=== PATIENT | male | born 1940 | race Caucasian/White ===

== ENCOUNTER 2017-03-07 17:48 | Inpatient (IN) ==
[2017-03-07 19:11] LABS: BASO% 0.4 % (0.0-0.8); EOS# 0.27 X1000 (0.0-0.7); EOS% 5.7 % (0.0-10.0); HEMATOCRIT 35.3 % (42.0-52.0); HEMOGLOBIN 11.8 g/dL (14.0-18.0); LYMPH% 23.2 % (20.5-51.1); MANUAL DIFF NEEDED? NO; MCH 35.3 PG (27-31); MCHC 33.4 g/dL (33-37); MCV 105.7 FL (81-99); MONO# 0.76 X1000 (0.11-0.59); MPV 9.8 FL (7.4-10.4); NEUT% 54.7 % (42.2-75.2); PLT 134 X1000 (130-400); RBC 3.34 XMIL (4.7-6.1)
[2017-03-07 19:20] LABS: INR 1.2; PROTIME 12.8 Seconds (9.2-11.7); PTT 25.7 Seconds (22.0-36.0)
[2017-03-07] MEDS ORDERED: ASPIRIN PO ONE (19:21)
[2017-03-07 19:38] LABS: AGAP 12; ALBUMIN 3.3 g/dL (3.5-5.0); ALKALINE PHOSPHATASE 70 U/L (32-122); BUN 15 mg/dL (8-22); CALCIUM 9.7 mg/dL (8.8-10.2); CHLORIDE 105 mmol/L (98-107); CK PROFILE 85 U/L (24-204); COSMO 278; GOT 29 U/L (10-34); GPT 18 U/L (10-44); MAGNESIUM 1.9 mg/dL (1.5-2.7); POTASSIUM 3.7 mmol/L (3.5-5.1); SODIUM 139 mmol/L (136-145); TCO2 22 mmol/L (25-35); TOTAL BILIRUBIN 0.46 mg/dL (0.20-1.00)
--- NOTE | 2017-03-07 19:43 | Diag Imaging Result Document ---
PROCEDURE NAME: CHEST-PORTABLE - 03/07/2017 AP PORTABLE CHEST AT 1836 HOURS: FINDINGS: There is some vague increase in opacity in the lower lung pfeiffer compared to 01/26/2015 which may be largely technical. Otherwise, the appearance of the chest has not changed significantly. IMPRESSION: No acute disease.
--- NOTE | 2017-03-07 20:19 | PROVIDER DOCUMENTATION ---
This chart was entered by Neeta Swan Scribe, acting as scribe for Geovanni Rose MD. HPI-General Adult - General Chief Complaint: Dizziness Stated Complaint: EXTREMELY LOW BP Time Seen by Provider: 03/07/17 18:18 Source: patient Allergies/Adverse Reactions: Patient Allergies Allergy/AdvReac Type Severity Reaction Status Date / Time morphine Allergy SWELLING Verified 03/07/17 18:28 Home Medications: Home Medication List Medication Instructions Recorded Confirmed Last Taken Type Aspirin 325 mg PO DAILY 01/26/15 03/07/17 03/07/17 10:00 History Azathioprine 50 mg PO BID 01/26/15 03/07/17 03/07/17 10:00 History Carvedilol 12.5 mg PO DAILY 01/26/15 03/07/17 03/07/17 10:00 History Esomeprazole [Nexium] 40 mg PO DAILY 01/26/15 03/07/17 03/07/17 10:00 History Infliximab [Remicade] 100 mg IV ORDERED 01/26/15 03/07/17 03/07/17 History Niacin [Niaspan] 750 mg PO BID 01/26/15 03/07/17 10/04/15 18:00 History 750 PRAVAstatin [Pravachol] 80 mg PO QHS 01/26/15 03/07/17 03/06/17 21:00 History RAMIpril [Altace] 2.5 mg PO DAILY 01/26/15 03/07/17 03/07/17 10:00 History Tamsulosin HCl 0.4 mg PO DAILY 01/26/15 03/07/17 03/06/17 History Vit B12/Lmefolate Ca/Vit B6/B2 1 each PO DAILY 01/26/15 03/07/17 03/07/17 10:00 History [Cerefolin Tablet] Alendronate Sodium 70 mg PO WE 09/29/15 03/07/17 03/01/17 History - History of Present Illness -Gen Adult Nature of Presenting Problems: 76 year old M presents to the ED with a cc of weakness and fatigue with an onset of this morning. Pt states that for the past week he has been staggering walking x1 week. PT denies shortness of breath, nausea, vomiting, and chest pains. Location of Pain/Injury: reports: none Pain Radiation: reports: no radiation Severity: reports: mild Onset/Duration: reports: 1 week ago Timing: reports: still present Context/Activities at Onset: reports: none Modifying Factors: improves with: nothing Associated Symptoms: reports: dizziness, fatigue, weakness Similar Symptoms Previously?: No Recently seen or treated by another doctor?: No Review of Systems - Adult - REVIEW OF SYSTEMS - ADULT Constitutional: reports: fatique. denies: chills, fever Eyes: reports: no symptoms reported Ears, Nose, Mouth & Throat: reports: no symptoms reported Cardiovascular: denies: chest pain, palpitations Respiratory: denies: cough, shortness of breath Gastrointestinal: denies: abdominal pain, nausea, vomiting Genitourinary: reports: no symptoms reported Musculoskeletal: reports: no symptoms reported Integumentary: reports: no symptoms reported Neurological: reports: dizziness/vertigo. denies: headache/migraines Psychiatric: reports: no symptoms reported Endocrine: reports: no symptoms reported Hematologic/Lymphatic: reports: no symptoms reported Allergic/Immunologic: reports: no symptoms reported All Other Systems: Reviewed and Negative Past History - Adult - PAST MEDICAL HISTORY-ADULT Review of Records: reports: Nursing Assessment Review, Medications Reviewed Major Childhood Illnesses: reports: denies history Cardiovascular: reports: HTN, MS Respiratory: reports: denies history Gastrointestinal: reports: denies history Obstetrical/Gynecological: reports: denies history Genitourinary: reports: denies history Musculoskeletal: reports: arthritis Neurological: reports: denies history Endocrine/Immune: reports: denies history Other Conditions: reports: denies history - PRIOR SURGERIES/PROCEDURES Surgical/Procedure History: reports: other (heart cath) - IMMUNIZATION STATUS Childhood Immunizations: See Nurse Assessment Flu Vaccine: See Nurse Assessment - FAMILY HISTORY Family History: reviewed, not pertinent - SOCIAL HISTORY Smoking: non-smoker Substance Use: none/never Alcohol Use Frequency: occasionally Physical Exam-General - PHYSICAL EXAM-ADULT Initial Vital Signs Reviewed: Yes - CONSTITUTIONAL General Appearance: appears well, alert, no apparent distress - RESPIRATORY Respiratory: chest non-tender, lungs clear, normal breath sounds - CARDIOVASCULAR Cardiovascular: bradycardia - GASTROINTESTINAL (ABDOMEN) Abdominal Exam: normal bowel sounds, non tender, soft - SKIN Integumentary: normal color, normal turgor, warm/dry - PSYCHIATRIC Psych/Mental Status: normal mood/affect, normal thought content, normal thought process, oriented x 3 Progress - PLAN OF CARE/RESULTS Progress/Plan/Lab Results: Vital Signs - 8 hr 03/07/17 18:02 03/07/17 18:13 Temperature 97.9 F Pulse Rate 57 L Pulse Rate [Standing] 68 Pulse Rate [Supine] 58 L Respiratory Rate 18 Blood Pressure 85/55 Blood Pressure [Standing] 79/51 Blood Pressure [Supine] 90/50 O2 Sat by Pulse Oximetry 100 Laboratory Results - last 24 hr 03/07/17 03/07/17 03/07/17 18:35 18:35 18:35 WBC 4.74 L RBC 3.34 L Hgb 11.8 L Hct 35.3 L MCV 105.7 H MCH 35.3 H MCHC 33.4 RDW Std Deviation 12.8 Plt Count 134 MPV 9.8 Immature Gran % (Auto) 0.0 Neut % (Auto) 54.7 Lymph % (Auto) 23.2 Winn % (Auto) 16.0 H Eos % (Auto) 5.7 Baso % (Auto) 0.4 Immature Gran # (Auto) 0.00 Neut # (Auto) 2.59 Lymph # (Auto) 1.10 L Winn # (Auto) 0.76 H Eos # (Auto) 0.27 Baso # (Auto) 0.02 PT INR PTT (Actin FS) D-Dimer 0.89 H Sodium 139 Potassium 3.7 Chloride 105 Carbon Dioxide 22 L Anion Gap 12 BUN 15 Creatinine 1.1 Estimated GFR/1.73 m2 > 60 BUN/Creatinine Ratio 14 Glucose 100 Calculated Osmolality 278 Calcium 9.7 Magnesium 1.9 Total Bilirubin 0.46 AST 29 ALT 18 Alkaline Phosphatase 70 Creatine Kinase 85 Troponin T Vik-B-Xsibczagnue Pept Total Protein 7.0 Albumin 3.3 L Globulin 3.7 Albumin/Globulin Ratio 0.9 03/07/17 03/07/17 03/07/17 18:35 18:35 18:35 WBC RBC Hgb Hct MCV MCH MCHC RDW Std Deviation Plt Count MPV Immature Gran % (Auto) Neut % (Auto) Lymph % (Auto) Winn % (Auto) Eos % (Auto) Baso % (Auto) Immature Gran # (Auto) Neut # (Auto) Lymph # (Auto) Winn # (Auto) Eos # (Auto) Baso # (Auto) PT 12.8 H INR 1.20 PTT (Actin FS) 25.7 D-Dimer Sodium Potassium Chloride Carbon Dioxide Anion Gap BUN Creatinine Estimated GFR/1.73 m2 BUN/Creatinine Ratio Glucose Calculated Osmolality Calcium Magnesium Total Bilirubin AST ALT Alkaline Phosphatase Creatine Kinase Troponin T < 0.010 [id number] Pept 611 H Total Protein Albumin Globulin Albumin/Globulin Ratio Orders Category Date Time Status Cardiac Monitoring DIRECTED Care 03/07/17 18:18 Active Saline Loc NOW Care 03/07/17 18:18 Active ANGIOGRAM/PULMONARY ARTERIES [CT] Stat Exams 03/07/17 19:57 Ordered CHEST-PORTABLE [RAD] Stat Exams 03/07/17 18:19 Draft CBC WITH ELECTRONIC DIFF [HEME] Stat Lab 03/07/17 18:35 Completed CK PROFILE [SP CHEM] Stat Lab 03/07/17 18:35 Completed COMPREHENSIVE METABOLIC PANEL [CHEM] Stat Lab 03/07/17 18:35 Completed D-DIMER [CHEM] Stat Lab 03/07/17 18:35 Completed MAGNESIUM [CHEM] Stat Lab 03/07/17 18:35 Completed PRO B-NATRIURETIC PEPTIDE Stat Lab 03/07/17 18:35 Completed PROTIME WITH INR [COAG] Stat Lab 03/07/17 18:35 Completed PTT [COAG] Stat Lab 03/07/17 18:35 Completed TROPONIN T Stat Lab 03/07/17 18:35 Completed Aspirin Med 03/07/17 19:21 Discontinued 325 mg PO NOW ONE Dopamine 400 mg/D5w Med 03/07/17 19:25 Active 400 mg in 500 ml IV 27.216 mls/hr Dr. Rose talked to Dr. Snow who was advised of this pt. PT will be admitted to [facility]. Result Diagrams: 03/08/17 04:40 03/08/17 04:40 - EKG 1 Time of EKG reading by physician:: 18:08 EKG Read and Signed by:: Geovanni Rose EKG Interpretation (*Must complete 3 of following elements*): Abnormal Rate: 52 Rhythm: sinus bradycardia with fusion complexes [place]: left ST Wave: non-specific ST changes (T wave abnormality, consider anterior ischemia ) Comments: Nonspecific intraventricular block - CT/MRI 1 CT Study: Angiogram Impression: Normal CT Results: no PE. COPD and pulmonary and pleural fibrosis: Dr. Branch - CONSULTS/PCP/HOSPITALIST Notification #1 *Consult/PCP/Hospitalist*: Dr. Olivo Time Discussed: 20:00 Consult Disposition: Admit #2 Consult: Transfer Center Time Discussed: 21:04 #3 Consult: Dr. Jones(-cardiology) Time Discussed: 22:47 Consult Disposition: other ("wean pt off of any medications that will slow heart rate, keep him on Dopamine, wean pt off of Dopamine in the morning, if heart rate will not stay up will take in the morning, hopefully we will have a bed") Departure - Departure Time of Disposition Decision: 05:50 DIAGNOSIS: Bradycardia Disposition: ADMITTED INPATIENT 09 Certified Medical Emergency: Emergent Condition: Fair - Critical Care Note This patient required my direct personal management.: Yes This chart was documented by the indicated scribe, (Neeta Swan Scribe) and accurately reflects the services I performed and decisions made by me, Geovanni Rose MD, as attested by the provider's signature.
[2017-03-07] MEDS: DOPAMINE 400 MG/D5W 400 MG/500 ML IV.SOLN IV SCH (20:38)
--- NOTE | 2017-03-07 20:51 | Diag Imaging Result Document ---
PROCEDURE NAME: ANGIOGRAM/PULMONARY ARTERIES - 03/07/2017 CT OF THE CHEST WITH INTRAVENOUS CONTRAST AND CLARITY: FINDINGS: There are fibrotic changes present in the left apex, more so than on the right side. There is extensive COPD. There are no filling defects in the pulmonary arteries. There is no evidence of aortic aneurysm or dissection. There are some coronary calcifications, particularly in the left anterior descending artery. There are granulomata in the liver and spleen. There are gallstones. Some fibrotic changes are seen in the posterior right upper lobe. IMPRESSION: No evidence of pulmonary emboli. COPD and pulmonary and pleural fibrosis.
--- NOTE | 2017-03-08 00:12 | HISTORY AND PHYSICAL ---
PRIMARY CARE PHYSICIAN: Dr. Luis E Moore. CHIEF COMPLAIN HE: Is dizziness, fatigue for several weeks. HISTORY OF PRESENTING ILLNESS: A 76-year-old male with a history of rheumatoid arthritis, hypertension and previous AK had presented to emergency department with complaint of having dizziness and fatigued and worsening weakness over the past several weeks. The patient states that he went to have some laboratories done prior to receiving treatment for his rheumatoid arthritis and at that time, he was noted to have low blood pressure and heart rate. He went home and he became more dizzy and fatigued and subsequently he was brought to the emergency department. In the ER, he was evaluated and found to have low blood pressure in the 80s systolic and also found to have a heart rate around 30s and 40s. The patient's case was discussed with cardiology in [place] who had accepted the patient for pacemaker evaluation however no beds were available. Subsequently the patient will be admitted to ICU until a bed is available in [facility]. At the time of my examination, patient had denied any headache, fever, chills, chest pain, shortness of breath, hemoptysis or any weight changes but complained of still feeling fatigued and dizzy. PAST MEDICAL HISTORY: Includes rheumatoid arthritis, hypertension, previous AK and low back pain. PAST SURGICAL HISTORY: Coronary stent, kidney cyst removal. ALLERGIES: To morphine. CURRENT MEDICATIONS: Include pravastatin 40 mg p.o. at bedtime, Niaspan 750 mg p.o. b.i.d., azathioprine 50 mg p.o. b.i.d., Flomax 0.4 mg p.o. daily, Altace 2.5 mg p.o. daily, carvedilol 12.5 mg p.o. daily, Nexium 40 mg p.o. daily, aspirin 325 mg p.o. daily, Remicade every 8 weeks, alendronate 70 mg weekly. SOCIAL HISTORY: He is a former smoker. Admits to social alcohol use. Denies any illicit drug use. He is fairly independent. FAMILY HISTORY: Positive for coronary disease in father. REVIEW OF SYSTEMS: Twelve point review of systems is as in HPI. Other systems negative. PHYSICAL EXAMINATION: GENERAL: Cooperative, friendly male. He is resting comfortably now. VITAL SIGNS: Temperature 97.9 degrees, pulse is 57, respiration 18, blood pressure 85/55. He is saturating 100%. HEENT: Atraumatic, normocephalic. Extraocular movements intact. PERRLA. NECK: No masses. CHEST: Clear to auscultation. CARDIOVASCULAR: Regular rate and rhythm. ABDOMEN: Soft. Positive bowel sounds. EXTREMITIES: No edema. NEURO: He is awake, alert, oriented x3. : No bladder distention. SKIN: Warm and due turgor. LABORATORIES AND STUDIES: WBC 4.74, hemoglobin 11.8, hematocrit 35.3, platelets is 134,000. Sodium 139, potassium 3.7, chloride 105, CO2 of 22, BUN is 15, creatinine is 1.1, glucose is 100. Troponin 0.010. ASSESSMENT: A 76-year-old male with a history of rheumatoid arthritis and previous myocardial infarction, apparently was having symptoms of dizziness and fatigue for several weeks. He presented to emergency department where he was noted to have a low heart rate in the 30s and 40s and also having low blood pressure. He was put on dopamine drip and he will be admitted to intensive care unit until a bed is available for patient to be transferred to [facility] for evaluation of possible pacemaker. 1. Symptomatic bradycardia possibly related to medications versus other cardiac pathology. 2. Hypotension. 3. Rheumatoid arthritis. 4. Chronic low back pain. PLAN: 1. We will admit patient to ICU. 2. We will continue patient on dopamine. 3. Continue with IV fluids. 4. Awaiting transfer to [facility]. 5. We will give patient adequate pain control. 6. We will put patient on DVT prophylaxis with SCDs. 7. We will continue to follow and reassess. cc: Andres Olivo MD
[2017-03-08] MEDS ORDERED: NS 1,000 ML IV SCH (01:12)
[2017-03-08] MEDS ORDERED: ZOFRAN IV PRN (01:12)
[2017-03-08 05:05] LABS: MANUAL DIFF NEEDED? NO
[2017-03-08 05:11] LABS: BASO% 0.3 % (0.0-0.8); EOS# 0.29 X1000 (0.0-0.7); HEMOGLOBIN 12.4 g/dL (14.0-18.0); LYMPH# 0.94 X1000 (1.2-3.4); LYMPH% 16.1 % (20.5-51.1); MCH 34.9 PG (27-31); MCHC 33.5 g/dL (33-37); MCV 104.2 FL (81-99); MONO# 0.72 X1000 (0.11-0.59); MONO% 12.3 % (1.7-9.3); MPV 9.5 FL (7.4-10.4); NEUT% 66.3 % (42.2-75.2); PLT 130 X1000 (130-400); RBC 3.55 XMIL (4.7-6.1)
[2017-03-08 05:32] LABS: AGAP 11; BUN 12 mg/dL (8-22); CALCIUM 9.4 mg/dL (8.8-10.2); CHLORIDE 105 mmol/L (98-107); COSMO 283; POTASSIUM 3.6 mmol/L (3.5-5.1); SODIUM 141 mmol/L (136-145); TCO2 25 mmol/L (25-35)
--- NOTE | 2017-03-08 06:09 | EKG Report ---
Test Performed on : 03/07/2017 6:08:00 PM Test Reason : Blood Pressure : / mmHG Vent. Rate : 052 BPM Atrial Rate : 052 BPM P-R Int : 142 ms QRS Dur : 130 ms QT Int : 444 ms P-R-T Axes : 037 -45 066 degrees QTc Int : 412 ms Sinus bradycardia. with fusion complexes Left axis deviation Nonspecific intraventricular block T wave abnormality, consider anterior ischemia Abnormal ECG When compared with ECG of 29-SEP-2015 09:27, fusion complexes are now present QRS duration has increased Unconfirmed Result
[2017-03-08] MEDS: PRILOSEC PO SCH (06:24)
[2017-03-08] MEDS ORDERED: ASPIRIN PO SCH (09:00)
--- NOTE | 2017-03-08 09:30 | CONSULTATION ---
DATE OF CONSULTATION: 03/08/2017 INDICATION: Hypotension. HISTORY OF PRESENT ILLNESS: Mr. Rosen is a 76-year-old male with a history of rheumatoid arthritis, hypertension and previous SD, previously followed by Dr. Karen Yao. He presented with complaints of dizziness, fatigue and weakness over the last few days. The patient has had poor oral intake over the last week for unclear reasons. He apparently went to Dr. Vega's office for a Remicade infusion. There, he was noted to be hypotensive; he is not sure what his heart rate he. There was a question about some relative bradycardia, but again we have no objective evidence to detail the blood pressures or heart rates in the office. Apparently, the patient was referred for possible pacemaker in [place] last night in the ER, but again I have no objective evidence to detail any bradycardic episodes as I have no EKG evidence, telemetry evidence or recorded heart rates in the vitals to show the patient was significantly bradycardic. Presently, he has been admitted to the ICU. He is on a low-dose dopamine drip, as well as IV fluids. The patient feels better today. He has not had any chest pain. He has had no shortness of breath. PAST MEDICAL HISTORY: 1. Rheumatoid arthritis. 2. Ischemic cardiomyopathy. Cardiac catheterization in 2014 demonstrated an EF of 30%. He had a patent stent in the left anterior descending. No significant disease in the circumflex or the right coronary. 3. Hypertension. 4. Hyperlipidemia. 5. Chronic anemia. 6. Reflux disease. 7. Rheumatoid arthritis. Currently on Remicade infusions. SOCIAL HISTORY: Former smoker. Occasional alcohol use. No illicit drugs. FAMILY HISTORY: Significant for coronary disease in his father. REVIEW OF SYSTEMS: A 10 system review of systems is negative, except for those things mentioned in HPI. PHYSICAL EXAMINATION: Vital Signs: The patient has been afebrile. His heart rates documented in our system have been between the 50s and the 80s. His heart rates yesterday up in the ICU have been anywhere from the 60s to 80s. His systolic blood pressures was documented at 85/55 on presentation. The immediate next check was documented almost 3 hours after that and was 111/69. His systolic blood pressures here in the ICU have been anywhere from the 90s to 120s. General: Generally, he is in no acute distress. HEENT: Oropharynx is moist. Poor dentition. Eye examination shows pink conjunctivae, white sclerae. Neck examination: Difficult secondary to an extensive cox. He has no obvious carotid bruits. Cardiovascular: He is in a regular rate and rhythm. He has no obvious murmurs. He has no S3. He has no lower extremity edema. Chest: Exam is clear bilaterally. He has no increased work of breathing. Abdomen: Soft, nontender, nondistended. He has no obvious organomegaly. Skin Exam: Warm and dry throughout without any rashes. Neurological: He is moving all extremities well. Cranial nerves 2-12 are intact without any sensation deficits. Psychiatric: He is alert, oriented, pleasant. He has normal mood and affect. PERTINENT DATA: He has a white count of 5.8. His hematocrit is 37. His platelet count is 130. His sodium is 141, his potassium is 3.6, his BUN is 12, his creatinine is 1. His TSH is 0.35. ProBNP was 611 on admit. His albumin level was 3.3. He had an EKG demonstrating sinus bradycardia at 52 beats per minute. He has evidence for anterior infarct, suggestion of a nonspecific intraventricular conduction delay, and appears a left bundle type pattern. He had a pulmonary arteriogram demonstrating no evidence of acute emboli, COPD, and pulmonary and pleural fibrosis. ASSESSMENT: 1. Ischemic cardiomyopathy appears relatively stable. 2. Relative hypotension with reports of bradycardia, but again no objective evidence here or from the doctor's office to support this. PLAN: I agree with withholding the ramipril as well as the Coreg. Dopamine will be decreased today. We just need to see where his blood pressure goes from here. I will decrease his aspirin to 81 mg daily. I will check a transthoracic echo today. Presently, we will continue to watch him on telemetry. His TSH was normal. cc: Ron Henao MD
[2017-03-08] MEDS: PATIENT'S OWN MED PO SCH (09:49)
[2017-03-08] MEDS: NORCO-7.5 PO PRN ×2 (09:51→18:38)
[2017-03-08] MEDS: IMURAN PO SCH ×2 (09:52→20:02)
[2017-03-08] MEDS: ASPIRIN PO SCH (09:52)
[2017-03-08] MEDS: DOPAMINE 400 MG/D5W 400 MG/500 ML IV.SOLN IV SCH (13:04)
--- NOTE | 2017-03-08 14:46 | PROGRESS NOTE ---
DATE: 03/08/2017 SUBJECTIVE: Patient is feeling fine. Denies any sensation of dizziness, lightheadedness, chest pain or shortness of breath or palpitations. OBJECTIVE: Vital Signs: Temperature 98.3 degrees, heart rate 72, respiratory rate 16, blood pressure 100/63, O2 saturation 100% on 2 L nasal cannula. General Examination: This is a 76-year- old male, lying in bed, in no acute distress. HEENT: Head is normocephalic and atraumatic. Anicteric sclerae and pale conjunctivae. Mucous membranes moist. Neck: Supple. No JVD noted. No carotid bruits. No lymphadenopathy. No thyromegaly. Cardiovascular: S1, S2 heard. Bradycardic. No murmurs, gallops, or rubs. Regular rate and rhythm. Respiratory: Clear bilaterally to auscultation. No work of breathing or using accessory muscles. Abdomen: Soft, nontender to palpation. Bowel sounds present. No organomegaly. Extremities: No clubbing, cyanosis, or edema. Peripheral pulses present in both legs. Neurological: Patient is alert and oriented x3. Able to move 4 extremities. Cranial nerves 2-12 grossly normal. LABORATORY DATA: CBC, BMP are completely unremarkable. ASSESSMENT AND PLAN: 1. Symptomatic bradycardia. 2. Ischemic cardiomyopathy. 3. Rheumatoid arthritis. 4. Low back pain. 5. Patient was admitted to hospital for symptomatic bradycardia but unfortunately there is no EKG that supports that report that diagnosis. Patient has been evaluated by Dr. Henao today and also yesterday Dr. Snow was consulted by phone and he thinks that this patient may need to be transferred to [facility]. But now, the recommendation for Surgery is to hold ramipril and beta-blockers and see how this patient does. Then if this patient needs pacemaker that can be arranged in the office. 6. For rheumatoid arthritis, we will continue with pain medication. 7. Further recommendations to follow according to the clinical situation of the patient. cc: Brodie Ramirez MD
[2017-03-08] MEDS ORDERED: PRAVACHOL PO SCH (21:00)
[2017-03-09 05:12] LABS: HDL 58 mg/dL (35-55); LDL 40 mg/dL; TRIGLYCERIDES 47 mg/dL (39-160); VLDL 9 mg/dL
[2017-03-09] MEDS: PRILOSEC PO SCH (06:04)
--- NOTE | 2017-03-09 06:53 | EKG Report ---
Test Performed on : 03/09/2017 06:08:20 AM Test Reason : hypotension Blood Pressure : / mmHG Vent. Rate : 066 BPM Atrial Rate : 066 BPM P-R Int : 138 ms QRS Dur : 128 ms QT Int : 376 ms P-R-T Axes : 058 -46 113 degrees QTc Int : 394 ms Normal sinus rhythm. Left axis deviation Left bundle branch block Nonspecific T wave abnormality Abnormal ECG When compared with ECG of 07-MAR-2017 18:08, fusion complexes are no longer present Nonspecific T wave abnormality no longer evident in Inferior leads Nonspecific T wave abnormality has replaced inverted T waves in Anterior leads Confirmed by Norman VENEGAS, Patrice Bai ([id number]) on 03/09/2017 8:38:43 AM
--- NOTE | 2017-03-09 08:09 | ECHO REPORT ---
ORDER DATE: 03/08/2017 INTERPRETING PHYSICIAN: Carmine Maldonado MD. CLINICAL INDICATIONS: A 76-year-old male with hypotension, history of myocardial infarction. M-MODE MEASUREMENTS: Right ventricle: 2.8 cm. Left ventricle end diastole: 6.4 cm. Left ventricle end systole: 5.3 cm. Posterior wall: 0.9 cm. Interventricular septum: 0.9 cm. Left atrium: 5.5 cm. Aortic root: 3.6 cm. SUMMARY OF 2-DIMENSIONAL IMAGIN. The left ventricular chamber is significantly dilated. The ejection fraction by computer tracing is estimated at 35% to 37%. Visually, it is more like 30%. 2. There are multiple areas of wall motion abnormality involving the anteroseptal segment that is akinetic. The apex is dyskinetic. The anterior wall, mid to apical, is akinetic. The mid to distal inferior wall is also severely impaired. The mid interventricular septum and the apical septal segment are akinetic. That would be consistent with severe ischemic cardiomyopathy, at least 2-vessel coronary disease. 3. The right ventricle is at the upper limits of normal, shows good function. 4. The aortic valve looks normal, color flow mapping unremarkable. 5. The mitral valve shows a very mild degree of regurgitation. Pulsed wave Doppler of mitral inflow shows mild reversal of the E and the A wave. The tissue Doppler of septal and lateral mitral annulus averages 7 cm. Pulsed wave Doppler of pulmonary venous flow is normal. There is no evidence of diastolic dysfunction. Color flow mapping of the mitral valve indicates a mild degree of regurgitation. 6. The tricuspid valve looks normal with a mild degree of regurgitation. The inferior vena cava is not dilated. Pulmonary pressure is estimated at 27-32 mmHg. 7. The left atrium is moderately to significantly enlarged. 8. The pulmonic valve is normal, color flow mapping unremarkable. 9. There is no pericardial effusion. I do not see definite evidence of thrombus. Clinical correlation recommended. cc: MD Ron Dickey MD
[2017-03-09] MEDS: DOPAMINE 400 MG/D5W 400 MG/500 ML IV.SOLN IV SCH (08:47)
[2017-03-09] MEDS: IMURAN PO SCH (10:22)
[2017-03-09] MEDS: PATIENT'S OWN MED PO SCH (10:22)
[2017-03-09] MEDS: ASPIRIN PO SCH (10:22)
[2017-03-09 12:04] VITALS: BP 127/78
--- NOTE | 2017-03-10 13:10 | DISCHARGE SUMMARY ---
ADMISSION DATE: 03/07/2017 DISCHARGE DATE: 03/09/2017 CONSULTATIONS: Ron Henao MD, Cardiology. PERTINENT PROCEDURES: 1. Pulmonary arteriogram showed no evidence of pulmonary emboli. COPD and pulmonary and pleural fibrosis. 2. Echocardiogram showed an EF of 35% to 37%. Multiple areas of wall motion abnormality. Mild degree of mitral valve regurgitation. DISCHARGE DIAGNOSES: 1. Symptomatic bradycardia; however, there is no EKG that support diagnosis. Patient evaluated by Dr. Henao. They have held his verapamil as well as decreased his beta blockers. 2. Ischemic cardiomyopathy. Aware. 3. Rheumatoid arthritis. Continue home medications. 4. Low back pain. Continue current management. HOSPITAL COURSE: Mr. Rosen is a 76-year-old gentleman with a history of rheumatoid arthritis, hypertension and previous [place], presented to the emergency department with complaint of having dizziness, fatigue, and worsening weakness over the past several weeks. The patient went to have labs done prior to receiving treatment for his rheumatoid arthritis and at that time, he is noted to have low blood pressure and heart rate. He went home where he became more dizzy and fatigued and subsequently was brought to the ED. He was found to have a low blood pressure in the 80s and found to have a heart rate in the 30 and 40s days. The case was discussed with Cardiology in [place] who accepted the patient for pacemaker evaluation; however, no beds were available. The patient was admitted to the ICU with a cardiology consult. He was started on IV fluids. His ramipril as well as Coreg were held. He was placed on a dopamine drip. His aspirin was decreased to 81 mg daily. He also underwent echocardiogram. His TSH was normal. Pulmonary arteriogram was negative. It just showed COPD, pulmonary and pleural fibrosis. Unfortunately, there is no EKG that supports the diagnosis of bradycardia. For now, the recommendation for the patient being transferred is just to hold his ramipril and beta-blockers and see the patient does. He was able to come off his dopamine drip. He has maintained a normal sinus rhythm with appropriate blood pressures. Heart rate has been 100-120s over 60s and 70s. The patient is approved for discharge today by Cardiology with the discontinuation of his ramipril, as well as a decrease in his beta chucky and a decrease in his home aspirin to 81. Vital signs at time of his discharge, temperature 98.8 degrees, heart rate 66, respirations 13, blood pressure is 127/78, O2 is 98% on room air. DISCHARGE MEDICINES: 1. Alendronate sodium 70 mg p.o. WE. 2. Low-dose aspirin 81 mg p.o. daily. 3. Azathioprine 50 mg p.o. b.i.d. 4. Coreg 3.125 mg p.o. b.i.d. 5. Nexium 40 mg p.o. daily. 6. Remicade 100 mg g IV as ordered. 7. Niaspan 70 mg p.o. b.i.d. 8. Pravachol 80 mg p.o. 9. Tamsulosin HCL 0.4 mg p.o. daily. 10. Cerefolin 1 each p.o. daily. FOLLOWUP: Patient is being discharged home. He will need to follow up with his primary care physician, Dr. Mehreen Moore in 7-10 days as well as his senior java programmer, in 1-2 weeks after his discharge. The patient's Coreg has been reduced as well as his aspirin has been reduced. If patient has any more asymptomatic episodes of dizziness, he is to return to the ED for any worsening of symptoms. TIME SPENT: Discharge time 36 minutes. Dictated by TRUNG Spring for Brodie Ramirez MD cc: MD Mehreen Chan MD MTDD
== END 2017-03-09 15:06 | disposition home or self-care (01) ==
LOC: ED 17:48 → ICU 23:59 → SUATTDRO 23:59
PROVIDERS: ATTEND Internal Medicine

== ENCOUNTER 2019-02-22 13:24 | Inpatient (IN) ==
[2019-02-22] MEDS ORDERED: NS 1,000 ML IV ONE ×2 (14:21→15:08)
[2019-02-22 14:33] LABS: BASO# 0.03 X1000 (0.0-0.2); BASO% 0.1 % (0.0-0.8); HEMATOCRIT 41.7 % (42.0-52.0); HEMOGLOBIN 14.3 g/dL (14.0-18.0); IMM GRAN# 0.07 X1000 (0.0-0.04); IMM GRAN% 0.3 % (0.0-0.5); LYMPH# 1.31 X1000 (1.2-3.4); MCH 33.6 PG (27-31); MCHC 34.3 g/dL (33-37); MCV 97.9 FL (81-99); MONO# 1.54 X1000 (0.11-0.59); MONO% 7.1 % (1.7-9.3); MPV 10.1 FL (7.4-10.4); NEUT# 18.75 X1000 (1.4-6.5); NEUT% 86.5 % (42.2-75.2); PLT 296 X1000 (130-400); RBC 4.26 XMIL (4.7-6.1); RDW 13.4 % (11.5-14.5)
[2019-02-22 14:49] LABS: INR 1.18; PROTIME 15.6 Seconds (11.0-16.0)
[2019-02-22 14:50] LABS: PTT 35.6 Seconds (22.3-41.8)
[2019-02-22 14:56] LABS: ALBUMIN 3.9 g/dL (3.5-5.0); CREATININE 3.9 mg/dL (0.7-1.2); POTASSIUM 4.4 mmol/L (3.5-5.1); TOTAL BILIRUBIN 0.9 mg/dL (0.20-1.00); TOTAL PROTEIN 8.9 g/dL (6.3-8.3)
--- NOTE | 2019-02-22 15:03 | Diag Imaging Result Doc PS360 ---
EXAM: CHEST-PORTABLE HISTORY: vomiting TECHNIQUE: Single view of the chest was performed portably. COMPARISON: 03/07/2017 FINDINGS: The cardiomediastinal silhouette is within normal limits. There is a left transvenous pacemaker. The pulmonary vasculature is not congested. No infiltrate, effusion, or pneumothorax is appreciated. IMPRESSION: No acute cardiopulmonary abnormality is identified. Electronically signed by Moira Del Valle 02/22/2019 3:01 PM
[2019-02-22] MEDS ORDERED: TYLENOL PO PRN (16:23)
[2019-02-22] MEDS ORDERED: ZOFRAN IV PRN (16:23)
--- NOTE | 2019-02-22 16:23 | Diag Imaging Result Doc PS360 ---
EXAM: ABDOMEN FLAT/UPRIGHT 02/22/2019 HISTORY: pain TECHNIQUE: Flat and upright abdomen COMMENT: There is a fair amount of stool in the ascending colon. There is a loop of small bowel in the midabdomen distended with gas. There is no evidence for organomegaly or mass. There are no previous studies. IMPRESSION: Constipation. Electronically signed by Ran Branch 02/22/2019 4:21 PM
[2019-02-22] MEDS ORDERED: PROTONIX 80 MG in NS 80 ML IV SCH (16:30)
--- NOTE | 2019-02-22 16:41 | EKG Report ---
Test Performed on : 02/22/2019 1:35:27 PM Test Reason : ER Blood Pressure : / mmHG Vent. Rate : 094 BPM Atrial Rate : 094 BPM P-R Int : 144 ms QRS Dur : 130 ms QT Int : 448 ms P-R-T Axes : 068 -70 085 degrees QTc Int : 560 ms Atrial-sensed ventricular-paced rhythm Abnormal ECG When compared with ECG of 09-MAR-2017 06:08, Electronic ventricular pacemaker has replaced Sinus rhythm. Unconfirmed Result
[2019-02-22] MEDS: NS 1,000 ML IV SCH (17:04)
--- NOTE | 2019-02-22 17:52 | HISTORY AND PHYSICAL ---
PRIMARY CARE PROVIDER: Dr. Mehreen Moore. UROLOGIST: Dr. Rishi Arrieta. DRINK MIXER: Dr. Ron Henao. REMICADE INFUSION: At Dr. Myers. SKINNING MACHINE FEEDER: Dr. Barrios. CHIEF COMPLAINT: Nausea and vomiting. HISTORY OF PRESENT ILLNESS: Mr. Geovani Rosen is a 78-year-old male with a medical history of atrial fibrillation on Eliquis with a permanent pacemaker, rheumatoid arthritis, myocardial infarction with a stent, and he states he has a history of actually having hypotension, low blood pressures. Apparently, last Monday morning was the last time he took all of his medications except for his Nexium. This includes Eliquis that he is on for the a-fib. He stopped that then, as well. He states that he had had some Activia and Ensure for breakfast and afterwards started developing burning epigastric pain and just below the sternum. He has not had an appetite and he has actually had issues with swallowing and states he has a hard time getting down pills, and at least over the past week, apparently, there has been at least a 10-pound weight loss over the past couple of weeks. His last bowel movement was last night. He states it was formed and brown, but he has been having vomiting that originally started out as water but now is black, and he vomits several times a day and has been unable to hold anything down. He denies having any fever or chills, and there are no other complaints other than what was just listed, other than he has become much more weak due to being dehydrated and malnourished. He comes in, and a sample of the emesis was sent, and it was positive for blood. He was also hypotensive with blood pressure in the 90s that improved up to 126 after receiving IV fluids. He still has the nausea. He still has epigastric pain, and will admit for GI workup of either GI bleed or gastritis due to being on Eliquis and continuous emesis. Also, he has acute kidney injury which will treat due to the dehydration and unable to keep anything down, and another problem where he has had dysphagia and he has had weight loss along with that and having difficulties taking his medications. He will need to be transferred to [facility] due to the need for a english drawer workup. PAST MEDICAL HISTORY: 1. Atrial fibrillation on Eliquis with a permanent pacemaker. 2. Rheumatoid arthritis. 3. Kidney cyst, and is seen by Dr. Arrieta for that, has actually had the cyst removed in the past. 4. Myocardial infarction or coronary artery disease with a history of cardiac stent x1. 5. Chronic lower back pain. 6. Low blood pressure. 7. Although he states he has low blood pressure, he does have a history of hypertension, as he takes antihypertensives. 8. BPH. SURGICAL HISTORY: 1. Cardiac stent x1 in 2004. 2. Kidney cyst removed. 3. Right lower lobectomy on the lung due to chronic pneumonia and airspace disease. 4. Back surgery. 5. Bilateral eye lens implants. 6. His last left heart cath was in 2014. 7. Left kidney cyst removed. 8. In 2017, a permanent pacemaker. SOCIAL HISTORY: Quit smoking in the late 1970s. Denies alcohol. Denies illicit drug use. He lives at home alone, but his grandson stays with him to help him out. He usually can get around without any problems, but only recently has needed an assistive device due to the increased weakness. FAMILY HISTORY: Father had myocardial infarction at 62. Mother had stroke at 70. One brother had myocardial infarction at 80. Another brother at 64 had a myocardial infarction. Another brother at 64 had cancer of unknown origin due to advanced stage when it was found. Sister of lupus at 67, and he has 3 more living siblings, 2 brothers age 79 and 82 and 1 sister age 70. ALLERGIES: Morphine. HOME MEDICATIONS: 1. Pravachol 80 mg p.o. nightly. 2. Azathioprine 50 mg p.o. twice daily. 3. Multivitamin one tab p.o. daily. 4. Cozaar 25 mg p.o. daily. 5. Eliquis 5 mg p.o. twice daily. 6. Nexium 40 mg p.o. daily. 7. Remicade 100 mg IV as directed. 8. Tamsulosin 0.4 mg p.o. daily. 9. Aspirin 81 mg daily. 10. Coreg 3.125 mg p.o. twice daily. REVIEW OF SYSTEMS: Fourteen-point review of systems are complete and all were negative except for those mentioned in the above HPI. PHYSICAL EXAMINATION: VITAL SIGNS: Temperature 97.8, heart rate 79, respiratory rate 20, blood pressure 126/81, O2 saturation 97% on 2 L. GENERAL: Mr. Geovani Rosen is a 78-year-old male who is in no acute distress, is able to answers questions appropriately. He is hard of hearing. HEENT: Atraumatic, normocephalic. Pupils equal, round, reactive to light. Extraocular movements intact. Mucous membranes are dry. Sclera is pale. NECK: Trachea midline. CARDIOVASCULAR: S1, S2, regular rate and rhythm, no rubs, gallops, or murmurs. No lower extremity edema. +2 dorsalis and radial pulses. Negative JVD or carotid bruits. PULMONARY: Clear to auscultate bilateral breath sounds. No accessory muscle use or work of breathing noted. GI: Soft. Hypoactive bowel sounds x4. Nontender with palpation this time. EXTREMITIES: About a 4/5 strength in all extremities. Moves all extremities equally. NEUROLOGICAL: Alert and oriented x4, follows commands. Sensory is intact. SKIN: Warm, dry, and intact. LABORATORY DATA: White blood cells 21,000, hemoglobin 14, hematocrit 41, platelet count 296. INR is 1.18. PTT is 35.6. Sodium 132, potassium 4.4, BUN 68, creatinine 3.9, glucose 156, calcium 10. Bilirubin 0.96, AST 16, ALT 10. CK is 40, troponin less than 0.01. Albumin is 3.9. Gastroccult is positive. IMAGING: Abdominal x-ray shows constipation. Chest x-ray shows no acute findings. ASSESSMENT AND PLAN: 1. Acute gastritis versus upper gastrointestinal bleed. Emesis started out as clear and then turned dark over the past week, and he has had excessive emesis. He does take Eliquis to prevent stroke with atrial fibrillation but the last time he took that was this past Monday, so he has been off of it for 3 days and is also on aspirin. Will hold those for now. Will start him on Carafate q.6 h., Protonix drip. He is hemoconcentrated, actually, not low on his hemoglobin and hematocrit, but this is likely due to the significant amount of emesis he has been having, and he has complained of epigastric pain, but that has resolved. 2. Acute kidney injury. Creatinine is 3.9 with a BUN of 68, and he can run anywhere from 1 to 1.3 on his creatinine. He seems very dehydrated--all of his numbers look dehydrated--and he is going to receive IV fluid hydration. 3. Leukocytosis. This could be inflammatory. He is afebrile since he has been here. He is not tachycardic. His blood pressure was a little bit soft at first, but this is likely just from dehydration, so will monitor the white count. Chest x-ray does not show any sign of pneumonia, either. A urinalysis is pending. 4. History of hypertension, but a little hypotensive at this time. We are going to hold those meds for now. 5. Benign prostatic hypertrophy. We will continue the tamsulosin. Otherwise, he would be voiding every 30 minutes and not fully emptying his bladder. 6. Coronary artery disease with a history of myocardial infarction and stent. Holding meds for now. We are going to hold aspirin for now and the beta-chucky. 7. History of atrial fibrillation with permanent pacemaker. He has been on Eliquis for prevention of stoke. That is going to have to be held for now but will resume as soon as possible. 8. DVT prophylaxis. SCDs. 9. Complaints of dysphagia, difficulty with swallowing pills or medications, and he has had weight loss due to this and protein calorie malnutrition; he has been able to take in stuff like Ensure and Activia, but it has to be really soft food, so he will need a swallow evaluation. Dictated by TRUNG Candlearia for Konstantin Hurtado MD cc: TRUNG Candelaria MD
--- NOTE | 2019-02-22 18:16 | PROVIDER DOCUMENTATION ---
This chart was entered by Cindy Bernabe Scribe, acting as scribe for Freedom Kraft MD. HPI-Abdominal Pain/GI Problem - General Chief Complaint: Nausea/Vomiting Stated Complaint: generalized weakness Time Seen by Provider: 02/22/19 13:51 Source: patient Allergies/Adverse Reactions: Patient Allergies Allergy/AdvReac Type Severity Reaction Status Date / Time morphine Allergy SWELLING Verified 10/14/18 16:30 Home Medications: Home Medication List Medication Instructions Recorded Confirmed Last Taken Type Azathioprine 50 mg PO BID 01/26/15 02/22/19 10/14/18 07:30 History Esomeprazole [Nexium] 40 mg PO DAILY 01/26/15 02/22/19 10/14/18 07:30 History Infliximab [Remicade] 100 mg IV ORDERED 01/26/15 02/22/19 03/07/17 History PRAVAstatin [Pravachol] 80 mg PO QHS 01/26/15 02/22/19 10/14/18 07:30 History Tamsulosin HCl 0.4 mg PO DAILY 01/26/15 02/22/19 10/14/18 07:30 History Vit B12/Lmefolate Ca/Vit B6/B2 1 each PO DAILY 01/26/15 02/22/19 10/14/18 07:30 History [Cerefolin Tablet] Aspirin [Aspir-Low] 81 mg PO DAILY #30 tablet. 03/09/17 02/22/19 10/14/18 07:30 Rx Carvedilol [Coreg] 3.125 mg PO BID #60 tablet 03/09/17 02/22/19 10/14/18 07:30 Rx Losartan [Cozaar] 25 mg PO DAILY 10/14/18 02/22/19 10/14/18 07:30 History Apixaban [Eliquis] 5 mg PO BID 02/22/19 02/22/19 Unknown History Apixaban [Eliquis] 5 mg PO BID 02/22/19 02/22/19 Unknown History - History of Present Illness-ABD Nature of Presenting Problems: 78 yom presents to ED c/o low blood pressure, nausea, vomiting, generalized weakness, dizziness, passing out, SOB, weight loss, decreased appetitie and terrible abdominal pain for last 4 days that is getting worse. Pt states he is having trouble swallowing his meds and can only eat activia. Pt states he was given meds to help increase appetite but they didn't help, so he stopped them. Pt has hx of ND, Afib and HTN. Pt has pacemaker/defibrillator implanted in left upper chest. Pt blood pressure is 79/64 upon exam. Abdominal Pain Onset Location: reports: LUQ Pain Radiation: reports: no radiation Quality of Pain: reports: pressure, tightness Severity in ED: reports: moderate Onset/Duration: reports: 4 days ago Timing: reports: still present, getting worse Modifying Factors: improves with: nothing Review of Systems - Adult - REVIEW OF SYSTEMS - ADULT Constitutional: reports: see HPI, chills, fatique, weight loss Eyes: reports: no symptoms reported Ears, Nose, Mouth & Throat: reports: no symptoms reported Cardiovascular: reports: no symptoms reported Respiratory: reports: see HPI, dyspnea on exertion, shortness of breath. denies: cough Gastrointestinal: reports: see HPI, abdominal pain (LUQ), hematemesis, nausea, poor appetite, vomiting. denies: rectal bleeding Genitourinary: reports: no symptoms reported Musculoskeletal: reports: no symptoms reported Integumentary: reports: no symptoms reported Neurological: reports: see HPI, dizziness/vertigo, syncope. denies: tremors Psychiatric: reports: no symptoms reported Endocrine: reports: no symptoms reported Hematologic/Lymphatic: reports: no symptoms reported Allergic/Immunologic: reports: no symptoms reported All Other Systems: Reviewed and Negative Past History - Adult - PAST MEDICAL HISTORY-ADULT Review of Records: reports: Nursing Assessment Review, Medications Reviewed, Social history reviewed & non-contributory. Major Childhood Illnesses: reports: denies history Cardiovascular: reports: HTN, ND Respiratory: reports: denies history Gastrointestinal: reports: denies history Obstetrical/Gynecological: reports: denies history Genitourinary: reports: denies history Musculoskeletal: reports: arthritis Neurological: reports: denies history Endocrine/Immune: reports: denies history Other Conditions: reports: denies history - PRIOR SURGERIES/PROCEDURES Surgical/Procedure History: reports: other (heart cath) - IMMUNIZATION STATUS Childhood Immunizations: See Nurse Assessment Flu Vaccine: See Nurse Assessment - FAMILY HISTORY Family History: reviewed, not pertinent - SOCIAL HISTORY Smoking: quit greater than 1 year Physical Exam-General - CONSTITUTIONAL General Appearance: alert, thin. negative: combative - HEAD, EARS, NOSE, MOUTH & THROAT HENMT: TMs normal. negative: moist mucous membranes, angioedema - NECK Neck: supple, Brudzinski's sign, carotid bruit - RESPIRATORY Respiratory: chest non-tender, decreased breath sounds. negative: wheezing - CARDIOVASCULAR Cardiovascular: no edema, no gallop, no JVD, no murmur. negative: tachycardia - GASTROINTESTINAL (ABDOMEN) Abdominal Exam: soft. negative: rebound - LYMPHATIC Lymphatic: no adenopathy. negative: striations - MUSCULOSKELETAL Back Exam: other (thin bones). negative: ecchymosis, swelling Extremity: no pedal edema, other (thin bones, bad balance). negative: inflammation - SKIN Integumentary: negative: diaphoresis, jaundice Progress - PLAN OF CARE/RESULTS Progress/Plan/Lab Results: Vital Signs - 8 hr 02/22/19 13:26 Temperature 97.0 F L Pulse Rate 92 H Respiratory Rate 16 Blood Pressure 103/86 O2 Sat by Pulse Oximetry 95 Laboratory Results - last 24 hr 02/22/19 13:49 Gastric Occult Blood POSITIVE A Orders Category Date Time Status CHEST-PORTABLE [RAD] Stat Exams 02/22/19 13:53 Ordered CBC WITH ELECTRONIC DIFF [HEME] Stat Lab 02/22/19 13:52 Ordered COMPREHENSIVE METABOLIC PANEL [CHEM] Stat Lab 02/22/19 13:58 Ordered OCCULT BLOOD NON-FECES PL Stat Lab 02/22/19 13:49 Completed Result Diagrams: 02/22/19 13:58 02/22/19 13:58 - EKG 1 Time of EKG reading by physician:: 13:35 EKG Read and Signed by:: Freedom Kraft EKG Interpretation (*Must complete 3 of following elements*): Abnormal Rate: 94 Rhythm: atrial sensed ventricular paced [place]: normal ST Wave: normal Departure - Departure Date of Disposition Decision: 02/22/19 Time of Disposition Decision: 18:14 DIAGNOSIS: History of GI bleed Hypotension Qualifiers: Hypotension type: hypotension due to hypovolemia Qualified Code(s): I95.89 - Other hypotension; E86.1 - Hypovolemia Disposition: HOME 01 Certified Medical Emergency: Emergent Condition: Stable - Critical Care Note This patient required my direct & personal management of CC.: No Attestation - Physician/ NATE Attestation Patient care was provided by Advanced Practice Provider:: No The physician spent face to face time with patient:: Yes Advanced Practice Provider documentation review:: Supervising physician onsite and consulted in the evaluation and care of this patient. The physician did have a face to face encounter with the patient. This chart was documented by the indicated scribe, (Cindy Bernabe Scribe) and accurately reflects the services I performed and decisions made by me, Freedom Karft MD, as attested by the provider's signature.
--- NOTE | 2019-02-22 18:51 | HISTORY AND PHYSICAL ---
ADDENDUM REPORT: History and physical addendum with TRUNG Candelaria. HISTORY: This is a 78-year-old male with history of atrial fibrillation, rheumatoid arthritis, CAD, who presents with nausea, vomiting. He has had poor appetite for the last several weeks, difficulty swallowing. He reports that the vomiting was watery and is black and tarry, although no blood clots. It was Gastroccult positive. He is not anemic, but he is likely to some degree hemoconcentrated. He was also hypotensive. He denies any significant NSAID use, but he does use aspirin and Eliquis for his history of atrial fibrillation. He is also on azathioprine. EXAM: On his exam, he is not hypotensive. His mentation is intact. LABS: He does have a white count of 21,000 and a BUN and creatinine of 68 and 3.9. PROBLEM LIST: 1. Upper gastrointestinal bleed. We will continue IV fluids and follow closely. Avoid nephrotoxic agents. He also takes Remicade. We will need to bladder scan him, but I do think he needs endoscopy, because he has hematemesis and is at risk for ulcer. 2. Acute kidney injury, likely related to dehydration. We will continue to follow closely. In any case, patient will be monitored. We will obtain a CT scan. I am going to give him oral contrast just to better evaluate his gastrointestinal tract and follow. We will continue hydration. Monitor urine electrolytes and follow closely. 3. We are going to put him in the CICU to follow closely. This is a [id number] encounter note. cc: Konstantin Hurtado MD
--- NOTE | 2019-02-22 19:08 | Diag Imaging Result Doc PS360 ---
EXAM: CT ABDOMEN/PELVIS W/O CONTRAST 02/22/2019 HISTORY: pain, weight loss TECHNIQUE: This exam was performed using automated exposure control, adjustment of mA or kV according to patient size, and/or use of iterative reconstruction technique. COMMENT: There are increased interstitial opacities in both lung bases compared to the previous study of 09/02/2015. The stomach is distended. There is fluid in the distal esophagus. There are gallstones. There is granulomatous calcification in the liver and spleen. 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 There are fluid-filled distended proximal small bowel loops. There is solid stool in the ascending colon. The distal small bowel is not distended. There is a transitional zone on the left side around image 80. Some fluid is present as well is stool in the ascending colon. The descending colon and sigmoid are normal in caliber. There is no evidence of free fluid. The urinary bladder is slightly distended. Compared to the previous study, the large left renal cyst is no longer present. There is less stool and more fluid in the right colon and the fluid in the small bowel was not previously present. IMPRESSION: 1. Pulmonary edema. 2. Constipation. 3. Ileus versus partial small bowel obstruction. Gastric distention and reflux. Electronically signed by Ran Branch 02/22/2019 7:06 PM
[2019-02-22] MEDS: CARAFATE LIQUID PO SCH (21:58)
[2019-02-22 22:34] LABS: URINE SOURCE CATH
[2019-02-22 22:49] LABS: UR CREAT RANDOM 72.8 mg/dL (14-26)
[2019-02-22 23:25] LABS: BILIRUBIN URINE NEGATIVE (NEGATIVE); BLOOD URINE NEGATIVE (NEGATIVE); COLOR YELLOW; GLUCOSE URINE NEGATIVE (NEGATIVE); KETONE URINE NEGATIVE (NEGATIVE); LEUKOCYTES URINE NEGATIVE (NEGATIVE); NITRITE URINE NEGATIVE (NEGATIVE); PROTEIN URINE 30 mg/dL (NEGATIVE); SP GRAVITY URINE 1.017; TURBIDITY URINE CLEAR (CLEAR); UR EPITHELIAL CELLS <10 /HPF (<10); URINE BACTERIA NEGATIVE /HPF; URINE RBC <10 /HPF (<10); URINE WBC <10 /HPF (<10); UROBILINOGEN URINE NORMAL (NORMAL)
[2019-02-23] MEDS: NS 1,000 ML IV SCH ×4 (00:49→19:07)
[2019-02-23] MEDS: CARAFATE LIQUID PO SCH ×4 (03:10→20:33)
[2019-02-23] MEDS: PROTONIX 80 MG in NS 80 ML IV SCH ×2 (03:10→13:56)
[2019-02-23 05:38] LABS: INR 1.53; PROTIME 19.6 Seconds (11.0-16.0); PTT 34.1 Seconds (22.3-41.8)
[2019-02-23 05:43] LABS: EOS# 0.05 X1000 (0.0-0.7); EOS% 0.6 % (0.0-10.0); HEMATOCRIT 26.7 % (42.0-52.0); HEMOGLOBIN 9.2 g/dL (14.0-18.0); IMM GRAN# 0.02 X1000 (0.0-0.04); IMM GRAN% 0.2 % (0.0-0.5); LYMPH% 13.6 % (20.5-51.1); MCH 33.6 PG (27-31); MCHC 34.5 g/dL (33-37); MCV 97.4 FL (81-99); MONO# 1.08 X1000 (0.11-0.59); MONO% 12.3 % (1.7-9.3); MPV 9.7 FL (7.4-10.4); NEUT# 6.45 X1000 (1.4-6.5); NEUT% 73.3 % (42.2-75.2); PLT 214 X1000 (130-400); RBC 2.74 XMIL (4.7-6.1); RDW 12.9 % (11.5-14.5)
[2019-02-23 06:10] LABS: ALB/GLOB RATIO 0.8; ALBUMIN 2.6 g/dL (3.5-5.0); CALCIUM 7.2 mg/dL (8.8-10.2); CREATININE 2.1 mg/dL (0.7-1.2); MAGNESIUM 2.2 mg/dL (1.5-2.7); POTASSIUM 3.2 mmol/L (3.5-5.1); TOTAL BILIRUBIN 0.59 mg/dL (0.20-1.00); TOTAL PROTEIN 5.9 g/dL (6.3-8.3)
[2019-02-23] MEDS: FLOMAX PO SCH (08:05)
--- NOTE | 2019-02-23 17:21 | GASTROENTEROLOGY CONSULTATION ---
DATE: 02/23/2019 REASON FOR CONSULTATION: Nausea, vomiting, hematemesis, anemia. HISTORY OF PRESENT ILLNESS: This is a 78-year-old male, he has a history of coronary artery disease, atrial fibrillation, history of defibrillator pacemaker placement. He has been on Eliquis and aspirin. Patient reports decreased appetite over the last week. He has reported some issues with nausea also reported dysphagia, he has had a hard time taking his medications and has actually not been taking most of his medications since last Monday. Patient's son is at the bedside and states his last Eliquis, aspirin was on Monday. He reports no other NSAID use. Patient lives with his grandson who reports he had a bowel movement on that was reported as brown in color and then has had a loose bowel movement today. Patient had Hemoccult-positive emesis contents. The patient reports having a colonoscopy in the past by Dr. Kelvin Jamil possibly 2 years ago with some reported small polyps. Patient states usually has a bowel movement every other day. He reports over the last several weeks he has had a loss in appetite and therefore reports a decrease in bowel movements. PAST MEDICAL HISTORY: Atrial fibrillation, history of defibrillator pacemaker placement, rheumatoid arthritis, history of kidney cyst, history of myocardial infarction, coronary artery disease, history of cardiac stent placement, BPH, history of hypertension. Rheumatoid arthritis. SURGICAL HISTORY: Cardiac stent placement in 2004, kidney cysts removed, right lower lobectomy, back surgery, cataract surgery, defibrillator pacemaker placement, cyst from his right neck removed. ALLERGIES: Morphine causing swelling. HOME MEDICATIONS: Eliquis 5 mg twice daily last reported taking on Monday, aspirin 81 mg daily, azathioprine 50 mg twice a day, Coreg 3.125 twice a day, Nexium 40 mg daily, Remicade 100 mg IV, Cozaar 25 mg daily, Pravachol 80 mg every night, tamsulosin 0.5 daily and vitamin B12. SOCIAL HISTORY: Quit tobacco use approximately 40 years ago. Reports occasional alcohol use. He lives with his grandson. FAMILY HISTORY: Per record show father with myocardial infarction at 62, mother had stroke at 70, myocardial infarction in brother at 80, myocardial infarction another brother at 64, another brother at 64 had cancer, sister of lupus at 67 and had 3 more siblings. REVIEW OF SYSTEMS: Per history of present illness. PHYSICAL EXAMINATION: Vital Signs: Temperature 98.2 degrees, pulse 65, respirations 12, blood pressure 87/56. General: Patient is awake, alert, no acute distress. He is sitting up in a chair and has just walked with physical therapy. HEENT: Normocephalic, atraumatic. Pupils equal, round, reactive to light. Cardiovascular: Regular rate and rhythm. He has a pacemaker. Pulmonary: With some coarse breath sounds. GI: Soft, positive bowel sounds. Nontender. Extremities: No lower extremity edema noted. Neurological: Cranial nerves 2-12 grossly intact. DIAGNOSTIC RESULTS: Laboratory. WBC on admission was 21.70, today 8.80, hemoglobin 9.2, hematocrit 26.7, on admission hemoglobin and hematocrit was 14.3 and 41.7, MCV 97.4, platelets 214,000. Chemistry sodium 138, potassium 3.2, chloride 109, CO2 20, BUN 63, creatinine 2.1, glucose 93, total bilirubin 0.59, AST 15, ALT 8, alkaline phosphatase 36. IMAGING FINDINGS: Showed pulmonary edema, constipation, ileus versus partial small bowel obstruction with gastric distention and reflux. ASSESSMENT AND PLAN: 1. Nausea, vomiting with hematemesis, hemoglobin and hematocrit have dropped. Will continue to monitor for any active bleeding. Transfuse packed red blood cells as needed. 2. Ileus versus small-bowel obstruction. The patient has had a bowel movement since admission. Will continue to monitor. 3. Acute kidney injury has improved some today. Continue IV fluids. Patient has had his Eliquis and aspirin held, will continue to follow. He may need EGD for further evaluation. Further plans will be made as needed. I have discussed this case with Dr. Maravilla. Dictated by TRUNG Bundy for Krzysztof Maravilla MD cc: TRUNG Coburn MD
--- NOTE | 2019-02-23 18:57 | PROGRESS NOTE ---
DATE: 02/23/2019 Today Mr. Rosen refers to be doing fairly okay. Denies any more nauseation or vomiting. He has had 2 bowel movements documented today. OBJECTIVE: Vital signs: Blood pressure is 100/53, pulse is 60, respiration is 18, temperature 97.8 degrees. General: Mr. Rosen 78-year-old male he was in bed, no distress. Mucosa is pink and moist. Anicteric. Acyanotic. Neck: Supple. Chest: Clear to auscultation. No crepitation, no rhonchi. Cardiovascular: Regular rate and rhythm. Abdomen: Soft, minimally tender in the epigastrium. Bowel sounds present. Extremities: No pedal edema. FILAMENT SHAPER: Patient is awake, alert and oriented. LABORATORY DATA: WBC is 8.80, hemoglobin is 9.2, platelet count of 214,000. Chemistry is also reviewed, potassium is 3.2, chloride is 109, bicarb is 20, creatinine is down to 2.1. Gastric occult blood test was positive. A chest x-ray on presentation showed no acute pulmonary abnormality. A KUB showed constipation. CT scan of the abdomen and pelvis showed pulmonary edema, constipation, ileus versus partial small- bowel obstruction. ASSESSMENT: 1. Gastrointestinal bleed, hemoglobin and hematocrit has dropped some but think part of it could be all dilutional. We going to continue to monitor hemoglobin and hematocrit. Patient has already been group and crossmatch and GI has been consulted. 2. Acute kidney injury. Will continue with adequate fluid resuscitation. Creatinine is on downward trend. 3. Hypokalemia. Will replace this. 4. Constipation. Will continue with bowel regimen. 5. Ileus versus partial obstruction. Patient has been having bowel movement, 2 has been documented today, will continue to keep him NPO for today. If he continues to improve we might try him on some clear liquid tomorrow pending further recommendations from GI. cc: Peter Harris MD
[2019-02-24] MEDS: PROTONIX 80 MG in NS 80 ML IV SCH ×5 (01:49→23:06)
[2019-02-24] MEDS: CARAFATE LIQUID PO SCH ×4 (03:15→21:08)
[2019-02-24] MEDS: NS 1,000 ML IV SCH ×4 (03:16→18:53)
[2019-02-24] MEDS: FLOMAX PO SCH (08:30)
--- NOTE | 2019-02-24 12:14 | GASTROENTEROLOGY PROGRESS NOTE ---
DATE: 02/24/2019 SUBJECTIVE: The patient is resting comfortably. He has been able to tolerate ice chips and sips, has not had any episodes of nausea or vomiting. He did have a small bowel movement. He denies any abdominal pain or abdominal cramps. He does not have an appetite yet, but wants to have something to drink to get his mouth moistened. OBJECTIVE: Vital Signs: Temperature is 97.8 degrees, pulse 61 per minute, breathing at 18, blood pressure was 95/55. Abdomen: Full. It is soft. It is nontender. I could not appreciate any mass or visceromegaly. Bowel sounds are audible. LABORATORY DATA: Reviewed, which showed hemoglobin from yesterday of 9.2, hematocrit yesterday was 26.7. Today's labs are still pending. IMPRESSION: Anemia, most likely possible chronic gastrointestinal bleed. He may have dropped his hemoglobin and hematocrit more because of hemodilution when he came in and was hydrated. At this point, I would start him on clear liquid diet, and scheduled him for esophagogastroduodenoscopy tomorrow while we wait for his hemoglobin and hematocrit level today. Depending on the level, will decide if he needs to have blood transfusion or not. In the meantime, continue proton pump inhibitor and continue other treatment as per the team. cc: Krzysztof Maravilla MD
[2019-02-24 12:26] LABS: HEMATOCRIT 26.9 % (42.0-52.0); HEMOGLOBIN 8.8 g/dL (14.0-18.0)
--- NOTE | 2019-02-24 15:35 | PROGRESS NOTE ---
DATE: 02/24/2019 SUBJECTIVE: Patient resting comfortable on bed. OBJECTIVE: Vital signs: Temperature 97.9 degrees, pulse 56, respiratory 18, blood pressure 95/55, oxygen saturation 98%. HEENT: Atraumatic, normocephalic. Cardiovascular: S1, S2. Respiratory: Has evidence of good entry bilaterally. Abdomen: Soft, nontender. No masses felt. Extremities: No evidence of significant edema. Central nervous system: No obvious focal deficit noted. LABS: Hematocrit is 26.9. ASSESSMENT AND PLAN: 1. Gastrointestinal bleed. Follow up on hemoglobin, hematocrit, transfuse PRBCs as needed. Maintain patient on proton pump inhibitor. GI following. 2. Acute kidney injury. Continue intravenous fluids, nephrology consulted. 3. Hypokalemia, replace if repeat levels still low. 4. Ileus versus partial small bowel obstruction. Maintain patient n.p.o., consult with surgery. cc: Slick Darling MD
[2019-02-24 16:49] LABS: AGAP 7; BUN 23 mg/dL (8-22); CALCIUM 8.2 mg/dL (8.8-10.2); CHLORIDE 112 mmol/L (98-107); COSMO 283; CREATININE 1.1 mg/dL (0.7-1.2); ESTIMATED GFR > 60; GLUCOSE 95 mg/dL (70-104); POTASSIUM 2.9 mmol/L (3.5-5.1); SODIUM 140 mmol/L (136-145); TCO2 21 mmol/L (25-35)
[2019-02-24] MEDS ORDERED: KLOR-CON PO ONE (20:16)
[2019-02-25] MEDS: CARAFATE LIQUID PO SCH ×4 (04:48→20:53)
[2019-02-25 05:29] LABS: BASO# 0.01 X1000 (0.0-0.2); BASO% 0.2 % (0.0-0.8); EOS# 0.16 X1000 (0.0-0.7); EOS% 3.1 % (0.0-10.0); HEMATOCRIT 24.4 % (42.0-52.0); IMM GRAN# 0.03 X1000 (0.0-0.04); IMM GRAN% 0.6 % (0.0-0.5); LYMPH# 0.95 X1000 (1.2-3.4); LYMPH% 18.4 % (20.5-51.1); MCH 32.8 PG (27-31); MCHC 32.8 g/dL (33-37); MONO# 0.57 X1000 (0.11-0.59); MPV 9.5 FL (7.4-10.4); NEUT# 3.45 X1000 (1.4-6.5); NEUT% 66.7 % (42.2-75.2); PLT 157 X1000 (130-400); RBC 2.44 XMIL (4.7-6.1); RDW 12.6 % (11.5-14.5); WBC 5.17 X1000 (4.8-10.8)
[2019-02-25 05:50] LABS: AGAP 5; BUN 15 mg/dL (8-22); CALCIUM 7.6 mg/dL (8.8-10.2); CHLORIDE 112 mmol/L (98-107); COSMO 278; ESTIMATED GFR > 60; GLUCOSE 86 mg/dL (70-104); POTASSIUM 2.9 mmol/L (3.5-5.1); SODIUM 139 mmol/L (136-145); TCO2 22 mmol/L (25-35)
[2019-02-25] MEDS: POTASSIUM CHLORIDE 20 MEQ/SWI 20 MEQ/100 ML IVPB IV SCH ×4 (06:11→18:34)
[2019-02-25] MEDS: NS 1,000 ML IV SCH ×3 (06:13→19:10)
[2019-02-25] MEDS: FLOMAX PO SCH (09:17)
--- NOTE | 2019-02-25 09:38 | NEPHROLOGY CONSULTATION ---
DATE: 02/25/2019 REASON FOR CONSULTATION: Acute kidney injury. HISTORY OF PRESENT ILLNESS: Mr. Rosen is a 78-year-old white male who came to the hospital because of nausea and vomiting and vomiting blood. He has a history of heart disease, pacemaker, rheumatoid arthritis. He has been improve since he has been in the hospital. He has not require blood transfusion. His hemoglobin has dropped from 14 down to 8. In this context, his creatinine was elevated at 3.9 on presentation and is down to 1.0 this morning. No change in his urine character. No blood in the urine, etc. PAST MEDICAL HISTORY: As above. HOME MEDICATIONS: 1. Pravastatin. 2. Azathioprine. 3. Tamsulosin. 4. Esomeprazole. 5. Remicade. 6. Carvedilol. 7. Aspirin. 8. Losartan. 9. Apixaban. ALLERGIES: Morphine. SOCIAL HISTORY: He is and lives with his . FAMILY HISTORY: Noncontributory. REVIEW OF SYSTEMS: Noncontributory. PHYSICAL EXAMINATION: Vital Signs: Blood pressure 95/48, heart rate 54, respirations 13, afebrile. General: No acute distress. Skin: Warm and dry. Conjunctivae are pink. Neck: Neck veins are not distended. Heart: Regular. No gallops. Lungs: Equal. No crackles or wheezes. Abdomen: Soft, nontender. Bowel sounds present. Extremities: No edema, clubbing, or cyanosis. IMPRESSION: Acute kidney injury. Hemodynamic form of acute renal failure with volume contraction, and impaired glomerular autoregulation secondary to angiotensin receptor chucky therapy. This has resolved entirely. His ARB has been appropriately withheld and he has received IV fluids. His potassium is being replaced. No changes are required from my perspective. I have nothing further to add so I will sign off today, but if I can be of further assistance, please do not hesitate to call. cc: Jacobo Felder MD
[2019-02-25] MEDS ORDERED: DIPRIVAN 1% ONE (12:52)
[2019-02-25] MEDS ORDERED: XYLOCAINE-MPF 2% ONE (12:52)
[2019-02-25] MEDS ORDERED: FENTANYL ONE (12:54)
[2019-02-25] MEDS ORDERED: EPHEDRINE ONE (13:46)
--- NOTE | 2019-02-25 15:43 | PROGRESS NOTE ---
DATE: 02/25/2019 SUBJECTIVE: The patient resting comfortably in bed. OBJECTIVE: Vital Signs: Temperature 97.7 degrees, pulse 61, respirations 16, and blood pressure is 111/55. HEENT: Patient is atraumatic, normocephalic. Cardiovascular: S1, S2. Respiratory: There is evidence of good air entry bilaterally. Abdomen: Soft, nontender. No masses felt. Extremities: No evidence of edema. Central nervous system: No obvious focal deficit noted. LABORATORY: WBC is 5.17, hematocrit 24.4 with a platelet count of 127,000. Sodium is 139, potassium 3.4, chloride is 112. Bicarb is 22, BUN is 15 and creatinine is 1.0. Calcium level is 7.6. ASSESSMENT AND PLAN: 1. Gastrointestinal bleed. Continue proton pump inhibitor. Follow up on hemoglobin and hematocrit. Transfuse packed red blood cells if needed. Gastroenterology following. 2. Acute kidney injury. Resolved. 3. Hypokalemia. Replace potassium. Check magnesium level. 4. Ileus versus partial small bowel obstruction. Surgery consulted. 5. Deep vein thrombosis prophylaxis. Sequential compression devices. 6. Gastrointestinal prophylaxis. The patient is on PPI. cc: Slick Darling MD
[2019-02-25] MEDS: PROTONIX IV SCH (16:24)
--- NOTE | 2019-02-25 17:41 | OPERATIVE NOTE ---
PROCEDURE DATE: 02/25/2019 PROCEDURE: Esophagogastroduodenoscopy and biopsy PREOPERATIVE DIAGNOSES: 1. Acute gastrointestinal bleed. 2. Anemia secondary to gastrointestinal bleed. POSTOPERATIVE DIAGNOSES: 1. Esophagitis. 2. Ulcer, cardia, biopsied. MEDICATION USED: MAC as per Anesthesia. SCOPE USED: Pentax gastroscope. HISTORY: This is a 78-year-old white male admitted to hospital with hematemesis and was found to have anemia. His hemoglobin and hematocrit have dropped. EGD was done for diagnostic as well as therapeutic purposes. DESCRIPTION OF PROCEDURE: Informed consent was obtained from the patient. The procedure, risks, benefits, and alternatives were explained in layman's terms. Risks of, but not limited to, bleeding, perforation, aspiration, and pneumonia were explained. He understood, and all of his pertinent questions were answered. Patient was brought to the endoscopy unit and was premedicated as per Anesthesia. After adequate sedation, while he was lying in left lateral position, the gastroscope was introduced into the posterior pharynx and advanced under direct vision into the esophagus. Esophagus in the upper part was normal. However, the middle and distal esophagus showed evidence of significant esophagitis, but it was evident only by hyperemia and a snake skin sort of pattern in the esophagus. Mild erosions were seen in the distal esophagus also. Multiple biopsies were obtained from the affected part. He did not have any evidence of varices. The GE junction was noted about 39 cm from the incisor. Right at the GE junction extending into the cardia, there was a deep ulcer with whitish exudate adherent. There was some heaping or thickening of the mucosa around the edges. Again, this ulcer was no noted at the cardia. Using cold biopsy forceps, multiple biopsies were obtained from the ulcer edge. The scope was then passed through into the stomach. Stomach was examined both in straight and retroflexed views, which revealed normal fundus, body, and antrum. Scope was then passed through the normal pylorus, into the duodenal bulb, and then to the second portion of duodenum which appeared to be normal. I did not see any evidence of active bleeding or stigmata of recent bleed. The scope was removed. Patient tolerated procedure well with no complications noted. Patient was then transferred to the recovery area in a stable condition. IMPRESSION: 1. Ulcer, cardia, biopsied. 2. Esophagitis, biopsied. RECOMMENDATION: 1. Continue proton pump inhibitor, but switch it to p.o. 2. Continue antireflux measures. 3. Follow up the biopsy report, and depending on the pathology, further plans will be made. In the meantime check hemoglobin and hematocrit, transfuse if necessary. We will follow and I will follow him at the office after discharge. cc: Krzysztof Maravilla MD
[2019-02-25] MEDS ORDERED: CARAFATE LIQUID PO SCH (21:00)
[2019-02-26 05:56] LABS: BASO# 0.01 X1000 (0.0-0.2); BASO% 0.2 % (0.0-0.8); EOS# 0.14 X1000 (0.0-0.7); EOS% 2.6 % (0.0-10.0); HEMATOCRIT 24.9 % (42.0-52.0); HEMOGLOBIN 8.2 g/dL (14.0-18.0); LYMPH# 0.95 X1000 (1.2-3.4); LYMPH% 17.3 % (20.5-51.1); MCH 32.7 PG (27-31); MCHC 32.9 g/dL (33-37); MCV 99.2 FL (81-99); MONO# 0.37 X1000 (0.11-0.59); MONO% 6.7 % (1.7-9.3); MPV 9.4 FL (7.4-10.4); NEUT# 4.02 X1000 (1.4-6.5); NEUT% 73.2 % (42.2-75.2); PLT 173 X1000 (130-400); RBC 2.51 XMIL (4.7-6.1); RDW 12.8 % (11.5-14.5); WBC 5.49 X1000 (4.8-10.8)
[2019-02-26] MEDS: PROTONIX IV SCH (06:18)
[2019-02-26] MEDS: NS 1,000 ML IV SCH ×2 (06:18→17:06)
[2019-02-26] MEDS: CARAFATE LIQUID PO SCH ×4 (06:27→20:05)
[2019-02-26 06:30] LABS: AGAP 4; ALB/GLOB RATIO 0.7; ALBUMIN 2.1 g/dL (3.5-5.0); ALKALINE PHOSPHATASE 33 U/L (32-122); BUN 8 mg/dL (8-22); CALCIUM 7.6 mg/dL (8.8-10.2); CHLORIDE 114 mmol/L (98-107); COSMO 277; CREATININE 0.8 mg/dL (0.7-1.2); ESTIMATED GFR > 60; GLUCOSE 84 mg/dL (70-104); GOT 14 U/L (10-34); GPT 8 U/L (10-44); POTASSIUM 3.2 mmol/L (3.5-5.1); SODIUM 140 mmol/L (136-145); TCO2 22 mmol/L (25-35); TOTAL BILIRUBIN 0.45 mg/dL (0.20-1.00); TOTAL PROTEIN 5.1 g/dL (6.3-8.3)
[2019-02-26] MEDS: FLOMAX PO SCH (09:15)
--- NOTE | 2019-02-26 14:26 | PROGRESS NOTE ---
DATE: 02/26/2019 SUBJECTIVE: This morning Mr. Rosen refers to be doing fairly okay. I had call early on from his nurse that Mr. Rosen was still on clear liquid and was tolerating so I ordered to advance his diet to GI soft. When I came to see him this afternoon, he was tolerating his diet without any problem. OBJECTIVE: Vital signs: Blood pressure is 118/70, pulse is 66, respirations 16, temperature 98.6 degrees. On general exam, Mr. Rosen is a 78-year-old male. He was sitting up in the bed. He did have about 3 family members at the bedside with him. He was also eating his lunch. His neck was supple. Chest was clear to auscultation, no crepitations, no rhonchi. Cardiovascular: Regular rate and rhythm. Gastrointestinal: Abdomen was soft. Extremities: No pedal edema. Central Nervous System: Patient is awake, alert, oriented. LABORATORY DATA: Has been reviewed. WBC is 5.49, hemoglobin is 8.2, platelet count of 173,000. Chemistry is also reviewed, potassium is 3.2, rest of chemistry is completely normal. HOME CURRENT MEDICATIONS: Have all been reviewed. PROCEDURE REPORT: The surgery report has also been reviewed. There was an ulcer at the cardia which had heaped edges, status post biopsy. There was also esophagitis. ASSESSMENT: 1. Gastrointestinal bleed with presenting anemia. Patient is status post EGD. Findings have been reviewed. 2. Gastric cardia ulcer with esophagitis status post biopsy. We will continue with the PPI. 3. Ileus, improved. 4. Acute kidney injury, resolved. cc: Peter Harris MD [facility]
--- NOTE | 2019-02-26 14:32 | GASTROENTEROLOGY PROGRESS NOTE ---
DATE: 02/26/2019 SUBJECTIVE: Patient denies complaints. He is tolerating a liquid diet. His son is at the bedside and states he has had a poor appetite for a while. Patient had an EGD on 02/25/2019 for GI bleeding and anemia. Findings showed esophagitis and an ulcer in the cardia. Biopsies were done. Biopsy results are pending. Patient is currently receiving PPI and Carafate. He currently denies complaints. OBJECTIVE: Vital Signs: Temperature 98.6 degrees, pulse 66, respirations 16, blood pressure 118/70. Generally: Awake, alert, no acute distress. LABORATORY: Hematology: WBC 5.49, hemoglobin 8.2, hematocrit 24.9, MCV 99.2. Chemistry: Sodium 140, potassium 3.2 chloride 114, CO2 22, glucose 84. ASSESSMENT AND PLAN: 1. Recent gastrointestinal bleed. 2. Esophagogastroduodenoscopy showing esophagitis and ulcer in the cardia. Continue proton pump inhibitor and Carafate. 3. Anemia. Continue to monitor hemoglobin and hematocrit and for further active bleeding. Would recommend restarting his low-dose aspirin but hold Eliquis for 1 week. 4. Recommend patient follow up with us as an outpatient. 5. Further plans to be made according to his progress. Biopsy is pending. Will follow up on results. 6. I have discussed this case with Dr. Maravilla. We will allow advancement of his diet to a GI soft diet which is already been ordered. Dictated by TRUNG Bundy for Krzysztof Maravilla MD cc: TRUNG Coburn MD
[2019-02-26] MEDS: PROTONIX PO SCH (20:05)
[2019-02-27] MEDS: NS 1,000 ML IV SCH (06:18)
[2019-02-27] MEDS: CARAFATE LIQUID PO SCH ×5 (06:18→20:25)
[2019-02-27 07:49] LABS: BASO# 0.01 X1000 (0.0-0.2); BASO% 0.2 % (0.0-0.8); EOS# 0.18 X1000 (0.0-0.7); EOS% 3.1 % (0.0-10.0); HEMATOCRIT 23.6 % (42.0-52.0); HEMOGLOBIN 7.7 g/dL (14.0-18.0); IMM GRAN# 0.02 X1000 (0.0-0.04); IMM GRAN% 0.3 % (0.0-0.5); LYMPH# 1.08 X1000 (1.2-3.4); LYMPH% 18.3 % (20.5-51.1); MCH 32.2 PG (27-31); MCHC 32.6 g/dL (33-37); MCV 98.7 FL (81-99); MONO# 0.52 X1000 (0.11-0.59); MONO% 8.8 % (1.7-9.3); MPV 9.4 FL (7.4-10.4); NEUT# 4.09 X1000 (1.4-6.5); NEUT% 69.3 % (42.2-75.2); PLT 176 X1000 (130-400); RBC 2.39 XMIL (4.7-6.1); RDW 12.5 % (11.5-14.5)
[2019-02-27 08:06] LABS: AGAP 4; BUN 6 mg/dL (8-22); CALCIUM 7.3 mg/dL (8.8-10.2); CHLORIDE 111 mmol/L (98-107); COSMO 275; ESTIMATED GFR > 60; GLUCOSE 100 mg/dL (70-104); POTASSIUM 2.7 mmol/L (3.5-5.1); SODIUM 139 mmol/L (136-145); TCO2 24 mmol/L (25-35)
[2019-02-27] MEDS ORDERED: MAGNESIUM SULFATE 2 GM/S.W.I. 2 GM/50 ML IVPB IV ONE (08:40)
[2019-02-27] MEDS: ASPIRIN PO SCH ×2 (09:43→12:41)
[2019-02-27] MEDS: PROTONIX PO SCH ×3 (09:45→20:25)
[2019-02-27] MEDS: FLOMAX PO SCH ×3 (09:45→20:25)
[2019-02-27] MEDS: POTASSIUM CHLORIDE 20 MEQ/SWI 20 MEQ/100 ML IVPB IV SCH ×2 (11:46→16:31)
[2019-02-27] MEDS: DIFLUCAN PO SCH (13:36)
--- NOTE | 2019-02-27 14:21 | PROGRESS NOTE ---
DATE: 02/27/2019 SUBJECTIVE: This morning Mr. Rosen refers to be doing fairly okay. was at the bedside at the time of the encounter, and there was another male family member. OBJECTIVE: Vital Signs: Blood pressure 99/57, pulses 64, respirations 18, and temperature 97.9 degrees. General: Mr. Rosen is a 78-year-old gentleman. He is in bed, and was not in any cardiopulmonary distress. Mucosa is pink and moist. Anicteric. Acyanotic. Neck: Supple. Chest: Clear to auscultation. No crepitations. No rhonchi. Cardiovascular: Regular rate and rhythm. No murmurs, no rubs, no gallops. Win[place] beat is at 5th intercostal space midclavicular line. Gastroenterology: Soft, nontender. Bowel sounds present. Extremities: No pedal edema. SHIP RIGGER: Patient is awake, alert, and oriented. No focal neurological deficit. LABORATORY DATA: WBC is 5.90, hemoglobin is 7.7, and platelet count of 176,000. Chemistry is also reviewed. Potassium is 2.7, which will be replaced. His pathology report shows active gastritis with ulceration and abundant Christine fungal elements. The esophageal biopsy showed reactive squamous mucosa with patchy chronic inflammation. ASSESSMENT: 1. Anemia secondary to GI bleed, stable. The patient did not need any blood transfusion. Hemoglobin and hematocrit seems to be fairly stable. We will continue to monitor. 2. Gastric cardia ulcer. The pathology report also shows Christine elements in the sample. We will start the patient on fluconazole and continue with the PPI. 3. Esophagitis with reactive squamous mucosa on the pathology report. The patient is on PPI and Carafate. GI is also on board. 4. Acute kidney injury resolved. 5. Hypokalemia. We will continue to replace. 6. Generalized weakness and deconditioning. Patient is getting physical therapy and, there is a plan to get him to rehab hopefully tomorrow. cc: Peter Harris MD
--- NOTE | 2019-02-27 14:37 | GASTROENTEROLOGY PROGRESS NOTE ---
DATE: 02/27/2019 SUBJECTIVE: Patient was resting. He aroused easily. His son was at the bedside. He denied complaints today. He feels better. He has tolerated a GI soft diet. OBJECTIVE: Vital Signs: Temperature 97.9 degrees, pulse 64, respirations 18, blood pressure 99/59. General: The patient aroused easily, in no acute distress. LABORATORY: Hematology: WBC 5.90, hemoglobin 7.7, hematocrit 23.6, MCV 98.7, platelet 176. Chemistry: Sodium 139, potassium 2.7, chloride 111, CO2 24. BUN 6, creatinine 1.1, glucose 100, calcium 7.3. IMAGING: EGD on 02/25/2019 showed esophagitis and ulcer in the cardia. Biopsy showed active gastritis with ulceration and abundant candidal fungal elements and patchy chronic inflammation in the esophagus. ASSESSMENT AND PLAN: 1. Recent gastrointestinal bleeding with esophagogastroduodenoscopy showing ulcer in the cardia and esophagitis. Continue proton pump inhibitor. Would hold Eliquis for 1 week. Can restart low-dose aspirin. Pathology showing Christine elements in the stomach. Patient has already been started on Diflucan by hospitalist. 2. Gastric cardia ulcer with esophagitis. Biopsy showing Christine in the stomach. Continue proton pump inhibitor. Start Diflucan. Patient will need repeat esophagogastroduodenoscopy in 3 to 4 months to confirm healing of his ulcer. Recommend he follow in the office with Dr. Maravilla in 2 to 3 weeks as an outpatient. We will continue to follow during his hospital course. 3. Anemia. His hemoglobin and hematocrit are slightly lower today. There is no evidence of active gastrointestinal bleeding. Will continue to follow. I have discussed this case with Dr. Maravilla. Dictated by TRUNG Bundy for Krzysztof Maravilla MD cc: TRUNG Coburn MD
[2019-02-28 07:41] LABS: BASO# 0.01 X1000 (0.0-0.2); BASO% 0.2 % (0.0-0.8); EOS# 0.22 X1000 (0.0-0.7); HEMATOCRIT 24.2 % (42.0-52.0); IMM GRAN# 0.02 X1000 (0.0-0.04); IMM GRAN% 0.4 % (0.0-0.5); LYMPH# 1.12 X1000 (1.2-3.4); LYMPH% 20.5 % (20.5-51.1); MCH 32.3 PG (27-31); MCHC 33.1 g/dL (33-37); MCV 97.6 FL (81-99); MONO# 0.47 X1000 (0.11-0.59); MONO% 8.6 % (1.7-9.3); NEUT# 3.62 X1000 (1.4-6.5); NEUT% 66.3 % (42.2-75.2); PLT 179 X1000 (130-400); RBC 2.48 XMIL (4.7-6.1); RDW 12.7 % (11.5-14.5); WBC 5.46 X1000 (4.8-10.8)
[2019-02-28 07:58] LABS: AGAP 5; BUN 6 mg/dL (8-22); CALCIUM 7.5 mg/dL (8.8-10.2); CHLORIDE 111 mmol/L (98-107); COSMO 277; CREATININE 0.9 mg/dL (0.7-1.2); ESTIMATED GFR > 60; GLUCOSE 93 mg/dL (70-104); POTASSIUM 2.8 mmol/L (3.5-5.1); SODIUM 140 mmol/L (136-145); TCO2 24 mmol/L (25-35)
[2019-02-28] MEDS ORDERED: KLOR-CON PO ONE ×2 (08:55→13:57)
--- NOTE | 2019-02-28 12:40 | DISCHARGE SUMMARY ---
ADMISSION DATE: 02/22/2019 DISCHARGE DATE: 02/28/2019 ADMISSION DIAGNOSES: 1. Acute upper gastrointestinal bleed. 2. Acute kidney injury. 3. Leukocytosis. 4. Hypertension. 5. Benign prostatic hypertrophy (BPH). 6. Coronary artery disease (CAD). 7. Atrial fibrillation, on Eliquis. 8. Dysphagia. DISCHARGE DIAGNOSES: 1. Acute upper gastrointestinal bleed. 2. Acute kidney injury, resolved. 3. Leukocytosis. 4. Hypertension. 5. Benign prostatic hypertrophy (BPH). 6. Coronary artery disease (CAD). 7. Atrial fibrillation, on Eliquis. 8. Dysphagia. CONSULTATIONS: Dr. Maravilla with GI. Dr. Felder with Nephrology. DIAGNOSTIC PROCEDURES AND FINDINGS: Chest x-ray 02/22/2019: No acute cardiopulmonary abnormality. EKG 02/22/2019: V-paced rhythm. Abdomen x-ray 02/22/2019: Constipation. Abdomen and pelvis CT 02/22/2019: Pulmonary edema, constipation, ileus versus partial small bowel obstruction. OPERATIVE PROCEDURES: EGD 02/25/2019: Esophagitis, cardia ulcer biopsied. Biopsy results of EGD: Active gastritis with ulceration and abundant candidal fungal elements and reactive squamous mucosa with patchy chronic inflammation of the esophagus. HOSPITAL COURSE: Mr. Rosen is a 78-year-old male with a history of atrial fibrillation, on anticoagulation, CAD, BPH, hypertension and chronic pain, who presented with epigastric pain and odynophagia, as well as emesis with coffee-grounds appearance. He came to the ER. Emesis was evaluated as positive for blood, he was slightly hypotensive as well as tachycardic. His Eliquis was stopped and he was admitted. Also noted was an acute kidney injury. An abdomen and pelvis CT was also ordered which showed ileus versus SBO. GI was consulted and he had endoscopy on 02/25/2019 which showed a gastric ulcer in the cardia. This was biopsied and did show esophagitis and gastritis but also did have multiple fungal elements. He was started on antifungals appropriately. With regard to his acute kidney injury, we consulted Dr. Felder, who felt that the acute kidney injury was prerenal in nature compounded by use of ARB. The patient's creatinine did improve significantly to baseline and ultimately resolved. He did have anemia secondary to acute blood loss but did not require any blood transfusion. The patient is hemodynamically stable and feeling much better and it was felt that he needed rehab for overall weakness. He will be discharged to [facility] in [place]. DISCHARGE MEDICATIONS: 1. Pravastatin 80 mg at bedtime. 2. Azathioprine 50 mg b.i.d. 3. Vitamin B12 one daily. 4. Flomax 0.4 mg daily. 5. Remicade 100 IV as directed by PCP. 6. Coreg 3.125 mg p.o. b.i.d. 7. Cozaar 25 mg daily. 8. Carafate 1 g p.o. four times a day. 9. Diflucan 200 mg p.o. daily for seven days. 10.Protonix 40 mg p.o. b.i.d. 11.Aspirin 81 mg daily. 12.Eliquis 5 mg b.i.d. DISCHARGE LABORATORIES: White blood cell count 5.46. Hemoglobin 8. Hematocrit 24.2. Platelet count 179,000. Sodium 140. Potassium 2.8 (replaced). Chloride 111. CO2 24. Anion gap 5. BUN 6. Creatinine 0.6. Glucose 93. Calcium 7.5. DISCHARGE DIET: Heart Healthy. DISCHARGE ACTIVITY: Resume activity as tolerated. DISPOSITION/OTHER DISCHARGE INSTRUCTIONS: The patient is discharged to [facility] in [place]. He is to follow up with Dr. Maravilla as directed, follow up with his PCP, Dr. Moore, within the next four to six weeks or sooner if needed. He is to return to the ER, call 911 for worsening complaints or concerns. All discharge questions answered. DISCHARGE TIME: Greater than 35 minutes. Dictated by TRUNG Villegas for Peter Harris MD cc: TRUNG Villegas MD Khurshid Yousuf, MD Dr. Gill I have seen and examined Mr Rosen today. He is clinically stable for discharge to Rehab. I have reviewed and reconciled his home medications. I agree with the above discharge summary. [facility]
[2019-02-28] MEDS: CARAFATE LIQUID PO SCH ×3 (12:54→20:11)
[2019-02-28] MEDS: FLOMAX PO SCH (12:55)
[2019-02-28] MEDS: PROTONIX PO SCH (12:56)
[2019-02-28] MEDS: ASPIRIN PO SCH (12:59)
[2019-02-28] MEDS: DIFLUCAN PO SCH (12:59)
[2019-02-28 17:19] VITALS: BP 122/7
== END 2019-02-28 18:50 | DRG 391 ==
LOC: P.ED 13:24 → SUATTDRO 17:27 → 3S 17:27 → 3N 02-27 04:50
PROVIDERS: ATTEND Internal Medicine
CPT/HCPCS: 51702; 51798; 71010; 71045; 74019; 74020; 74176; 80048; 80053; 81001; 82271; 82550; 82570; 83605; 83735; 84132; 84300; 84484; 84540; 85014; 85018; 85025; 85610; 85730; 86850; 86900; 86901; 88305; 88312; 88313; 93005; 94761; 94799; 96361; 96365; 96366; 97110; 97116; 97161; 97530; 99285; A9270; C9113; J3010; J3475; J3480; J7030; S0164

== ENCOUNTER 2019-06-18 13:50 | Inpatient (IN) ==
[2019-06-18] MEDS ORDERED: ZOFRAN IV PRN (15:01)
--- NOTE | 2019-06-18 15:46 | Diag Imaging Result Doc PS360 ---
EXAM: CHEST-PORTABLE HISTORY: weakness TECHNIQUE: Portable chest COMPARISON: 06/03/2019 FINDINGS: The lungs are well expanded. There are sutures in the right apex as well as a left-sided pacemaker. No cardiomegaly. No pulmonary edema. No pneumonia. No pleural effusions identified. IMPRESSION: Stable chest. Electronically signed by Xiang Barnes 06/18/2019 3:44 PM
[2019-06-18 16:09] LABS: BASO# 0.02 X1000 (0.0-0.2); BASO% 0.2 % (0.0-0.8); EOS# 0.08 X1000 (0.0-0.7); EOS% 0.9 % (0.0-10.0); HEMATOCRIT 34.5 % (42.0-52.0); HEMOGLOBIN 11.5 g/dL (14.0-18.0); LYMPH# 0.98 X1000 (1.2-3.4); MCH 32.4 PG (27-31); MCHC 33.3 g/dL (33-37); MCV 97.2 FL (81-99); MONO# 0.95 X1000 (0.11-0.59); MONO% 10.6 % (1.7-9.3); MPV 9.8 FL (7.4-10.4); NEUT# 6.91 X1000 (1.4-6.5); NEUT% 77.3 % (42.2-75.2); PLT 157 X1000 (130-400); RBC 3.55 XMIL (4.7-6.1); RDW 14.1 % (11.5-14.5); WBC 8.94 X1000 (4.8-10.8)
--- NOTE | 2019-06-18 16:17 | Diag Imaging Result Doc PS360 ---
EXAM: KUB ABDOMEN HISTORY: abd pain TECHNIQUE: Abdomen single view COMPARISON: 02/22/2019 FINDINGS: There is stool throughout the colon. The bowel loops are not dilated. No organomegaly. There are pelvic phleboliths. Prominent atherosclerosis. IMPRESSION: 1.Constipation 2.Prominent atherosclerosis Electronically signed by Xiang Barnes 06/18/2019 4:15 PM
[2019-06-18 16:21] LABS: INR 1.57; PROTIME 19.1 Seconds (11.0-16.0)
[2019-06-18 16:22] LABS: PTT 41.1 Seconds (22.3-41.8)
[2019-06-18 16:25] LABS: AGAP 11; BUN 15 mg/dL (8-22); CHLORIDE 99 mmol/L (98-107); COSMO 269; GLUCOSE 102 mg/dL (70-104); POTASSIUM 3.2 mmol/L (3.5-5.1); SODIUM 134 mmol/L (136-145); TCO2 24 mmol/L (25-35)
[2019-06-18 16:26] LABS: ALB/GLOB RATIO 0.9; ALKALINE PHOSPHATASE 69 U/L (32-122); CALCIUM 9.4 mg/dL (8.8-10.2); CREATININE 0.9 mg/dL (0.7-1.2); ESTIMATED GFR > 60; GOT 12 U/L (10-34); GPT 9 U/L (10-44); MAGNESIUM 2.1 mg/dL (1.5-2.7); TOTAL BILIRUBIN 0.98 mg/dL (0.20-1.00); TOTAL PROTEIN 6.2 g/dL (6.3-8.3)
[2019-06-18] MEDS ORDERED: SODIUM CHLORIDE 0.9% INJ SCH (16:30)
--- NOTE | 2019-06-18 17:02 | HISTORY AND PHYSICAL ---
CHIEF COMPLAINT: Direct admit from Dr. Moore's office for weakness. HISTORY OF PRESENT ILLNESS: Mr. Rosen is an 79-year-old male who carries a recent diagnosis of a T12 compression fracture. He is supposed to have a procedure done to place cement. He reports no appetite and weakness and a 15 pound weight loss since April, as well as black tarry stools. He has remained on Eliquis since his last GI bleed. He believes that he takes half the dose now. Also, carries a past medical history of atrial fibrillation on Eliquis with permanent pacemaker, rheumatoid arthritis, kidney cyst seen by Dr. Arrieta for that and cyst removal in the past, [place] with coronary artery disease with a stent x1, chronic lower back pain. We will do a full workup, check a chest x-ray, a KUB, check for Hemoccult stools. CBC, BMP, and continue with further treatment and evaluation. All laboratory and diagnostic data currently pending. PAST MEDICAL HISTORY: Per HPI. SURGICAL HISTORY: 1. Cardiac stent x1 in 2004. 2. Kidney cyst removal. 3. Right lower lobectomy on the lung due to chronic pneumonia and airspace disease. 4. Back surgery. 5. Bilateral eye lens implant. 6. Left heart catheterization in 2014. 7. 2017 permanent pacemaker. SOCIAL HISTORY: Quit smoking in the late 70s. No alcohol or illicit drug use. He lives at home alone. He does have a grandson that stays with him and helps him out. FAMILY HISTORY: Father with [place] at age 62. Mother stroke at the age of 70. Brother with [place] at the age of 80 and another brother at 64 with a [place] and a brother with cancer at 64 and a sister that of lupus at the age of 67. ALLERGIES: To morphine, "deadly." HOME MEDICATIONS: Have not been verified. REVIEW OF SYSTEMS: Completely negative except for those mentioned in HPI. PHYSICAL EXAMINATION: VITAL SIGNS: Temperature is 97.9 degrees, heart rate 63, respirations 16, blood pressure 96/59, O2 is 96% on room air. GENERAL: Mr. Rosen is a pleasant, frail appearing 79-year-old male who is lying in the bed in no acute distress. HEENT: Atraumatic, normocephalic. PERRL. NECK: Supple. Trachea midline. He is wearing glasses. CARDIOVASCULAR: S1, S2 appreciated. Regular rate and rhythm. No murmurs, gallops, rubs noted. No lower extremity edema. No JVD. PULMONARY: Bilateral breath sounds. No use of accessory muscles. GASTROINTESTINAL: Abdomen soft. Positive bowel sounds 4 quadrants. Nontender. EXTREMITIES: Patient moves all extremities. SKIN: Warm, dry, and intact. NEUROLOGIC: No focal deficits noted. LABORATORY DATA AND DIAGNOSTICS: Pending. ASSESSMENT AND PLAN: 1. Suspected upper GI bleed. We are currently awaiting patient's hemoglobin and hematocrit as well as Hemoccult stool. He does report dark tarry stools. He had a recent GI bleed back in February 2019. He has remained on his Eliquis. I believe a half the dose. We will stop that for now as well as any other anticoagulation. Initiate him on IV fluids, clear liquids. We will do PPI b.i.d. Consult Dr. Maravilla. 2. Weakness with reported 15-pound weight loss. Will continue to monitor his labs for any source of the weakness, we will transfuse as appropriate. 3. Hypertensive, borderline hypotensive. 4. Benign prostatic hypertrophy. 5. Coronary artery disease. 6. Atrial fibrillation on Eliquis. We will hold his Eliquis for now 7. 8. T11 or T12 compression fracture awaiting surgery. Further recommendations to follow physician evaluation, laboratory and diagnostic data. Dictated by TRUNG Spring for Isra Clemons MD cc: MD Krzysztof Nash MD I agree with most components of history, physical, assessment and plan. A separate addendum has been dictated. JALEN
[2019-06-18] MEDS: NS 1,000 ML IV SCH (17:26)
[2019-06-18] MEDS: PEPCID IV SCH (17:28)
--- NOTE | 2019-06-18 20:37 | EKG Report ---
Test Performed on : 06/18/2019 8:23:33 PM Test Reason : WEakness. Rule out cardiac ischmia Blood Pressure : / mmHG Vent. Rate : 068 BPM Atrial Rate : 068 BPM P-R Int : 116 ms QRS Dur : 136 ms QT Int : 510 ms P-R-T Axes : 041 -65 055 degrees QTc Int : 542 ms Sinus rhythm. with frequent premature ventricular complexes. Left axis deviation Nonspecific intraventricular block Possible Lateral infarct , age undetermined T wave abnormality, consider anterior ischemia Abnormal ECG When compared with ECG of 22-FEB-2019 13:35, Sinus rhythm. has replaced Electronic ventricular pacemaker Confirmed by Tanner VENEGAS, MJose Alston ([id number]) on 06/23/2019 9:29:02 PM
[2019-06-18] MEDS: VICON-C PO SCH (20:53)
[2019-06-18] MEDS: KLOR-CON PO SCH ×2 (20:54→23:45)
[2019-06-18] MEDS: IMURAN PO SCH (20:54)
[2019-06-18] MEDS: FLOMAX PO SCH (20:54)
[2019-06-18] MEDS: PRAVACHOL PO SCH (20:54)
--- NOTE | 2019-06-18 20:55 | HISTORY AND PHYSICAL ---
ADDENDUM: This is an addendum to the History and Physical dictated by the nurse practitioner. I agree with most components of the history, physical, assessment, and plan. In brief, Mr. Rosen is an 79-year-old man, with past medical history of atrial fibrillation, status post pacemaker, on Eliquis, rheumatoid arthritis, coronary artery disease and [place], requiring stent in 2004, esophageal candidiasis, upper gastrointestinal bleed in February 2019, requiring EGD, who comes in with chief complaints of progressive weakness, melena, weight loss of about 6 weeks duration. He went to see his regular doctor in his office and he was profoundly weak, so he was admitted directly for further management. Currently, most of the history is obtained by patient and his son at bedside. The patient complains of postprandial nausea, occasional vomiting, abdominal distention, and decreased appetite and decreased oral intake over the last several weeks. He states that he has been also noticing melena and has had some bowel incontinence with foul smelling bowel movements since the last several weeks as well. He denies any chest pain, shortness of breath. He denies any palpitation, cough. He denies any urinary burning, frequency. He denies any specific abdominal cramps. VITAL SIGNS: Currently, temperature of 98.6 degrees, pulse 57, respiratory rate 16, blood pressure 96/56. He is saturating 93% on room air. PHYSICAL EXAMINATION: GENERAL: Does not appear in any acute distress. ORAL CAVITY: Moist. LUNGS: Air entry bilaterally equal. No wheeze or rhonchi. Mild inspiratory crackles bilaterally in infrascapular region. HEART: S1, S2 normal. Appears irregularly irregular on bedside telemetry. He has frequent early paced beats. ABDOMEN: Soft, nontender. Active bowel sounds. EXTREMITIES: No lower extremity edema. NEUROLOGIC: He is alert and oriented x3. He appears weak. LABS: Suggestive of normocytic anemia. Normal platelet count. INR of 1.5, likely in setting of Eliquis use. Mild hyponatremia, hypokalemia. Normal kidney function. Hypoalbuminemia. MICROBIOLOGY: No data. IMAGING: Chest x-ray was unremarkable. Abdominal x-ray has constipation. ASSESSMENT AND PLAN: 1. Decreased oral intake, unintentional weight loss, poor oral intake, and postprandial abdominal distention. He denies any dysphagia though. Differential includes recurrence of esophageal candidiasis, acute gastritis or duodenitis, peptic ulcer disease. Mesenteric ischemia is also a likely possibility considering severe calcification on previous CAT scan abdomen that I could see. I will request Radiology to comment on his intraabdominal blood vessels tomorrow to see if mesenteric ischemia could be possible. 2. Melena. Though his hemoglobin is stable, he is on lower dose of Eliquis and aspirin. I am holding both of them and we will keep trending hemoglobin. 3. History of atrial fibrillation, status post pacemaker. Continue home amiodarone and carvedilol. 4. History of coronary artery disease, status post stent in 2004. Continue home pravastatin. Hold aspirin. 5. Anemia, likely because of chronic blood loss. Continue home proton pump inhibitors, iron carbonyl ascorbic acid, and folic acid. 6. Benign prostatic hypertrophy. Continue tamsulosin. 7. Gastroenterology recommendations pending. Plan of care discussed with patient and his son at bedside. All of their questions have been answered. cc: Isra Clemons MD MTDD
[2019-06-19] MEDS: PEPCID IV SCH ×2 (04:42→18:44)
[2019-06-19] MEDS: NS 1,000 ML IV SCH (04:46)
[2019-06-19] MEDS: NEXIUM PO SCH (06:22)
[2019-06-19 06:49] LABS: BASO# 0.01 X1000 (0.0-0.2); BASO% 0.1 % (0.0-0.8); EOS# 0.16 X1000 (0.0-0.7); EOS% 2.1 % (0.0-10.0); HEMATOCRIT 32.4 % (42.0-52.0); HEMOGLOBIN 10.9 g/dL (14.0-18.0); IMM GRAN# 0.02 X1000 (0.0-0.04); IMM GRAN% 0.3 % (0.0-0.5); LYMPH# 0.92 X1000 (1.2-3.4); LYMPH% 11.9 % (20.5-51.1); MCH 32.5 PG (27-31); MCHC 33.6 g/dL (33-37); MCV 96.7 FL (81-99); MONO# 0.91 X1000 (0.11-0.59); MONO% 11.7 % (1.7-9.3); MPV 9.8 FL (7.4-10.4); NEUT# 5.74 X1000 (1.4-6.5); NEUT% 73.9 % (42.2-75.2); PLT 145 X1000 (130-400); RBC 3.35 XMIL (4.7-6.1); RDW 13.9 % (11.5-14.5); WBC 7.76 X1000 (4.8-10.8)
[2019-06-19 07:26] LABS: AGAP 8; ALB/GLOB RATIO 0.7; ALBUMIN 2.6 g/dL (3.5-5.0); ALKALINE PHOSPHATASE 70 U/L (32-122); BUN 10 mg/dL (8-22); CALCIUM 8.4 mg/dL (8.8-10.2); CHLORIDE 105 mmol/L (98-107); COSMO 272; CREATININE 0.8 mg/dL (0.7-1.2); ESTIMATED GFR > 60; GLUCOSE 108 mg/dL (70-104); GOT 29 U/L (10-34); GPT 18 U/L (10-44); POTASSIUM 3.2 mmol/L (3.5-5.1); SODIUM 136 mmol/L (136-145); TCO2 23 mmol/L (25-35); TOTAL BILIRUBIN 0.76 mg/dL (0.20-1.00); TOTAL PROTEIN 6.2 g/dL (6.3-8.3)
--- NOTE | 2019-06-19 07:49 | EKG Report ---
Test Performed on : 06/19/2019 06:54:45 AM Test Reason : chest pain Blood Pressure : / mmHG Vent. Rate : 069 BPM Atrial Rate : 069 BPM P-R Int : 130 ms QRS Dur : 126 ms QT Int : 356 ms P-R-T Axes : 051 -59 077 degrees QTc Int : 381 ms Sinus rhythm. with premature atrial complexes. Left axis deviation Nonspecific intraventricular block Possible Lateral infarct (cited on or before 18-JUN-2019) Abnormal ECG When compared with ECG of 18-JUN-2019 20:23, (Unconfirmed) premature ventricular complexes. are no longer present premature atrial complexes. are now present Questionable change in initial forces of Lateral leads QT has shortened Confirmed by Luis Hart MD ([id number]) on 06/23/2019 9:29:28 PM
[2019-06-19] MEDS: POTASSIUM CHLORIDE 20 MEQ/SWI 20 MEQ/100 ML IVPB IV SCH ×2 (10:12→12:48)
[2019-06-19] MEDS: COREG PO SCH ×2 (10:13→20:19)
[2019-06-19] MEDS: ICAR-C PO SCH (10:13)
[2019-06-19] MEDS: FLOMAX PO SCH ×2 (10:13→20:18)
[2019-06-19] MEDS: CORDARONE PO SCH (10:13)
[2019-06-19] MEDS: FOLIC ACID PO SCH (10:14)
[2019-06-19] MEDS: IMURAN PO SCH ×2 (10:14→20:19)
[2019-06-19] MEDS ORDERED: POTASSIUM CHLORIDE 20 MEQ/SWI 20 MEQ/100 ML IVPB IV SCH (15:00)
--- NOTE | 2019-06-19 16:56 | PROGRESS NOTE ---
DATE: 06/19/2019 INTERVAL HISTORY: Patient still with some intermittent melena. Discussed his recent decreased p.o. intake and weight loss. He states that he has just had no appetite. Denies dysphagia, nausea, vomiting, or other issue preventing him from eating. He has attempted to drink 2 to 3 Ensures a day most days. Despite this, he appears to have lost approximately 30 pounds over the last 4 months based on weights from here in the hospital. No other acute events overnight. No new complaints. REVIEW OF SYSTEMS: Twelve point review of systems negative except as per interval history. LABS: WBC 7.7, hemoglobin 10.9, hematocrit 32.4, platelets 145,000. Sodium 136, potassium 3.2, BUN 10, creatinine 0.8. Stool occult blood positive. VITAL SIGNS: T-max 98.6 degrees, pulse 65, respirations 16, blood pressure 101/60, O2 saturation 93% on room air. PHYSICAL EXAMINATION: General: No acute distress. Vital signs: As above. HEENT: Normocephalic, atraumatic. Moist mucous membranes. No cervical adenopathy. Cardiovascular: Regular rate and rhythm. No murmurs noted. Pulmonary: Clear to auscultation bilaterally. No wheezing, rales, or rhonchi. Abdomen: Soft, nontender, nondistended. Bowel sounds positive. Extremities: Peripheral pulses intact. No clubbing, cyanosis, or edema. Neurologic: Cranial nerves grossly intact. Mild global weakness but no focal deficits identified. Psychiatric: Normal mood and affect. Awake, alert, oriented x3. Skin: No new rashes or lesions identified. ASSESSMENT AND PLAN: 1. Melena. The patient with complaints of ongoing melena. FOBT positive. Only mild decrease in hemoglobin and hematocrit. No need for transfusion at this time but will continue to monitor. GI recommendations pending. Continue n.p.o. and continue Protonix. 2. Decreased p.o. intake, unintentional weight loss. Patient without history. Denying dysphagia, nausea, or other mechanical issues. States that he simply has no appetite. Does have significant weight loss documented by weights here at the hospital. Approximately 20 pounds over the last 4 months. GI workup as above. If unremarkable then may consider starting him on an appetite stimulant. 3. Atrial fibrillation, cardiac pacemaker. Continue home amiodarone and Coreg. Holding home Eliquis and aspirin because of GI bleed. 4. Coronary artery disease. Last stent in 2004. Continue statin. Holding aspirin as above. 5. Benign prostatic hypertrophy. Continue tamsulosin. 6. Hypokalemia. We will further replete and monitor as it remains low. 7. Hyponatremia. Resolved with fluids overnight. JALEN
--- NOTE | 2019-06-19 19:20 | GASTROENTEROLOGY CONSULTATION ---
DATE: 06/19/2019 REASON FOR CONSULTATION: Melena, history of gastric ulcer. HISTORY OF PRESENT ILLNESS: This is an 79-year-old male who we had seen in the hospital in February for similar symptoms. At that time, he was admitted with hematemesis and abdominal pain and anemia. An EGD on 02/25/2019 showed Christine esophagitis and an ulcer in the cardia. He was treated with PPI and his Christine was treated. He actually had a followup EGD scheduled as an outpatient for next Monday. The patient had followed with Dr. Moore the day of admission and had complained of melena and weakness. Patient was sent to [facility] for further evaluation. Patient states that over the last several weeks, he has had progressive weakness and weight loss. He has not been able to eat much. He had noticed some black stools. Patient reported following with Dr. Moore and was recommended admission to [facility] for further evaluation. Patient has been taking his PPI as directed. Patient has taken ibuprofen in the past, but states he has not had that in several months. He would take ibuprofen on occasion for a headache. Patient has reported some recent change in his bowel habits where he was having loose stools and accidents, along with noting dark color in his stool. Patient has been taking iron supplements. He had a Hemoccult stool test that was positive here in the hospital. Patient also has been complaining of back pain and apparently has a T12 compression fracture, and was being followed for this. Patient does take low-dose aspirin and Eliquis for a history of atrial fibrillation. He has a history of pacemaker placement in 2016. PAST MEDICAL HISTORY: 1. Atrial fibrillation. 2. Rheumatoid arthritis. 3. History of kidney cyst. 4. Coronary artery disease with history of myocardial infarction. 5. History of cardiovascular stent placement. 6. Chronic low back pain with diagnosis of compression fracture at T12. 7. GERD with history of gastric ulcer in November 2018. PAST SURGICAL HISTORY: 1. Cardiovascular stent in 2004. 2. Kidney cyst removal. 3. Right lower lobectomy. 4. History of back surgery. 5. History of bilateral eye implants. 6. Pacemaker in 2016. 7. EGD in February 2019 that showed Christine esophagitis and an ulcer in the cardia. ALLERGIES: Morphine, causing anaphylaxis. HOME MEDICATIONS: 1. Pacerone 200 mg daily. 2. Eliquiis 2.5 mg twice a day. 3. Aspirin 81 mg daily. 4. Imuran 50 mg twice a day. 5. Coreg 6.25 mg twice a day. 6. Nexium 40 mg daily. 7. Folic acid 1 mg daily. 8. Remicade IV as directed. 9. Iron supplement 1 tablet daily. 10. Pravachol 80 mg every night. 11. Flomax 0.4 mg twice a day. 12. Vitamin B12, calcium, B6, and B1, one tablet every night. SOCIAL HISTORY: He lives at home with the help of his grandson. History of tobacco use; quit in 1970s. No reported alcohol or drug use. FAMILY HISTORY: Father of [place] at age 62. Mother of stroke at age 70. He has 2 brothers with history of myocardial infarction, a brother that of cancer, and a sister that of lupus. REVIEW OF SYSTEMS: Per History of Present Illness. PHYSICAL EXAMINATION: Vital Signs: Temperature 98 degrees, pulse 54, respirations 20, blood pressure 89/54. General: Patient is awake and alert, in no acute distress. HEENT: Normocephalic, atraumatic. Pupils equal, round, reactive to light. Sclerae nonicteric. Respiratory: Lung sounds essentially clear. Cardiovascular: Regular rate and rhythm. Patient has a pacemaker. Abdomen: Soft, nontender. Positive bowel sounds. Extremities: No lower extremity edema noted. Neurologic: Cranial nerves 2 through 12 grossly intact. Patient is awake and alert. DIAGNOSTIC RESULTS/LABORATORY: 1. Hematology: WBC 7.76, hemoglobin 10.9, hematocrit 32.4, MCV 96.7, platelet 145,000. Coagulation: Protime 19.1, INR 1.57, PTT 41.1. 2. Chemistry: Sodium 136, potassium 3.2, chloride 105, CO2 23, BUN 10, creatinine 0.8, glucose 108, calcium 8.4, magnesium 2.1, total bilirubin 0.76, AST 29, ALT 18, alkaline phosphatase 70. 3. Imaging: Chest x-ray showing stable chest. Abdominal x-ray showed constipation and prominent atherosclerosis. ASSESSMENT AND PLAN: 1. Melena. 2. Mild anemia. 3. Decreased appetite and weight loss. 4. History of atrial fibrillation, coronary artery disease, history of cardiovascular stents, on aspirin and Eliquis. 5. Back pain. PLAN: 1. Continue proton pump inhibitor. 2. Continue to monitor for active gastrointestinal bleeding. 3. Monitor hemoglobin and hematocrit, and transfuse packed red blood cells if needed. 4. Patient was scheduled for an outpatient followup esophagogastroduodenoscopy for followup of gastric ulcer next week. Will change this and proceed with esophagogastroduodenoscopy early, on . I have discussed the esophagogastroduodenoscopy procedure with the patient and the son, and they wish to proceed. Further plans will be made according to findings. I have discussed this case with Dr. Maravilla. Thank you for this consultation. Dictated by TRUNG Bundy for Krzysztof Maravilla MD cc: TRUNG Coburn MD
[2019-06-19] MEDS: VICON-C PO SCH (20:18)
[2019-06-19] MEDS: PRAVACHOL PO SCH (20:19)
[2019-06-20] MEDS: PEPCID IV SCH ×2 (04:56→06:13)
[2019-06-20] MEDS: NEXIUM PO SCH (06:13)
[2019-06-20] MEDS: POTASSIUM CHLORIDE 20 MEQ/SWI 20 MEQ/100 ML IVPB IV SCH ×2 (10:31→14:29)
[2019-06-20] MEDS: NS 1,000 ML IV SCH ×2 (10:33→16:59)
[2019-06-20] MEDS ORDERED: DIPRIVAN 1% ONE (12:11)
[2019-06-20] MEDS ORDERED: XYLOCAINE-MPF 2% ONE (13:05)
--- NOTE | 2019-06-20 13:34 | ENDOSCOPY OPERATIVE NOTE ---
[facility] ENDOSCOPY OPERATIVE NOTE , PATIENT: Geovani Rosen ADMISSION DATE: 06/20/2019 MR#: [id number] : 1940 EGD PROCEDURE REPORT PROCEDURE DATE: 06/20/2019 SURGEON: Krzysztof Maravilla MD STATUS: inpatient HEAVY LIFT RIGGER: Mara Pandey and Samira Christensen PREOPERATIVE DIAGNOSIS: The patient is a 79 yr old male here for an EGD due to melena and acute post hemorrhagic anemia. PROCEDURE PERFORMED: EGD w/ biopsy MEDICATIONS: Per Anesthesia TOPICAL ANESTHETIC: none CONSENT: The patient understands the risks and benefits of the procedure and understands that these r isks include, but are not limited to: sedation, allergic reaction, infection, perforation and/or bleeding. Alternative means of evaluation and treatment include, among others: physical exam, x-rays, and/or surgical intervention. The patient elects to proceed with this endoscopic procedure. HISORY AND PHYSICAL: 06/20/2019 function. Hand hygiene and appropriate measures for infection prevention was taken. After the risks, benefits and alternatives of the procedure were thoroughly explained, Informed consent was verified, confirmed and timeout was successfully executed by the treatment team. The patient was anesthetized with topical anesthesia and the XD25-[id number] ([id number]) endoscope was introduced through the mouth and advanced to the second portion of the duoden um. Retroflexion was performed in the stomach and revealed no abnormalities. The gastroscope was then slowly withdraw n and removed. ESOPHAGUS: The mucosa of the esophagus appeared normal. STOMACH: Mild gastritis (inflammation) was found in the gastric antrum. Multiple biopsies were perfo rmed using cold forceps. Sample sent for histology. There was no evidence of AVM, Ulcer, Varices or Tumor noted. The stomach otherwise appeared normal. DUODENUM: The duodenal mucosa showed no abnormalities. SPECIMENS REMOVED: No ADVERSE EVENTS: There were no complications. POSTOPERATIVE DIAGNOSIS: 1. The mucosa of the esophagus appeared normal 2. Gastritis (inflammation) was found in the gastric antrum; multiple biopsies were performed 3. The stomach otherwise appeared normal 4. The duodenal mucosa showed no abnormalities RECOMMENDATIONS: 1. Resume pre-procedure medications 2. Follow-up biopsy results in 2 weeks 3. Return to floor when standard parameters are met REPEAT EXAM: Krzysztof Maravilla MD eSigned: Krzysztof Maravilla MD 06/20/2019 1:33 PM cc: PATIENT NAME: Geovani Rosen MR#: [id number]
[2019-06-20] MEDS: FOLIC ACID PO SCH (14:22)
[2019-06-20] MEDS: FLOMAX PO SCH ×2 (14:22→21:04)
[2019-06-20] MEDS: CORDARONE PO SCH (14:24)
[2019-06-20] MEDS: COREG PO SCH ×2 (14:24→20:57)
[2019-06-20] MEDS: IMURAN PO SCH ×2 (14:24→21:04)
[2019-06-20] MEDS: ICAR-C PO SCH (14:25)
[2019-06-20 16:28] LABS: BASO# 0.01 X1000 (0.0-0.2); BASO% 0.1 % (0.0-0.8); EOS# 0.13 X1000 (0.0-0.7); EOS% 1.6 % (0.0-10.0); HEMATOCRIT 34.5 % (42.0-52.0); HEMOGLOBIN 11.6 g/dL (14.0-18.0); LYMPH# 0.75 X1000 (1.2-3.4); LYMPH% 9.4 % (20.5-51.1); MCH 32.7 PG (27-31); MCHC 33.6 g/dL (33-37); MCV 97.2 FL (81-99); MONO# 0.73 X1000 (0.11-0.59); MONO% 9.2 % (1.7-9.3); MPV 9.5 FL (7.4-10.4); NEUT# 6.34 X1000 (1.4-6.5); NEUT% 79.7 % (42.2-75.2); PLT 167 X1000 (130-400); RBC 3.55 XMIL (4.7-6.1); RDW 14.1 % (11.5-14.5); WBC 7.96 X1000 (4.8-10.8)
[2019-06-20 16:50] LABS: AGAP 9; BUN 7 mg/dL (8-22); CHLORIDE 105 mmol/L (98-107); COSMO 270; CREATININE 0.9 mg/dL (0.7-1.2); ESTIMATED GFR > 60; GLUCOSE 95 mg/dL (70-104); POTASSIUM 3.5 mmol/L (3.5-5.1); SODIUM 136 mmol/L (136-145); TCO2 22 mmol/L (25-35)
--- NOTE | 2019-06-20 17:05 | PROGRESS NOTE ---
DATE: 06/20/2019 INTERVAL HISTORY: Patient still with complaints of intermittent melena. Otherwise asymptomatic. No new complaints. Currently n.p.o. for endoscopy. REVIEW OF SYSTEMS: Twelve point review of systems negative except as per interval history. LABS: Pending. VITAL SIGNS: T-max 99.1 degrees, pulse 79, respirations 16, blood pressure 113/60, O2 saturation 95% on room air. PHYSICAL EXAMINATION: General: No acute distress. Chronically ill-appearing. Vital signs: As above. HEENT: Normocephalic, atraumatic. Moist mucous membranes. No cervical adenopathy. Cardiovascular: Regular rate and rhythm. No murmurs noted. Pulmonary: Clear to auscultation bilaterally. No wheezing, rales, or rhonchi. Abdomen: Soft, nontender, nondistended. Bowel sounds are positive. Extremities: Peripheral pulses intact. No clubbing, cyanosis, or edema. Neurologic: Cranial nerves grossly intact. Mild global weakness, unchanged, but no focal deficits seen. Psychiatric: Normal mood and affect. Awake, alert, oriented x3. Skin: No new rashes or lesions identified. ASSESSMENT AND PLAN: 1. Melena. Patient still with complaints of ongoing melena. FOBT positive. Repeat hemoglobin and hematocrit pending but only mild decrease up to this point. Continue PPI. Patient currently n.p.o. for endoscopy for further evaluation. 2. Decreased p.o. intake, unintentional weight loss. Patient denying dysphagia, nausea, or other mechanical issues. No vomiting. States that he has no appetite or has had no appetite. No significant weight loss over the last 4 months. GI workup as above. If unremarkable, may consider starting an appetite stimulant. 3. Atrial fibrillation, cardiac pacemaker. Continue home amiodarone and Coreg. Holding home Eliquis and aspirin because of GI bleed. 4. Coronary artery disease, last in 2004. Continue statin. Holding aspirin as above. 5. Benign prostatic hypertrophy. Continue tamsulosin. Still with complaints of urinary frequency and hesitancy. We will go ahead and start him on some finasteride. 6. Hypokalemia, status post repletion. Will await recheck and monitor. 7. Hyponatremia. Resolved on last check.
[2019-06-20] MEDS: VICON-C PO SCH (21:04)
[2019-06-20] MEDS: PRAVACHOL PO SCH (21:04)
[2019-06-21] MEDS: NEXIUM PO SCH (06:09)
[2019-06-21] MEDS: NS 1,000 ML IV SCH ×3 (07:06→23:40)
[2019-06-21 07:17] LABS: BASO# 0.01 X1000 (0.0-0.2); BASO% 0.1 % (0.0-0.8); EOS# 0.19 X1000 (0.0-0.7); EOS% 2.6 % (0.0-10.0); HEMATOCRIT 35.8 % (42.0-52.0); HEMOGLOBIN 11.8 g/dL (14.0-18.0); IMM GRAN# 0.02 X1000 (0.0-0.04); IMM GRAN% 0.3 % (0.0-0.5); LYMPH# 0.98 X1000 (1.2-3.4); LYMPH% 13.4 % (20.5-51.1); MONO# 0.79 X1000 (0.11-0.59); MONO% 10.8 % (1.7-9.3); MPV 9.6 FL (7.4-10.4); NEUT# 5.32 X1000 (1.4-6.5); NEUT% 72.8 % (42.2-75.2); PLT 176 X1000 (130-400); RBC 3.69 XMIL (4.7-6.1); RDW 14.2 % (11.5-14.5); WBC 7.31 X1000 (4.8-10.8)
[2019-06-21 07:35] LABS: AGAP 12; BUN 7 mg/dL (8-22); CALCIUM 9.2 mg/dL (8.8-10.2); CHLORIDE 103 mmol/L (98-107); COSMO 269; CREATININE 0.9 mg/dL (0.7-1.2); ESTIMATED GFR > 60; GLUCOSE 83 mg/dL (70-104); POTASSIUM 3.3 mmol/L (3.5-5.1); SODIUM 136 mmol/L (136-145); TCO2 21 mmol/L (25-35)
[2019-06-21] MEDS: ICAR-C PO SCH (09:49)
[2019-06-21] MEDS: FLOMAX PO SCH ×2 (09:49→22:33)
[2019-06-21] MEDS: COREG PO SCH ×2 (09:49→22:34)
[2019-06-21] MEDS: FOLIC ACID PO SCH (09:49)
[2019-06-21] MEDS: CORDARONE PO SCH (09:49)
[2019-06-21] MEDS: IMURAN PO SCH ×2 (09:49→22:33)
[2019-06-21] MEDS: POTASSIUM CHLORIDE 20 MEQ/SWI 20 MEQ/100 ML IVPB IV SCH ×2 (13:44→16:22)
--- NOTE | 2019-06-21 14:15 | GASTROENTEROLOGY PROGRESS NOTE ---
DATE: 06/21/2019 SUBJECTIVE: Patient states he is feeling some better. EGD on 06/20/2019 showed normal esophagus, mild gastritis in the gastric antrum with biopsies, otherwise no evidence of AVM, ulcers, varices or tumors. Stomach was normal. OBJECTIVE: Vital Signs: Temperature 98.6 degrees, pulse 63, respirations 20, blood pressure 106/58. General: Patient is awake and alert in no acute distress. LABORATORY: Hematology. WBC 7.31, hemoglobin 11.8, hematocrit 35.8, MCV 97.0. Chemistry. Sodium 136, potassium 3.3, chloride 103, CO2 21, BUN 7, creatinine 0.9, glucose 83, calcium 9.2. ASSESSMENT AND PLAN: 1. Recent melena. 2. Recent weight loss and appetite loss. 3. Atrial fibrillation, history of cardiac pacemaker on Eliquis and aspirin. 4. History of gastric ulcer with repeat EGD on 06/20/2019 that showed gastritis but no evidence of ulcers. Continue PPI. Avoid NSAIDs. Recommend he follow up with us as an outpatient once discharged. Will follow on pathology results which are pending. I have discussed this case with Dr. Maravilla. Dictated by TRUNG Bundy for Krzysztof Maravilla MD cc: TRUNG Coburn MD
--- NOTE | 2019-06-21 17:27 | PROGRESS NOTE ---
DATE: 06/21/2019 INTERVAL HISTORY: Patient with no further melena. Reports some improvement in appetite. No new complaints. Initially anticipated discharge today but discussed with family. They had concerns about the patient's profound weakness and their ability to take care of him at home. The patient has been refusing physical therapy but does appear to be debilitated. He is certainly malnourished. Discussed with family that he seemed appropriate for rehab, and we could attempt to facilitate this. The patient is quite reluctant to go to rehab. Further discussions pending. REVIEW OF SYSTEMS: Twelve point review of systems negative except as per interval history. LABS: WBC 7.3, hemoglobin 11.8, hematocrit 35.8, platelets 176,000. Sodium 136, potassium 3.3, BUN 7, creatinine 0.9. VITALS: T-max 99.3 degrees, pulse 61, respirations 20, blood pressure 119/63, O2 saturation 95% on room air. PHYSICAL EXAMINATION: General: No acute distress. Chronically ill-appearing. Vitals: As above. HEENT: Normocephalic, atraumatic. Moist mucous membranes. No cervical adenopathy. Cardiovascular: Regular rate and rhythm. No murmurs noted. Pulmonary Clear to auscultation bilaterally. No wheezing, rales, or rhonchi. Abdomen: Soft, nontender, nondistended. Bowel sounds positive. Extremities: Peripheral pulses intact. No clubbing, cyanosis, or edema. Neurologic: Cranial nerves grossly intact. Mild to moderate global weakness essentially unchanged. Some mild muscle wasting noted globally. Psychiatric: Normal mood and affect. Awake, alert and oriented x3. Skin: No new rashes or lesions identified. ASSESSMENT AND PLAN: 1. Melena. Fecal occult blood test was positive. Esophagogastroduodenoscopy was performed showing mild gastritis, but no arteriovenous malformation, ulcer, or other more significant pathology. Remains somewhat uncertain as to the exact source of his bleeding, but patient's blood counts are stable. Symptoms are improved so appears to be resolved for the moment. 2. Decreased p.o. intake, unintentional weight loss, likely severe protein calorie malnutrition. Patient has not had any dysphagia, nausea, persistent vomiting, or other mechanical issue. Simply states that he has had no appetite. He has had significant weight loss over the last 4 months, approximately 20 pounds. GI workup as above was largely unremarkable, but that said, after treatment with proton pump inhibitor, the patient does report improved appetite. We will monitor while he is here. 3. Generalized weakness, asthenia. The patient does have fairly significant weakness globally, has severe protein calorie malnutrition. Family with concerns about their ability to take care of him at home, which is certainly legitimate. The patient has been reluctant to participate with PT, still awaiting their full evaluation and patient is somewhat reluctant, but we will continue to discuss with him and encourage him to at least consider short-term rehab. 4. Atrial fibrillation, cardiac pacemaker. Continue home amiodarone, Coreg. Holding home Eliquis and aspirin because of likely upper gastrointestinal bleed. 5. Chronic systolic congestive heart failure. No sign of volume overload at this time, but patient with echocardiogram last year showing ejection fraction 20%. Continue Coreg, and we will add Cozaar. Blood pressure has been low normal so we will monitor blood pressure closely with the start of an ARB. 6. Chronic obstructive pulmonary disease and pulmonary fibrosis. No sign of exacerbation at this time, although may be contributing to general debility. We will monitor and add nebs or steroids as needed. 7. Benign prostatic hypertrophy. Continue home medications. 8. Hypokalemia. Low again today. We will further replete and monitor. 9. Hyponatremia, resolved.
[2019-06-21] MEDS: PRAVACHOL PO SCH (22:33)
[2019-06-21] MEDS: VICON-C PO SCH (22:33)
[2019-06-22 06:26] LABS: BASO# 0.02 X1000 (0.0-0.2); BASO% 0.3 % (0.0-0.8); EOS# 0.15 X1000 (0.0-0.7); EOS% 2.2 % (0.0-10.0); HEMATOCRIT 32.2 % (42.0-52.0); HEMOGLOBIN 10.7 g/dL (14.0-18.0); IMM GRAN# 0.03 X1000 (0.0-0.04); IMM GRAN% 0.4 % (0.0-0.5); LYMPH# 0.87 X1000 (1.2-3.4); MCH 31.8 PG (27-31); MCHC 33.2 g/dL (33-37); MCV 95.5 FL (81-99); MONO# 0.61 X1000 (0.11-0.59); MONO% 9.1 % (1.7-9.3); MPV 9.5 FL (7.4-10.4); NEUT# 5.01 X1000 (1.4-6.5); PLT 171 X1000 (130-400); RBC 3.37 XMIL (4.7-6.1); WBC 6.69 X1000 (4.8-10.8)
[2019-06-22] MEDS: NEXIUM PO SCH (06:32)
[2019-06-22 07:13] LABS: AGAP 10; BUN 6 mg/dL (8-22); CALCIUM 8.3 mg/dL (8.8-10.2); CHLORIDE 107 mmol/L (98-107); COSMO 273; CREATININE 0.8 mg/dL (0.7-1.2); ESTIMATED GFR > 60; GLUCOSE 101 mg/dL (70-104); POTASSIUM 3.1 mmol/L (3.5-5.1); SODIUM 138 mmol/L (136-145); TCO2 21 mmol/L (25-35)
[2019-06-22] MEDS: ICAR-C PO SCH (08:37)
[2019-06-22] MEDS: CORDARONE PO SCH (08:37)
[2019-06-22] MEDS: COREG PO SCH (08:37)
[2019-06-22] MEDS: FLOMAX PO SCH (08:37)
[2019-06-22] MEDS: FOLIC ACID PO SCH (08:37)
[2019-06-22] MEDS ORDERED: COZAAR PO SCH (09:00)
[2019-06-22] MEDS: IMURAN PO SCH (09:48)
--- NOTE | 2019-06-22 11:20 | Diag Imaging Result Doc PS360 ---
EXAM: CHEST-PORTABLE 06/22/2019 HISTORY: cough TECHNIQUE: AP portable at 1108 COMMENT: There is some hazy opacity over the left costophrenic angle region of the lower lobe. This was not as prominent on the previous study of 06/18/2019. Otherwise there has been no significant change. IMPRESSION: Questionable pulmonary edema. Electronically signed by Ran Branch 06/22/2019 11:18 AM
[2019-06-22] MEDS: POTASSIUM CHLORIDE 20 MEQ/SWI 20 MEQ/100 ML IVPB IV SCH ×2 (11:52→15:31)
[2019-06-22] MEDS: NS 1,000 ML IV SCH (12:27)
[2019-06-22 15:07] VITALS: BP 112/66
--- NOTE | 2019-06-22 17:43 | DISCHARGE SUMMARY ---
DATE OF ADMISSION: 06/18/2019 DATE OF DISCHARGE: 06/22/2019 CONSULTS: GI, DR. Maravilla. PROCEDURES: Endoscopy showing mild gastritis of the gastric antrum, otherwise unremarkable. PERTINENT STUDIES: Abdominal x-ray initially showing constipation. Chest x-ray essentially unremarkable. Hemoglobin initially 11.5, trended as low as 10.7, but overall approximately stable. Mildly low potassium as low as 3.2. DISCHARGE DIAGNOSES: 1. Melena. 2. Possible upper gastrointestinal bleed. 3. Anorexia. 4. Unintentional weight loss. 5. Severe protein calorie malnutrition. 6. Generalized weakness/asthenia 7. Paroxysmal atrial fibrillation. 8. Chronic systolic congestive heart failure, ejection fraction 20%. 9. Chronic obstructive pulmonary disease and pulmonary fibrosis. 10. Benign prostatic hypertrophy. 11. Hypokalemia. 12. Hyponatremia. HOSPITAL COURSE: The patient presented initially with complaints of lack of appetite, weakness, weight loss, and black tarry stools. He has had a GI bleed in the past. He was taking Eliquis for his for stroke prophylaxis for his atrial fibrillation. He also complained of back pain, but this has been chronic at least since a diagnosis of T12 compression fracture. Blood counts were mildly low on admission and dropped very slightly, but never got profoundly low. Hemoglobin was 11.5 on admission, dropped to 10.94, coming back up, and after that fluctuated up and down some but had no significant drops. He was evaluated by GI with upper endoscopy. They found mild gastritis but no ulcers, AVMs, or other major pathology. He was noted to have some constipation on initial x-ray and was put on a little bit of a bowel regimen which improved that. The patient did also endorse some difficulty controlling his bowels, which was favored to represent overflow diarrhea. This did appear to improve with a bowel regimen. The patient never had any significant volume overload despite having fairly significant heart failure, with the last echo a little over a year ago showing an ejection fraction of 20%. His history of atrial fibrillation remained largely normal sinus rhythm while here. He had some minor electrolyte abnormalities which were repleted. After improvement in his constipation and being placed on a PPI for a couple of days, he did have some improvement in his appetite and was actually eating fairly well at the time of discharge. Family was initially reluctant to take him home and desired rehab placement, which the patient strongly opposed. However, after evaluation by physical therapy, he actually did pretty well, with essentially no assistance required to walk with a walker. After that and with further discussion between the patient and the family, they did live eventually elect to go home. I recommended that the patient remain on a laxative daily unless he is having diarrhea. Also added an ARB to the patient since he has a history of chronic systolic congestive heart failure. He was discharged in stable condition to follow up with his PCP and GI. DISCHARGE VITAL SIGNS: Temperature 98.1, pulse 60, respirations 20, blood pressure 112/66, 02 saturation 94% on room air. DISCHARGE DIET: Low-salt. DISCHARGE MEDICATIONS: Pravastatin 80 mg p.o. at bedtime, Coreg 6.25 mg p.o. b.i.d., folic acid 1 mg p.o. daily. Imuran 50 mg p.o. b.i.d., oral iron daily, amiodarone 200 mg p.o. daily, Remicade 100 mg every 6 to 8 weeks, aspirin 81 mg p.o. daily, Cozaar 25 mg p.o. daily, Flomax 0.4 mg p.o. b.i.d., MiraLAX 17 g p.o. daily (hold if greater than 2 bowel movements in the last day), Nexium 40 mg p.o. daily. FOLLOWUP AND PLAN: Patient discharging home on MiraLAX, Nexium. Holding Eliquis for now until followup with PCP with repeat labs. Did discuss with patient and family that if the blood counts remain stable, then they could decide to reinitiate Eliquis for stroke prophylaxis. Patient to remain on bowel regimen to prevent further constipation, which was favored to be the cause of his issues with incontinence. Greater than 30 minutes spent arranging discharge and counseling patient.
== END 2019-06-22 17:51 | DRG 377 ==
LOC: SUATTDRO 13:50 → DIRADM 13:50 → 4N 14:18
PROVIDERS: ATTEND Internal Medicine

== ENCOUNTER 2019-07-29 10:02 | Inpatient (IN) ==
--- NOTE | 2019-07-29 10:29 | PROVIDER DOCUMENTATION ---
HPI-General Adult - General Chief Complaint: Fall Stated Complaint: FELL HIP PAIN Time Seen by Provider: 07/29/19 10:10 Source: patient Allergies/Adverse Reactions: Patient Allergies Allergy/AdvReac Type Severity Reaction Status Date / Time morphine Allergy Severe ANAPHYLAXIS Verified 07/29/19 11:08 Home Medications: Home Medication List Medication Instructions Recorded Confirmed Last Taken Type Infliximab [Remicade] 100 mg IV ORDERED 01/26/15 06/18/19 05/20/19 History PRAVAstatin [Pravachol] 80 mg PO QHS 01/26/15 06/18/19 06/17/19 History Aspirin 81 mg PO DAILY #0 chewtab 02/28/19 06/18/19 06/18/19 Rx Tamsulosin [Flomax] 0.4 mg PO BID cap 02/28/19 06/18/19 06/18/19 Rx Amiodarone HCl [Pacerone] 200 mg PO DAILY 06/18/19 06/18/19 06/18/19 History Azathioprine [Imuran] 50 mg PO BID 06/18/19 06/18/19 06/18/19 History Carvedilol [Coreg] 6.25 mg PO BID 06/18/19 06/18/19 06/18/19 History Folic Acid 1 mg PO DAILY 06/18/19 06/18/19 06/18/19 History Iron,Carbonyl/Ascorbic Acid [Iron 1 tab PO DAILY 06/18/19 06/18/19 06/18/19 History 100-Vitamin C Tablet] Vit B12/Lmefolate Ca/Vit B6/B2 1 tab PO QHS 06/18/19 06/18/19 06/17/19 History [Cerefolin Caplet] Esomeprazole [Nexium] 40 mg PO DAILY #30 cap 06/22/19 Unknown Rx Losartan [Cozaar] 25 mg PO DAILY #30 tab 06/22/19 Unknown Rx Polyethylene Glycol 3350 [Miralax] 17 gm PO DAILY #30 powd.pack 06/22/19 Unknown Rx - History of Present Illness -Gen Adult Nature of Presenting Problems: Pt. is 79 yom that presents with c/o left hip pain after he fell at home yesterday. Pt. reports no other injury but states he is on blood thinners. Location of Pain/Injury: reports: pelvis (Left hip). denies: none, head, face, mouth, neck, chest, upper extremity, hand(s), abdomen, back, genitalia, lower ex tremity, feet, upper body, lower body, generalized, other Pain Radiation: reports: no radiation. denies: arm(s), back, buttocks, chest, epigastric, feet, groin, jaw, flank (L), legs (lower), LLQ, LUQ, neck, periumbilical, flank (R), RLQ, RUQ, shoulder(s), scapula, scrotal, sternal notch, suprapubic, legs (upper), urethral, vaginal, other Quality of Pain: reports: aching. denies: burning, sharp, tightness Severity: reports: moderate. denies: mild, severe Onset/Duration: reports: abrupt, last night Timing: reports: still present. denies: improving, intermittent, getting worse Context/Activities at Onset: reports: light activity, recent trauma history. denies: none, moderate activity, vigorous activity, recent emotional stress, recent physical stress, possible bad food, cold exposure, eating, out of country travel, rest, sleep, sexual activity, other Modifying Factors: improves with: immobilization. worse with: movement Associated Symptoms: reports: joint pain (Left hip). denies: denies symptoms, anxiety, arm pain, back/neck pain, chest pain, constipation, cough, diaphoresis, diarrhea, dizziness, EENT symptoms, fatigue, fever/chills, genitourinary probl ems, headaches, heartburn, loss of appetite, malaise, muscle aches, sinus congestion/drainage, nausea, rash, seizure, shortness of breath, sensory/motor loss, pain with inspiration, swelling/mass in abdomen, syncope, vomiting, weakness, trouble walking, other Similar Symptoms Previously?: Yes Recently seen or treated by another doctor?: No Review of Systems - Adult - REVIEW OF SYSTEMS - ADULT Constitutional: reports: no symptoms reported Eyes: reports: no symptoms reported Ears, Nose, Mouth & Throat: reports: no symptoms reported Cardiovascular: reports: no symptoms reported Respiratory: reports: no symptoms reported Gastrointestinal: reports: no symptoms reported Genitourinary: reports: no symptoms reported Musculoskeletal: reports: see HPI, joint pain (Left hip). denies: back pain, muscle aches, neck pain Integumentary: reports: no symptoms reported Neurological: reports: no symptoms reported Psychiatric: reports: no symptoms reported Past History - Adult - PAST MEDICAL HISTORY-ADULT Review of Records: reports: Old Records Reviewed, Nursing Assessment Review, Medications Reviewed, Social history reviewed & non-contributory. Major Childhood Illnesses: reports: denies history Cardiovascular: reports: HTN, [place] Respiratory: reports: denies history Gastrointestinal: reports: denies history Obstetrical/Gynecological: reports: denies history Genitourinary: reports: denies history Musculoskeletal: reports: arthritis Neurological: reports: denies history Endocrine/Immune: reports: denies history Other Conditions: reports: denies history - PRIOR SURGERIES/PROCEDURES Surgical/Procedure History: reports: reviewed, not pertinent, other (heart cath, salivary gland removal) - IMMUNIZATION STATUS Childhood Immunizations: See Nurse Assessment Flu Vaccine: See Nurse Assessment - FAMILY HISTORY Family History: reviewed, not pertinent - SOCIAL HISTORY Smoking: non-smoker Physical Exam-General - PHYSICAL EXAM-ADULT Initial Vital Signs Reviewed: Yes - CONSTITUTIONAL General Appearance: alert, mild distress, thin. negative: anxious, slow to respond, obtunded, combative - EYES Eyes: PERRL/EOMI, pink conjunctivae - HEAD, EARS, NOSE, MOUTH & THROAT HENMT: normocephalic/atraumatic, moist mucous membranes. negative: angioedema, frontal tenderness, maxillary tenderness - NECK Neck: non-tender, full range of motion, supple, normal inspection. negative: lymphadenopathy, trachial deviation, thyromegaly - RESPIRATORY Respiratory: lungs clear, normal breath sounds - CARDIOVASCULAR Cardiovascular: normal peripheral pulses, regular rate, rhythm, no edema - GASTROINTESTINAL (ABDOMEN) Abdominal Exam: normal bowel sounds, non tender, soft. negative: distended, guarding, rigid, rebound, tenderness, hernia, mass - LYMPHATIC Lymphatic: no adenopathy - MUSCULOSKELETAL Back Exam: normal inspection, no CVA tenderness, no vertebral tenderness Extremity: tenderness (Left hip). negative: deformity, erythema, inflammation, swelling Peripheral Pulses: radial (R): 2+, radial (L): 2+ - SKIN Integumentary: normal color, normal turgor, warm/dry - NEUROLOGIC Neurologic: grossly normal, no motor/sensory deficits - PSYCHIATRIC Psych/Mental Status: normal mood/affect, normal thought content, normal thought process, oriented x 3. negative: anxious, paranoid, tearful Progress - PLAN OF CARE/RESULTS Progress/Plan/Lab Results: Vital Signs - 8 hr 07/29/19 10:10 Temperature 97.7 F Pulse Rate 81 Respiratory Rate 16 Blood Pressure 91/61 O2 Sat by Pulse Oximetry 93 L Orders Category Date Time Status CT PELVIS W/O CONTRAST [CT] Stat Exams 07/29/19 10:18 Ordered Result Diagrams: 07/29/19 11:24 - EKG 1 Time of EKG reading by physician:: 11:31 EKG Read and Signed by:: Jaqui Shannon EKG Interpretation (*Must complete 3 of following elements*): Abnormal Rate: 74 Rhythm: Paced - XRAY 2 XRAY Study: Chest ([facility] - [address] [facility] [address], [place] [address] [facility] - [address] [place] [address] Department of Imaging [facility] Date: 07/29[facility]19#: [id number] : 9ADM Status: [facility]#: [id number] Age/Sex: 79/MRoom/Bed: Loc: P.ED Ordering Physician: Augustina Fleming Family Physician: Mehreen Moore MD Reason for Procedure: admit Signed EXAM: CHEST-PORTABLE - 07/29/2019 HISTORY: admit TECHNIQUE: Portable chest COMPARISON: 06/22/2019 FINDINGS: Heart size is normal. There is transvenous cardiac pacemaker again seen. There is some tortuosity of the thoracic aorta similar to prior. Lungs appear clear. There is no pleural effusion or pneumothorax identified. There is in old fracture deformity of the posterior right fifth rib. IMPRESSION: No evidence of acute disease. Electronically signed by Magnus Dc 07/29/2019 11:25 AM 07/29/19 1125 Interpreting Physician: Magnus Dc MD Dictated Date/Time: 07/29 1124 cc: Augustina Fleming; Mehreen Moore MD) XRAY Interpretation: See note - CT/MRI 1 CT Study: Pelvis ([facility] - [address], [address], [place] [address] [facility] - [address], [place] [address] Department of Imaging Patient: JENARO HALEY Date: 07/29/19MR#: [id number] : 1940DM Status: [facility]#: [id number] Age/Sex: 79/MRoom/Bed: Loc: P.ED Ordering Physician: Augustina Fleming Family Physician: Mehreen Moore MD Reason for Procedure: Fall with Left hip pain Signed EXAM: CT PELVIS W/O CONTRAST - 07/29/2019 HISTORY: Fall with Left hip pain TECHNIQUE: CT bony pelvis without contrast COMPARISON: 04/09/2019 CT abdomen/pelvis with IV contrast FINDINGS: There is a fracture of the left femoral neck, with mild impaction. There is no other fracture or dislocation identified. There is retained fecal debris noted in the visualized colon and rectum consistent with constipation with possible rectal fecal impaction. IMPRESSION: Fracture of left femoral neck, with mild impaction. Constipation with possible rectal fecal impaction noted. This exam was performed using automated exposure control, adjustment of mA or kV acc ording to patient size, and/or use of iterative reconstruction technique. Electronically signed by Magnus Dc 07/29/2019 10:52 AM 07/29/19 1052 Interpreting Physician: Magnus Dc MD Dictated Date/Time: 07/29/19 1046 cc: Augustina Fleming; Mehreen Moore MD) CT Results: See note - CONSULTS/PCP/HOSPITALIST Notification #1 *Consult/PCP/Hospitalist*: Atul for Dr. Wilkerson Time Discussed: 12:00 Reason/Comments: Consult Consult Disposition: other (Send to [facility] and they will repair) #2 Consult: Dayanna for Dr. Hurtado Time Discussed: 11:42 Reason/Comments: Admission Consult Disposition: Will see in ED, Admit Departure - Departure Date of Disposition Decision: 07/29/19 Time of Disposition Decision: 11:09 DIAGNOSIS: Hip fracture Qualifiers: Encounter type: initial encounter Fracture type: closed Laterality: left Qual ified Code(s): S72.002A - Fracture of unspecified part of neck of left femur, initial encounter for closed fracture Disposition: ADMITTED INPATIENT 09 Certified Medical Emergency: Emergent Condition: Stable Referrals and Follow-Ups: Mehreen Moore MD [Primary Care Provider] - - Critical Care Note This patient required my direct & personal management of CC.: No Attestation - Physician/ NATE Attestation Patient care was provided by Advanced Practice Provider:: Yes Advanced Practice Provider:: Augustina Fleming Advanced Practice Provider documentation review:: The Mid-level provider documentation, treatment plan and medical decision making was reviewed by the physician who agrees with all treatment and medical decision making by the MLP. The physician spent face to face time with patient:: No Advanced Practice Provider documentation review:: Supervising physician onsite and consulted in the evaluation and care of this patient. The physician did not have a face to face encounter with the patient.
--- NOTE | 2019-07-29 10:54 | Diag Imaging Result Doc PS360 ---
EXAM: CT PELVIS W/O CONTRAST - 07/29/2019 HISTORY: Fall with Left hip pain TECHNIQUE: CT bony pelvis without contrast COMPARISON: 04/09/2019 CT abdomen/pelvis with IV contrast FINDINGS: There is a fracture of the left femoral neck, with mild impaction. There is no other fracture or dislocation identified. There is retained fecal debris noted in the visualized colon and rectum consistent with constipation with possible rectal fecal impaction. IMPRESSION: Fracture of left femoral neck, with mild impaction. Constipation with possible rectal fecal impaction noted. This exam was performed using automated exposure control, adjustment of mA or kV according to patient size, and/or use of iterative reconstruction technique. Electronically signed by Magnus Dc 07/29/2019 10:52 AM
--- NOTE | 2019-07-29 11:28 | Diag Imaging Result Doc PS360 ---
EXAM: CHEST-PORTABLE - 07/29/2019 HISTORY: admit TECHNIQUE: Portable chest COMPARISON: 06/22/2019 FINDINGS: Heart size is normal. There is transvenous cardiac pacemaker again seen. There is some tortuosity of the thoracic aorta similar to prior. Lungs appear clear. There is no pleural effusion or pneumothorax identified. There is in old fracture deformity of the posterior right fifth rib. IMPRESSION: No evidence of acute disease. Electronically signed by Magnus Dc 07/29/2019 11:25 AM
[2019-07-29 12:04] LABS: BASO# 0.03 X1000 (0.0-0.2); BASO% 0.3 % (0.0-0.8); EOS# 0.41 X1000 (0.0-0.7); EOS% 4.4 % (0.0-10.0); HEMATOCRIT 36.2 % (42.0-52.0); HEMOGLOBIN 11.5 g/dL (14.0-18.0); IMM GRAN# 0.03 X1000 (0.0-0.04); IMM GRAN% 0.3 % (0.0-0.5); LYMPH% 13.9 % (20.5-51.1); MCHC 31.8 g/dL (33-37); MCV 100.8 FL (81-99); MONO# 0.78 X1000 (0.11-0.59); MONO% 8.4 % (1.7-9.3); MPV 9.9 FL (7.4-10.4); NEUT# 6.77 X1000 (1.4-6.5); NEUT% 72.7 % (42.2-75.2); PLT 177 X1000 (130-400); RBC 3.59 XMIL (4.7-6.1); WBC 9.32 X1000 (4.8-10.8)
[2019-07-29 12:27] LABS: INR 1.19; PROTIME 15.7 Seconds (11.0-16.0)
[2019-07-29 12:28] LABS: PTT 39.2 Seconds (22.3-41.8)
[2019-07-29] MEDS ORDERED: ZOFRAN IV PRN (12:46)
[2019-07-29 12:56] LABS: ALBUMIN 3.4 g/dL (3.5-5.0); CALCIUM 9.9 mg/dL (8.8-10.2); CREATININE 1.3 mg/dL (0.7-1.2); POTASSIUM 3.5 mmol/L (3.5-5.1); TOTAL BILIRUBIN 0.9 mg/dL (0.20-1.00); TOTAL PROTEIN 7.6 g/dL (6.3-8.3)
[2019-07-29 13:06] LABS: BILIRUBIN URINE NEGATIVE (NEGATIVE); BLOOD URINE NEGATIVE (NEGATIVE); GLUCOSE URINE NEGATIVE (NEGATIVE); KETONE URINE NEGATIVE (NEGATIVE); LEUKOCYTES URINE NEGATIVE (NEGATIVE); NITRITE URINE NEGATIVE (NEGATIVE); PROTEIN URINE NEGATIVE (NEGATIVE); SP GRAVITY URINE 1.015; UROBILINOGEN URINE NORMAL
[2019-07-29 13:07] LABS: CLARITY CLEAR (CLEAR); COLOR YELLOW
[2019-07-29 13:14] LABS: URINE EPITHELIAL CELLS <10 /HPF (<10); URINE SOURCE CATH
--- NOTE | 2019-07-29 13:28 | EKG Report ---
Test Performed on : 07/29/2019 11:21:32 AM Test Reason : admit Blood Pressure : / mmHG Vent. Rate : 074 BPM Atrial Rate : 074 BPM P-R Int : 138 ms QRS Dur : 132 ms QT Int : 418 ms P-R-T Axes : 082 -60 077 degrees QTc Int : 463 ms Atrial-sensed ventricular-paced rhythm Abnormal ECG When compared with ECG of 19-JUN-2019 06:54, Electronic ventricular pacemaker has replaced Sinus rhythm. Unconfirmed Result
[2019-07-29] MEDS ORDERED: NS 1,000 ML IV SCH (14:45)
[2019-07-29] MEDS ORDERED: FLEET MINERAL OIL ENEMA PR ONE (14:49)
[2019-07-29] MEDS ORDERED: FLEET ENEMA PR PRN (14:49)
[2019-07-29] MEDS ORDERED: KEFZOL 1 GM/D5W 1 GM/50 ML IVPB IV ONE (17:55)
--- NOTE | 2019-07-29 17:59 | HISTORY AND PHYSICAL ---
CHIEF COMPLAINT: Fall, left hip pain. HISTORY OF PRESENT ILLNESS: This is an 79-year-old gentleman who presented to the emergency room complaining of left hip pain and inability to bear weight after falling at his home yesterday. He stated that he was trying to step up on scales to weigh, lost his balance and fell. CT of the pelvis revealed fracture of the left femoral neck with mild impaction as well as constipation with possible rectal fecal impaction noted. PAST MEDICAL HISTORY: 1. Paroxysmal atrial fibrillation. 2. Chronic systolic congestive heart failure with an ejection fraction of 20%. 3. 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 4. Benign prostatic hypertrophy. 5. Chronic anticoagulation with Eliquis and aspirin. 6. Chronic anemia. PAST SURGICAL HISTORY: 1. Renal cyst removal. 2. Right lower lobe lobectomy. 3. Back surgery. 4. Bilateral eye lens implant. 5. Permanent pacemaker 2017. SOCIAL HISTORY: He quit smoking in the late 70s. No alcohol or illicit drug use. ALLERGIES: To morphine with "deadly reaction." HOME MEDICATIONS: A list will be obtained by the nursing staff and once verified will review and restart as appropriate. REVIEW OF SYSTEMS: Discussed with patient with pertinent positives stated in the HPI. He denied any syncope, dizziness, chest pain, palpitations, shortness of breath, cough, fever, chills, nausea, vomiting, diarrhea, constipation, black or bloody vomitus or stools, any hematuria, dysuria, frequency, urgency. PHYSICAL EXAMINATION: GENERAL: This is an 79-year-old gentleman who is lying on the stretcher in the emergency room in no distress. VITAL SIGNS: Blood pressure is 101/60 with a heart rate of 80, respirations are 18, temperature is 97.7 degrees oral with room air saturations 93 to 94%. HEENT: Head is normocephalic, atraumatic. Mucous membranes are moist. NECK: Supple with trachea midline. No JVD. CARDIOVASCULAR: Regular rate and rhythm. Ventricular paced on EKG. S1 and S2 are appreciated. He has no lower extremity edema. Calves are nontender bilateral with peripheral pulses palpable x4 extremities. PULMONARY: Breath sounds are clear. No increased work of breathing noted. Chest rise fall symmetric respiration. GASTROINTESTINAL: Abdomen soft, nontender, nondistended. Bowel sounds in all 4 quadrants. GENITOURINARY: He has no CVA or suprapubic tenderness. NEUROLOGIC: He is alert, oriented x3. SKIN: Warm and dry. EXTREMITIES: Left lower extremity is shortened and rotated. LABS: WBC is 9.3 with hemoglobin 11.5, hematocrit 36.2, platelets 177,000. INR is 1.1. Sodium 136, potassium 3.5, BUN 12, creatinine 1.3 with a glucose of 107. Urinalysis is essentially negative. Chest x-ray reveals no evidence of acute disease. CT of the pelvis reveals fracture of the left femoral neck with mild impaction, constipation with possible rectal fecal impaction noted. ASSESSMENT AND PLAN: 1. Left femoral neck fracture with mild impaction. Dr. Wilkerson with Orthopedics has been consulted. The patient will be transferred to [facility] for further orthopedic evaluation and treatment. 2. Acute kidney injury. We will hold any renal toxic medications as he does have an ejection fraction of 20%, will give gentle hydration giving saline at 50 mL/h x1 bag and he can be reevaluated and further IV fluids will be after reevaluation. 3. Paroxysmal atrial fibrillation. Will continue his amiodarone. He will be placed on telemetry. 4. History of chronic anticoagulation. The patient was discharged from the hospital on June 22 with a gastrointestinal bleed. At that time Eliquis was held on discharge. Patient had been instructed to follow up his primary care physician for further instructions on restarting Eliquis. At the time of my interview Mr. Rosen is unsure if he restarted Eliquis or not. Will attempt to call Dr. Zamarripa's office to verify followup instructions. 5. Chronic systolic heart failure with an ejection fraction of 20% aware. 6. 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 7. Benign prostatic hypertrophy aware. 8. Acute mild compression fracture at superior T10 vertebra and acute fracture at T11 superimposed on subacute fracture per CT scan 07/29/2019, aware. Orthopedics has been consulted. Will check a CBC, BMP in the morning. Will update his home medications and continue as appropriate. 9. Hypertension. Will continue his Cozaar. 10. Further treatments pending hospital course. Plan was discussed with Dr. Hurtado. Plan discussed with Dr Hurtado. Dictated by TRUNG Dubose for Konstantin Hurtado MD ADDENDUM: I called the offices of Dr ZAMARRIPA and Dr Henao. The patient did not follow up after discharge 06-22-19 Neither were aware of the GI bleed, nor that he was holding Eliquis. I attempted to call his son and grandson but was unable to reach either. It remains unclear if the patient is taking Eliquis or Aspirin. cc: TRUNG Dubose MD MTDD
--- NOTE | 2019-07-29 18:14 | ORTHOPAEDICS CONSULTATION ---
DATE: 07/29/2019 REASON FOR CONSULTATION: Left hip pain after a fall in the home. HPI: Mr. Rosen is an 79-year-old male with a past medical history of coronary artery disease now with a pacemaker, previous heart attack and chronic lower back pain. Mr. Rosen was at home where he lives with his grandson when he had a fall. He decided not to go the emergency room because he already had a CT scheduled the next day at [facility]. So earlier this morning when he was going for his CT of his lower back he let them know about the hip pain. On the CT film a left femoral neck fracture with mild impaction was found so at that time it was decided he would be admitted to the hospital and worked up for a left hip fracture. Orthopedics has been consulted for management of left hip fracture. ALLERGIES: Morphine. PAST MEDICAL HISTORY: Coronary artery disease, chronic L1 and T12 compression fractures, GI bleed PAST SURGICAL HISTORY: Permanent pacemaker. SOCIAL HISTORY: He denies tobacco, alcohol or illicit drug use. He does have a past history of smoking and alcohol abuse which has been several years. He lives in a home with his grandson. FAMILY HISTORY: Noncontributory. REVIEW OF SYSTEMS: A 10 point review of systems was negative except what was mentioned in the HPI. PHYSICAL EXAM: Vital Signs: Temperature is 98 degrees, pulse is 74, respirations 20, blood pressure is 116/69, he is 94% on room air. General: A 79-year-old man in no acute distress. Neurological: He is alert and oriented x3. CV: Regular rate and rhythm. Pulmonary: Breathing is even and nonlabored. Equal chest expansion. Abdomen: Slightly distended. Extremities: He does have tenderness to palpation over the left hip. He is able to dorsi and plantar flex the foot. He has good sensation the foot. There is no skin ulcerations or abrasions. He has a 1+ pedal pulse. He denies tenderness to palpation any other extremity. Images: A pelvis CT reviewed by Dr. Wilkerson showed a left femoral neck fracture. ASSESSMENT: Left femoral neck fracture valgus impacted. PLAN: We will plan for a percutaneous pinning of this left hip. He is on a blood thinner at home. He believes it is Eliquis. He states his physician put him on this several years ago back in 2002. He said he decided about 3 days ago that he no longer needed it so the patient has stopped taking it 3 days ago. There is really no medical concerns to keep us from doing the surgery so we will plan to do this 1st thing tomorrow. We will make him NPO and get consent. Dr. Wilkerson has discussed risks and benefits with the patient. The family is at the bedside. Risks include but not limited to damage nerves, arteries, veins, malunion, nonunion, hardware related issues, DVT, infection, poor wound healing, continued pain and risk of general anesthesia. We will plan for Mr. Rosen to do a 21 day rehab stay. He will need help with ambulation and mobilization postoperatively. Thank you for the consultation. Dictated by TRUNG Monson for Gabriel Wilkerson MD cc: TRUNG Monson [facility]
[2019-07-29] MEDS ORDERED: MARCAINE 0.25% ONE (22:07)
[2019-07-29] MEDS ORDERED: XYLOCAINE-MPF 2% ONE (22:07)
[2019-07-29] MEDS ORDERED: FENTANYL ONE (23:23)
[2019-07-29] MEDS ORDERED: SENSORCAINE 0.5%-EPI 1:200,000 ONE (23:27)
[2019-07-30] MEDS ORDERED: ROBINUL ONE (00:27)
[2019-07-30] MEDS ORDERED: PITRESSIN ONE ×2 (00:27→00:50)
[2019-07-30] MEDS ORDERED: OFIRMEV 1000 MG/ISOTONIC SOLN 1,000 MG/100 ML BOTTLE ONE (00:27)
[2019-07-30] MEDS ORDERED: XYLOCAINE-MPF 2% ONE (00:27)
[2019-07-30] MEDS ORDERED: NEO-SYNEPHRINE ONE (00:27)
[2019-07-30] MEDS ORDERED: ZOFRAN IV PRN (01:11)
[2019-07-30] MEDS ORDERED: MILK OF MAGNESIA PO PRN (01:11)
[2019-07-30] MEDS: COREG PO SCH ×3 (04:01→20:38)
[2019-07-30] MEDS: VICON-C PO SCH ×2 (04:02→20:33)
[2019-07-30] MEDS: IMURAN PO SCH ×3 (04:03→20:33)
[2019-07-30] MEDS: FLOMAX PO SCH ×3 (04:03→20:34)
[2019-07-30] MEDS: TYLENOL PO SCH ×3 (04:04→18:07)
[2019-07-30 06:56] LABS: BASO# 0.02 X1000 (0.0-0.2); BASO% 0.3 % (0.0-0.8); EOS# 0.39 X1000 (0.0-0.7); EOS% 5.5 % (0.0-10.0); HEMATOCRIT 29.4 % (42.0-52.0); HEMOGLOBIN 9.4 g/dL (14.0-18.0); LYMPH# 1.54 X1000 (1.2-3.4); LYMPH% 21.9 % (20.5-51.1); MCH 31.4 PG (27-31); MCV 98.3 FL (81-99); MONO# 0.84 X1000 (0.11-0.59); MONO% 11.9 % (1.7-9.3); MPV 9.7 FL (7.4-10.4); NEUT# 4.24 X1000 (1.4-6.5); NEUT% 60.4 % (42.2-75.2); PLT 147 X1000 (130-400); RBC 2.99 XMIL (4.7-6.1); RDW 13.6 % (11.5-14.5); WBC 7.03 X1000 (4.8-10.8)
[2019-07-30 07:08] LABS: AGAP 9; CHLORIDE 100 mmol/L (98-107); GLUCOSE 85 mg/dL (70-104); POTASSIUM 3.5 mmol/L (3.5-5.1); SODIUM 132 mmol/L (136-145); TCO2 23 mmol/L (25-35)
[2019-07-30 07:09] LABS: BUN 12 mg/dL (8-22); CALCIUM 8.3 mg/dL (8.8-10.2); COSMO 264; CREATININE 0.9 mg/dL (0.7-1.2); ESTIMATED GFR > 60
--- NOTE | 2019-07-30 07:55 | ORTHOPAEDICS PROGRESS NOTE ---
DATE: 07/29/2019 ORTHOPEDIC PLAN: The patient was seen and examined with Jeanie Hunt. Please see the orthopedic consultation for full history of present illness. The patient sustained a left valgus impacted femoral neck fracture after a same-level fall. He also has a history of some compression fractures in his lower thoracic spine at T10-T11 levels. He has been treated by a physician in [place] for this. He reports history of heart disease with an ejection fracture of 20%. He was taking Eliquis, however, weaned himself off over the last week. He denies any recent heart events. Given patient's fracture pattern, he would benefit from closed reduction, percutaneous pinning of his valgus impacted femoral neck fracture. Risks, benefits, and alternative therapies were discussed with patient regarding surgery. Risks of surgery included, but not limited to risks of bleeding, infection, damage to nerves and vessels around the area, continued pain following surgery, malunion, nonunion, need for revision surgery. There are also risks of anesthesia, including blood clot, stroke, heart attack, even . The patient understands these risks. All questions were answered and informed consent was obtained. We will plan on proceeding to the OR later this evening for closed reduction and percutaneous pinning of the left hip.
--- NOTE | 2019-07-30 09:15 | OPERATIVE NOTE ---
PROCEDURE DATE: 07/30/2019 PREOPERATIVE DIAGNOSIS: Left valgus impacted femoral neck fracture. POSTOPERATIVE DIAGNOSE: Left valgus impacted femoral neck fracture. PROCEDURE: Closed reduction, percutaneous pinning of left femoral neck fracture. DATE OF PROCEDURE: 07/30/2019 SURGEON: Dr. Gabriel Wilkerson. ASSISTANTS: Jeanie Sadler whose presence was necessary for retraction, assistance with reduction of the fracture, placement of implants. ANESTHESIA: General endotracheal anesthesia with a regional block. COMPLICATIONS: None. SPECIMENS: None. DRAINS: None. BLOOD LOSS: 15 mL. IMPLANTS: Synthes 7.3 mm cannulated screws x3 measuring 100 mm, 95 mm and 90 mm. INDICATIONS FOR PROCEDURE: Mr. Rosen is an 79-year-old gentleman who presented to [facility] on July 29, 2019 after sustaining a same-level fall. X-rays demonstrate a valgus impacted femoral neck fracture. Given this fracture pattern, decision was made to proceed to the operating room for closed reduction percutaneous pinning. Risks, benefits, alternative therapies were discussed patient regarding surgery. Risks of surgery include, but not limited to risk of bleeding, infection, damage to nerves, vessels around the area, continued pain following surgery, malunion, nonunion, and need for revision surgery. Also risks of anesthesia including blood clots, stroke, heart attack, even . The patient understands these risks. All questions were answered. Informed consent was obtained. DESCRIPTION OF PROCEDURE: Mr. Rosen was identified by wristband and greeted in preop holding area on 07/30/2019. His left lower extremity to the operative side was then marked in indelible ink per [facility] protocol. Following this, the patient was transferred to the operating room for surgery. Upon entering the OR general endotracheal anesthesia was induced. This time he was transferred in the supine position on the [place] table. All bony prominences were all well padded. The left lower extremity was then prepped and draped in routine sterile fashion. At this time, a formal time-out was performed confirming correct patient, procedure, operative site, operative side and administration of perioperative antibiotics. Everyone was in agreement. The patient received 2 gram Ancef prior to incision. Fluoroscopy was brought in to localize our incision. A 3 cm longitudinal incision was made on the lateral aspect of the femur using a 10 blade knife. Knife was used to dissect through skin, subcutaneous tissue and slit in the ITB and fascia. At this time the guide pin for cannulated screw was then placed 1st starting most inferior and central neck running along the medial calcar. We then placed our anterior superior pin followed by a posterior superior pin. When we were satisfied with position of the pins on AP and lateral x-rays, we then drove these up in the femoral head. A measuring device was used to measure the pins, which found to be 100 mm inferior, 95 mm from the anterior, 90 mm for the posterior. At this time, the lateral cortex was reamed for the inferior screw and the screw was placed in the routine fashion getting excellent bite. We then proceeded with placement of our posterior superior screw in similar fashion. Lastly, the anterior superior screw in similar fashion. At this time, we then took AP and lateral x-rays as well as interval x-rays every 15 degrees to ensure no penetration of the screws in the articular cartilage or subchondral bone. We were satisfied with this. The guide pins were removed and the wound was copiously irrigated with normal saline. We had excellent bite and fixation with all 3 screws. 0 Vicryl suture was used for closure IT band followed by 2-0 Vicryl suture for subcutaneous tissue closure. Emir for skin closure. 20 mL of 0.25% Marcaine with epinephrine were then injected around the incision area. At this time the wound was dressed with Xeroform, 4x4s, Telfa, and a Tegaderm dressing. The patient was then transferred over to hospital stretcher, extubated and taken to recovery in stable condition. There were no acute complications during the procedure. All sponge and sharp counts were correct at conclusion of procedure.
[2019-07-30] MEDS: MIRALAX PO SCH (10:31)
[2019-07-30] MEDS: CORDARONE PO SCH (10:31)
[2019-07-30] MEDS: NEXIUM PO SCH (10:31)
[2019-07-30] MEDS: ICAR-C PO SCH (10:31)
[2019-07-30] MEDS: PERIDEX MT SCH ×2 (10:33→20:34)
[2019-07-30] MEDS: COZAAR PO SCH (10:33)
[2019-07-30] MEDS: OXY IR PO PRN ×2 (10:37→13:40)
--- NOTE | 2019-07-30 15:06 | ORTHOPAEDICS PROGRESS NOTE ---
DATE: 07/30/2019 SUBJECTIVE: No acute events overnight. The patient is doing well postoperatively. He has been tolerating liquids. Reports minimal pain in the left hip. OBJECTIVE: Hematocrit 36. Examination of the left lower extremity shows surgical dressing to be clean, dry, and intact. Thigh and calf are soft and depressible. No fluctuance around the incision site. Minimal pain with log roll of the hip. Motor is intact, EHL, tibialis anterior, gastrocsoleus complex. Sensation intact to light touch, L3-S1. Dorsalis pedis pulse palpable. ASSESSMENT: An 79-year-old male status post closed reduction and percutaneous pinning of the left valgus impacted femoral neck fracture, postoperative day 1. PLAN: 1. Patient can be touchdown weightbearing, left lower extremity. Physical Therapy can work with him on ambulating with a rolling walker. 2. In regards to subacute spine fractures, he will continue to follow up with his physician in [place]. He denies any back pain at this time. These injuries are about 3 months old. 3. Lovenox for deep venous thrombosis prophylaxis. Recommend the patient being sent out on 10 days of Lovenox, followed by 325 mg of aspirin daily x4 weeks. 4. Appreciate hospitalist recommendations. 5. The patient can follow up in clinic in 10 to 14 days for a wound check and staple removal.
--- NOTE | 2019-07-30 16:09 | PROGRESS NOTE ---
DATE: 07/30/2019 SUBJECTIVE: This patient is status post closed reduction and percutaneous pinning of the left valgus impacted femoral neck fracture. He seems to be doing good. I put this patient back on his home medications, most of them. I had a large conversation with the patient about anticoagulation. It looks like he was discharged before without any anticoagulation due to GI bleed, and he was recommended to follow up with his primary care doctor to restart this treatment. As per the patient, he was taking 5 mg of Eliquis twice a day which now has been decreased to 2.5 mg twice a day apparently by his physician. His family yesterday was at the bedside and they agree with this. I do believe the dose of Eliquis has been decreased due to his age and also his weight which is less than 60 kg. He will need anticoagulation anyway for his hip surgery. Likely this patient will need to go also to a rehab center. I will monitor the H and H closely. OBJECTIVE: Vital Signs: Temperature 97.9 degrees, pulse 63, respiratory rate 20, blood pressure 109/66, oxygen saturation 95% on room air. HEENT: Head normocephalic, no trauma. PERRLA. Neck: Supple. No JVD. No masses. Central trachea. Chest: Clear to auscultation. No wheezing. No rales. Abdomen: Soft, nontender, nondistended. No hepatosplenomegaly. Extremities: Left hip pain. The wound looks clean. No signs of infection. No neurovascular issues. Neurological examination: At this moment, this patient is alert. He is oriented. He is following commands. LABORATORY: WBC 7, hemoglobin 9.4, hematocrit 29.4, platelets 147. Sodium 132, potassium 3.5, chloride 100, bicarbonate 23. BUN 12, creatinine 0.9, glucose 85, calcium 8.3. ASSESSMENT AND PLAN: 1. Left femoral neck fracture status post closed reduction and percutaneous pinning, postoperative day #1. He seems to be doing good. We will continue with the same management for now. Physical therapy has been consulted already by Orthopedic Surgery Department, and he has been placed on a liquid diet. Hopefully tomorrow we are going to be able to remove the Cruz catheter and we will advance the diet slowly. 2. History of paroxysmal atrial fibrillation. This patient is on carvedilol, amiodarone and he used to be on Eliquis twice a day 5 mg, but as per the patient his primary doctor decreased that to 2.5 mg oral twice daily. I discussed this again with the patient today, and he states that it has been decreased by his doctor. His family was at the bedside yesterday during the discussion as well. This patient will need anticoagulation anyway for the hip fracture. We will continue to monitor this closely, monitor the hemoglobin and hematocrit. 3. Recent gastrointestinal bleed. He was discharged on 06/22/2019 due to melena. He was instructed to stop the aspirin and Eliquis, and restart this treatment once his doctor evaluated him. As per the patient, the dose has been decreased to half. I do believe this is because of his age and weight as well. 4. Protein calorie malnutrition, severe. Aware. Continue with the diet for now. 5. Chronic obstructive pulmonary disease with pulmonary fibrosis, aware. He is not complaining of respiratory issues at this moment. 6. Chronic systolic congestive heart failure with an ejection fraction of 20%, I will continue with beta blockers. I will continue with ARBS, basically home medication. He does not look overloaded. 7. Benign prostatic hyperplasia, aware. Continue with same management. 8. Chronic anemia. We will monitor for now. Hemoglobin dropped, but we will monitor this on a daily basis. 9. Subacute spine fractures. Apparently this happened 3 months ago. This will be monitored as an outpatient by his doctor. Like I mentioned before, I will restart this patient on Eliquis twice a day, but instead of 5 mg it will be 2.5 b.i.d. As per the patient he has been taking this amount at home and it has been approved by his doctor. I will try to corroborate this information. He will need anticoagulation for this fracture anyway. We will monitor this closely. Hopefully, he will recover and he will go to a rehab center. cc: Braydon Gomez MD
[2019-07-30] MEDS: COLACE PO SCH (20:33)
[2019-07-30] MEDS: ELIQUIS PO SCH (20:33)
[2019-07-30] MEDS: PRAVACHOL PO SCH (20:33)
[2019-07-31] MEDS: TYLENOL PO SCH ×3 (02:53→17:36)
[2019-07-31 06:39] LABS: HEMATOCRIT 31.3 % (42.0-52.0); HEMOGLOBIN 10.2 g/dL (14.0-18.0)
[2019-07-31 07:16] LABS: AGAP 11; BUN 8 mg/dL (8-22); CALCIUM 8.8 mg/dL (8.8-10.2); CHLORIDE 110 mmol/L (98-107); COSMO 287; CREATININE 0.8 mg/dL (0.7-1.2); ESTIMATED GFR > 60; GLUCOSE 98 mg/dL (70-104); POTASSIUM 3.8 mmol/L (3.5-5.1); SODIUM 145 mmol/L (136-145); TCO2 24 mmol/L (25-35)
[2019-07-31] MEDS: ELIQUIS PO SCH ×2 (08:45→22:53)
[2019-07-31] MEDS: IMURAN PO SCH ×2 (08:45→22:54)
[2019-07-31] MEDS: CORDARONE PO SCH (08:45)
[2019-07-31] MEDS: COREG PO SCH ×2 (08:46→22:57)
[2019-07-31] MEDS: FLOMAX PO SCH ×2 (08:46→22:54)
[2019-07-31] MEDS: PERIDEX MT SCH ×2 (08:46→22:54)
[2019-07-31] MEDS: NEXIUM PO SCH (08:46)
[2019-07-31] MEDS: COZAAR PO SCH (08:46)
[2019-07-31] MEDS: MIRALAX PO SCH (08:46)
[2019-07-31] MEDS: ICAR-C PO SCH (08:46)
[2019-07-31] MEDS: OXY IR PO PRN (08:56)
--- NOTE | 2019-07-31 11:22 | PROGRESS NOTE ---
DATE: 07/31/2019 SUBJECTIVE: This patient is status post closed reduction and percutaneous pinning of the left valgus impacted femoral neck fracture. He seems to be doing good. He is completely awake, alert, and oriented. We will continue with the same management for now. We should be discharging this patient to a rehab center once we have a bed available and orthopedic surgery is okay with that. OBJECTIVE: Vital Signs: Temperature 98.3 degrees, pulse 63, respiratory rate 18, blood pressure 115/62, and oxygen saturation 95% on room air. HEENT: Head normocephalic. No trauma. PERRLA. Neck: Supple. No JVD. No masses. Central trachea. Chest: Clear to auscultation with some crepitus at the bases. Abdomen: Soft, nontender, nondistended. No hepatosplenomegaly. Extremities: Left hip pain. The wound looks clean. No signs of infection. A little bit edematous. No neurovascular issues. He is able to move his toes, ankle, and bend his knee. Neurological: The patient is alert. He is oriented. He is following commands. He moves all 4 extremities spontaneously. LABORATORY: Hemoglobin 10.2, hematocrit 31.3, sodium 145, potassium 3.8, chloride 110, bicarbonate 24, BUN 8, creatinine 0.8 glucose 98, and calcium 8.8. ASSESSMENT AND PLAN: 1. Left femoral neck fracture status post closed reduction and percutaneous pinning postoperative day #2. He seems to be doing good. We will continue with the same management for now. Physical Therapy has been consulted already by Orthopedic Surgery. I will advanced his diet. 2. History of paroxysmal atrial fibrillation. This patient is on carvedilol, amiodarone, and he used to be on Eliquis twice a day 5 mg. I have been told by the patient that the dose has been decreased to 2.5 mg orally twice a day. I have discussed this with the patient every single day. Today, we will try to contact his outpatient doctor to corroborate this information. At any rate,, this patient will need to be on anticoagulation for his hip fracture. 3. Recent GI bleed. He was discharged on 06/22/2019 due to melena. He was instructed to stop aspirin and Eliquis, and restart this treatment once his , his outpatient doctor evaluated him. As per the patient, like I mentioned before, the dose has been decreased by half. I do believe this is because of the recent GI bleed, age, and his weight as well. 4. Protein calorie malnutrition, severe. I will advance the diet. He is getting protein shakes. 5. 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 Aware. He is not complaining of respiratory issues at this moment. 6. Chronic systolic congestive heart failure with ejection fraction of 20%. I will continue with beta blockers, and the rest of the treatment and basically his home medications. He does not seem to be fluid overloaded. 7. BPH. Continue with same management. 8. Chronic anemia. We will monitor for now, better compared with yesterday. 9. Subacute spine fracture. Apparently, this happened 3 months ago. This will be monitored as an outpatient by his doctor. 10. The patient seems to be stable pending rehab center placement. cc: Braydon Gomez MD
--- NOTE | 2019-07-31 19:53 | ORTHOPAEDICS PROGRESS NOTE ---
DATE: 07/31/2019 SUBJECTIVE: No acute events overnight. Patient is doing well. States pain is improved. He walks at physical therapy in the morning out in the hallway. He has been tolerating a diet. He states he would like to try to go home with home health physical therapy if possible. He lives with his grandson who works 3rd shift and is around to help during the day. LABORATORY DATA: Hematocrit 31.3. OBJECTIVE: Vital Signs: Afebrile. Vital signs stable. Left lower extremity: Examination of the left leg reveals dressing to be clean, dry, intact. Thigh and calf are soft and compressible. Minimal pain with log roll of the left hip. Neurovascularly intact. ASSESSMENT: An 79-year-old male status post closed reduction and percutaneous pin fixation, left femoral neck fracture. PLAN: 1. Patient to continue to be touchdown weightbearing with a rolling walker. Physical therapy, continue to mobilize. 2. Ice left lower extremity as needed. 3. Eliquis for DVT prophylaxis. Patient will likely need 6 weeks of chemical DVT prophylaxis upon discharge either Eliquis or aspirin from an orthopedic standpoint. 4. Disposition per primary team. The patient would benefit from a residential facility. However, states he would like to try to go home with home health physical therapy. As long as he has good help at the house and meets PT goals while in the hospital, I think this is reasonable. 5. I will see him in clinic in 10 to 14 days for wound check.
[2019-07-31] MEDS: PRAVACHOL PO SCH (22:53)
[2019-07-31] MEDS: VICON-C PO SCH (22:53)
[2019-07-31] MEDS: COLACE PO SCH (22:54)
[2019-08-01] MEDS: TYLENOL PO SCH ×2 (02:00→08:31)
[2019-08-01 06:59] LABS: HEMATOCRIT 32.5 % (42.0-52.0); HEMOGLOBIN 10.5 g/dL (14.0-18.0)
[2019-08-01 07:11] LABS: AGAP 9; BUN 7 mg/dL (8-22); CALCIUM 8.8 mg/dL (8.8-10.2); CHLORIDE 107 mmol/L (98-107); COSMO 274; CREATININE 0.8 mg/dL (0.7-1.2); ESTIMATED GFR > 60; GLUCOSE 102 mg/dL (70-104); POTASSIUM 3.2 mmol/L (3.5-5.1); SODIUM 138 mmol/L (136-145); TCO2 22 mmol/L (25-35)
[2019-08-01 07:37] VITALS: BP 118/72
[2019-08-01] MEDS: FLOMAX PO SCH (08:30)
[2019-08-01] MEDS: ELIQUIS PO SCH (08:30)
[2019-08-01] MEDS: COREG PO SCH (08:31)
[2019-08-01] MEDS: ICAR-C PO SCH (08:31)
[2019-08-01] MEDS: NEXIUM PO SCH (08:31)
[2019-08-01] MEDS: MIRALAX PO SCH ×2 (08:31→09:00)
[2019-08-01] MEDS: IMURAN PO SCH (08:31)
[2019-08-01] MEDS: PERIDEX MT SCH (08:31)
[2019-08-01] MEDS: CORDARONE PO SCH (08:31)
[2019-08-01] MEDS: COZAAR PO SCH (08:32)
[2019-08-01] MEDS ORDERED: KLOR-CON PO ONE (09:18)
--- NOTE | 2019-08-01 11:21 | DISCHARGE SUMMARY ---
ADMISSION DATE: 07/29/2019 DISCHARGE DATE: DISCHARGE DIAGNOSIS: 1. Left femoral neck fracture, status post closed reduction and percutaneous pinning. 2. History of paroxysmal atrial fibrillation. 3. Recent gastrointestinal bleed. 4. Protein calorie malnutrition. 5. 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 6. Chronic systolic congestive heart failure with ejection fraction of 20%. 7. Benign prostatic hypertrophy. 8. Chronic anemia. 9. Subacute spine fracture. PROCEDURES PERFORMED: 1. Pelvis CT scan dated 07/29/2019. Impression: Fracture of the left femoral neck with mild impaction. 2. Chest x-ray dated 07/29/2019. Impression: No evidence of acute disease. CONSULTS: Orthopedic surgery department, Dr. Gabriel Wilkerson. HOSPITAL COURSE: An 79-year-old, male with a past medical history of paroxysmal atrial fibrillation, chronic systolic congestive heart failure with an ejection fraction of 20% on echocardiogram done on 01/24/2018, COPD with pulmonary fibrosis, BPH, chronic anticoagulation with Eliquis and aspirin, chronic anemia. He recently was discharged from this hospital on 06/22/2019 due to melena. It is documented that there was an EGD on 06/20/2019 that showed normal esophagus, mild gastritis in the gastric antrum with biopsies. Otherwise, no evidence of AVM, ulcers, varices, or tumors, and the stomach was normal. As per the patient, he was placed back on Eliquis but instead of 5 mg twice a day, he was placed back on half of that dose at 2.5 mg twice a day, which I believe is because of the history of GI bleed, age, and low weight. On this opportunity, he presented to the emergency department and was admitted on 07/29/2019. He was complaining of left hip pain and inability to bear weight after falling at his home the day before. He states that he was trying to step up on scales to weigh, he lost his balance, and fell. CT of the pelvis revealed a fracture of the left femoral neck with mild impaction, as well as constipation with possible rectal fecal impaction noted. In fact, impaction noted. He was evaluated by the orthopedic surgery department. He had a surgery on 07/30/2019. Dr. Wilkerson did a closed reduction and percutaneous pinning of the left femoral neck fracture. He tolerated the well the procedure. Hemoglobin and hematocrit have been stable afterwards. I put this patient back on his home medication including his Eliquis, low dose like the patient said, since he will need anticoagulation anyway for this fracture to avoid blood clots. He will be discharged to a rehab center. I put in my documentation that they need to contact his primary care doctor and cardiology about taking both aspirin and Eliquis. For now, I will continue only with Eliquis. Like I mentioned before, his hemoglobin has been stable, a little bit hypokalemic today and I will replace the potassium. PHYSICAL EXAMINATION: Vital Signs: Temperature 97.8 degrees, pulse 65, respiratory rate 18, blood pressure 118/72, oxygen saturation 97% on room air. HEENT: Head normocephalic. No trauma. PERRLA. Neck: Supple. No JVD. No masses. Central trachea. Chest: Clear to auscultation. No wheezing. No rales. Abdomen: Soft, nontender, nondistended. No hepatosplenomegaly. Extremities: Left hip pain, a little bit painful to mobilization and palpation. No signs of infection. Neurological Examination: He is alert. He is moving all 4 extremities spontaneously. No focal deficits. LABORATORY: WBC 10.5, hemoglobin 32.5. Sodium 138, potassium 3.2, chloride 107, bicarbonate 22, BUN 7, creatinine 0.8, glucose 102, calcium 8.8. DISCHARGE MEDICATIONS: Amiodarone 200 mg p.o. daily, Eliquis 2.5 mg p.o. b.i.d., azathioprine 50 mg p.o. b.i.d., Coreg 6.25 mg p.o. b.i.d., docusate 200 mg p.o. at bedtime, esomeprazole 40 mg p.o. daily, folic acid 1 mg p.o. daily, infliximab 100 mg IV as ordered, iron 100/vitamin-C tablet 1 tablet p.o. daily, losartan 25 mg p.o. daily, milk of magnesia 30 mL p.o. daily as needed for constipation, oxycodone IR 5 mg p.o. q.3 hours as needed for pain, MiraLAX 17 g p.o. daily, pravastatin 80 mg p.o. at bedtime, Carafate 1 g p.o. 4 times a day, Flomax 0.4 mg p.o. b.i.d., and Cerefolin caplet 1 caplet p.o. at bedtime. I had a large discussion with the patient's anticoagulation in front of the family the first or second day of admission. The patient states that he was started back on half of the dose, which makes sense due to his age, weight, and history of bleeding. He will need to contact his social media senior associate and primary doctor this week to find out if he can be placed back on both aspirin and Eliquis. He seems to understand. He will be discharged to a rehab center. FOLLOWUP: Follow up with Dr. Wilkerson in 10 to 14 days. Like I mentioned before, call cardiology and/or primary doctor to find out about his medications and follow up with them. Time discharging this patient, 30 minutes. cc: Braydon Gomez MD
--- NOTE | 2019-08-01 15:52 | ORTHOPAEDICS PROGRESS NOTE ---
DATE: 08/01/2019 SUBJECTIVE: No acute events overnight. Patient has been doing well. Pain is controlled. He ambulated in the [place] with physical therapy yesterday. Tolerating diet. OBJECTIVE: Hematocrit 33. Examination of left lower extremity shows surgical dressing is clean, dry, intact. Thigh is soft and compressible. Neurovascular intact. Negative Homans' sign. Calf soft. ASSESSMENT: 79-year-old male status post CRPP, left hip fracture. PLAN: 1. Touchdown weightbearing with rolling walker with physical therapy. 2. Eliquis for DVT prophylaxis. He will need a total about 6 weeks of chemical DVT prophylaxis for his hip fracture. 3. Ice left lower extremity p.r.n. 4. Appreciate hospitalist recommendations. DISPOSITION: Patient will be discharged to a half-way facility in [place] once bed is available. He will follow up with me in clinic in 10 to 14 days for wound check and x-rays.
== END 2019-08-01 11:51 | DRG 480 ==
LOC: P.ED 10:02 → 4N 14:07 → SUATTDRO 14:07
PROVIDERS: ATTEND Internal Medicine

== ENCOUNTER 2019-08-12 22:10 | Inpatient (IN) ==
[2019-08-12] MEDS ORDERED: NS 1,000 ML IV SCH (23:45)
[2019-08-12] MEDS ORDERED: OXY IR PO PRN (23:46)
[2019-08-13 00:16] LABS: BASO# 0.01 X1000 (0.0-0.2); BASO% 0.1 % (0.0-0.8); EOS# 0.03 X1000 (0.0-0.7); EOS% 0.3 % (0.0-10.0); HEMATOCRIT 32.1 % (42.0-52.0); IMM GRAN# 0.02 X1000 (0.0-0.04); IMM GRAN% 0.2 % (0.0-0.5); LYMPH# 1.23 X1000 (1.2-3.4); LYMPH% 12.1 % (20.5-51.1); MCH 31.3 PG (27-31); MCHC 31.2 g/dL (33-37); MCV 100.6 FL (81-99); MONO# 0.86 X1000 (0.11-0.59); MONO% 8.5 % (1.7-9.3); MPV 8.2 FL (7.4-10.4); NEUT# 7.99 X1000 (1.4-6.5); NEUT% 78.8 % (42.2-75.2); PLT 216 X1000 (130-400); RBC 3.19 XMIL (4.7-6.1); RDW 14.4 % (11.5-14.5); WBC 10.14 X1000 (4.8-10.8)
[2019-08-13 00:26] LABS: INR 1.26
[2019-08-13 01:04] LABS: AGAP 9; ALB/GLOB RATIO 0.8; ALBUMIN 3.1 g/dL (3.5-5.0); ALKALINE PHOSPHATASE 85 U/L (32-122); BUN 12 mg/dL (8-22); CALCIUM 9.6 mg/dL (8.8-10.2); CHLORIDE 106 mmol/L (98-107); COSMO 282; CREATININE 0.9 mg/dL (0.7-1.2); ESTIMATED GFR > 60; GLUCOSE 117 mg/dL (70-104); GOT 21 U/L (10-34); GPT 11 U/L (10-44); POTASSIUM 3.6 mmol/L (3.5-5.1); SODIUM 141 mmol/L (136-145); TCO2 26 mmol/L (25-35); TOTAL BILIRUBIN 0.38 mg/dL (0.20-1.00); TOTAL PROTEIN 7.2 g/dL (6.3-8.3)
[2019-08-13] MEDS ORDERED: DILAUDID IV PRN (03:11)
[2019-08-13] MEDS: ZOSYN 3.375 GM in NS 50 ML IV SCH ×4 (04:35→23:19)
[2019-08-13] MEDS: CARAFATE PO SCH ×4 (06:08→20:08)
--- NOTE | 2019-08-13 06:15 | HISTORY AND PHYSICAL ---
CHIEF COMPLAINT: Abdominal pain, chest pain that radiates through his back. HISTORY OF PRESENT ILLNESS: Mr. Rosen is an 79-year-old male who has been here recently and quite frequently. His last admission was 07/29/2019. He had a left hip fracture. Before that he was here related to a GI bleed. He sees Dr. Mehreen Moore, outpatient. He presented tonight to [facility]'s emergency room related to chest pain, abdominal pain that radiated through to his back. He did not have any shortness of breath, nausea, vomiting, diarrhea, diaphoresis. A CT scan was completed at [facility] that showed acute cholecystitis. He was sent to [facility] for surgical consultation. He will be admitted to the medical floor for further evaluation and treatment. PAST MEDICAL HISTORY: Paroxysmal atrial fibrillation, chronic systolic congestive heart failure with an ejection fraction of 20%, chronic obstructive pulmonary disease with pulmonary fibrosis, BPH, chronic anticoagulation with Eliquis, chronic anemia, GI bleed. PREVIOUS SURGICAL HISTORY: 1. Hip pinning. 2. Left percutaneous hip pining. 3. Right lower lobectomy. 4. Back surgery. 5. Bilateral eye lens replacement. 6. Permanent pacemaker 2017. SOCIAL HISTORY: Quit smoking in the 70s. No alcohol or illicit drugs. FAMILY HISTORY: Father had a myocardial infarction at 62. Mother had a stroke at 70. One brother had myocardial infarction at 80, another brother at 64 had a myocardial infarction. Another brother had cancer of unknown origin due to advanced stage when it was found. Sister of lupus at 67. Has 3 more living siblings; 2 brothers, 79 and 82, one sister age 70. ALLERGIES: MORPHINE, HAS AN ANAPHYLACTIC REACTION. HOME MEDICATIONS: A list has not been fully reconciled. Believe the patient does take: 1. Flomax 0.4 mg p.o. b.i.d. ] 2. Carafate 1 gram p.o. 4 times a day. 3. Coreg 6.25 mg p.o. b.i.d. 4. Amiodarone 200 mg p.o. daily. 5. Pravachol 80 mg p.o. at bedtime. 6. I also believe he takes Eliquis. I am unsure about the dose, and I am unsure if he takes aspirin at this time. 7. Oxycodone 5 mg p.r.n. 8. Multivitamin p.o. at bedtime. 9. Miralax 17 g daily. 10. Milk of magnesia 30 mg p.o. daily. 11. Cozaar 25 mg p.o. daily. 12. Remicade 100 mg IV as ordered. 13. Folic acid 1 mg p.o. daily. 14. Nexium 40 mg p.o. daily. 15. Colace 200 mg p.o. at bedtime. 16. Imuran 50 mg p.o. b.i.d. These medications again are being reconciled by nursing. REVIEW OF SYSTEMS: A 14 point review of systems was conducted with the patient, and pertinent positives listed above in HPI. All other systems were reviewed and found to be negative. PHYSICAL EXAMINATION: VITAL SIGNS: Temperature 97.5, pulse 59, respirations 12, blood pressure 115/57, oxygen saturation 97% on room air. GENERAL: Pleasant 79-year-old male lying in the medical floor bed. He is complaining of pain, however, he is in no acute distress. He is alert and oriented x3. Answers all questions appropriately. HEENT: Head is atraumatic, normocephalic. Pupils are equal, round, react to light. Extraocular eye movements are intact. Sclerae anicteric. Conjunctiva is pink. Oral mucosa is moist. NECK: Supple. No JVD. No thyromegaly. Trachea is midline. No cervical lymphadenopathy. CARDIAC: Irregularly irregular. No murmurs, gallops, rubs. LUNGS: Fine crackles noted throughout the air pfeiffer. No rhonchi. No wheezing. Slightly decreased bilaterally. Symmetric rise and fall respirations. ABDOMEN: Soft, nondistended. Acutely tender in the right upper quadrant. Positive Del Valle's sign. Bowel sounds decreased all 4 quadrants. No pulsatile masses or organomegaly. EXTREMITIES: No clubbing, cyanosis or edema. INTEGUMENTARY: Warm, dry and intact left upper hip incision. Mild erythema at the site. The fifi have been removed. NEUROLOGICAL: Alert and oriented x3. Cranial nerves 2-12 grossly intact. DIAGNOSTIC DATA: A CT from [facility] showed acute cholecystitis. LABORATORY DATA: WBC 10.14, hemoglobin 10, hematocrit 32.1, platelet count 216. INR 1.26. Sodium 141, potassium 3.6, chloride 106, carbon dioxide 26, BUN 12, creatinine 0.9, glucose 117. ASSESSMENT AND PLAN: 1. Acute cholecystitis. Will start patient on Zosyn 3.375 g IV q.6h. Check blood cultures. Will give him Dilaudid 0.5 mg IV q.4h. p.r.n. for pain. 2. Chronic atrial fibrillation. Continue amiodarone and beta chucky. I am unsure at this time if he is on Eliquis and aspirin. Nursing is reconciling home medications. This will be held at any rate as surgery will be consulted related to the cholecystitis. 3. Hyperlipidemia. Continue pravastatin. 4. Recent gastrointestinal bleed. Continue Carafate. 5. Benign prostatic hypertrophy. Continue Flomax. Further recommendations based on patient's clinical course. Dictated by TRUNG Barcenas for Andres Olivo MD I have performed a face to face diagnostic evaluation. Labs/ Xrays- reviewed. Exam- Chest- clear, CV- regular, Abd- RUQ tenderness. A/P- Acute Cholecystitis- Admit, NPO, pain control,Surgery consult. Dr. Olivo cc: TRUNG Barcenas MD [facility]
[2019-08-13] MEDS: CORDARONE PO SCH ×2 (08:17→15:54)
[2019-08-13] MEDS: FLOMAX PO SCH ×2 (08:17→20:07)
[2019-08-13] MEDS: COREG PO SCH ×2 (08:17→20:08)
[2019-08-13] MEDS ORDERED: LOVENOX SUBQ ONE (08:42)
--- NOTE | 2019-08-13 10:34 | EKG Report ---
Test Performed on : 08/13/2019 10:27:46 AM Test Reason : pre op eval Blood Pressure : / mmHG Vent. Rate : 058 BPM Atrial Rate : 058 BPM P-R Int : 138 ms QRS Dur : 126 ms QT Int : 610 ms P-R-T Axes : 048 -63 -53 degrees QTc Int : 598 ms Atrial-sensed ventricular-paced rhythm Abnormal ECG When compared with ECG of 29-JUL-2019 11:21, (Unconfirmed) Vent. rate has decreased BY 16 BPM Confirmed by Amy VENEGAS, Toney Bai ([id number]) on 08/13/2019 11:58:44 AM
--- NOTE | 2019-08-13 12:02 | GENERAL SURGERY CONSULTATION ---
DATE: 08/13/2019 REASON FOR CONSULTATION: Cholecystitis. HISTORY OF PRESENT ILLNESS: This is an 79-year-old male who recently underwent left hip fracture repair by Dr. Wilkerson on 07/30/2019. He subsequently went to rehab, and then yesterday developed severe right upper abdominal pain radiating up into his chest with associated nausea. He was seen at [facility] with CT scan showing acute cholecystitis. He was then admitted here for further evaluation and treatment. He says the pain is worse with movement. It is lessened with lying still. He denies fever, diarrhea, constipation. PAST MEDICAL HISTORY: Paroxysmal atrial fibrillation, chronic systolic congestive heart failure, COPD with pulmonary fibrosis, BPH, chronic anemia, history of GI bleed. PAST SURGICAL HISTORY: Left hip closed reduction and pinning, right lower lobectomy, back surgery, lens replacement, and pacemaker placement. HOME MEDICATIONS: Flomax, Carafate, Coreg, amiodarone, Pravachol, Eliquis (last dose yesterday), oxycodone, multivitamin, MiraLAX, milk of magnesia, Cozaar, Remicade, folic acid, Nexium, Colace, Imuran. ALLERGIES: Morphine. FAMILY HISTORY: Positive for coronary artery disease, unknown cancer, lupus. These were found in his parents and brother and sister. REVIEW OF SYSTEMS: Ten systems were reviewed and negative, except as noted above. PHYSICAL EXAMINATION: Vital Signs: Temperature 97.8 degrees, pulse 59, respirations 17, blood pressure 116/61, O2 saturation 98%. General: Elderly, frail-appearing male, who appears somewhat ill, but nontoxic. General: He is awake, alert, and oriented x3. No acute distress. HEENT: Normocephalic, atraumatic. Extraocular muscles intact. Pupils equal, round, reactive to light. Sclerae anicteric. Mucous membranes are a little dry. Neck: Supple. No thyromegaly. Lymphatics: No cervical, supraclavicular, or periumbilical lymph nodes appreciated. CV: Irregularly irregular. Respiratory: Bilateral equal breath sounds. No increased work of breathing. Gastrointestinal: Soft, nondistended, but exquisitely tender in the right upper quadrant. No organomegaly or mass. No hernias. Extremities: No clubbing, cyanosis, or edema. Skin: Warm and dry. No rash. Neurologic: Cranial nerves II through XII are grossly intact. IMAGING: There is a report of a CT scan at [facility] showing acute cholecystitis, but I do not have that report for review at this time. LABORATORY DATA: White blood cell count 10, hemoglobin 10, hematocrit 32. INR 1.26. Electrolytes were reviewed and unremarkable. Liver function tests are normal. ASSESSMENT AND PLAN: An 79-year-old male with apparent acute cholecystitis and significant cardiac and pulmonary disease history. We will keep him nothing by mouth. He is on Zosyn. We will provide pain medicine, and we are planning laparoscopic cholecystectomy versus open cholecystectomy tomorrow. We will wait until tomorrow due to the recent Eliquis dose. I will also consult with Cardiology for any risk management. I did discuss the specific risks of laparoscopic versus open cholecystectomy with the patient, including bleeding, infection, injury to surrounding organs, such as the bile duct or intestines, cardiopulmonary complications, such as heart failure, heart attack, and respiratory failure, and other imponderables. He understands and agrees to proceed. Thank you for the consultation. cc: MD Andres Donald MD
--- NOTE | 2019-08-13 12:11 | CARDIOLOGY CONSULTATION ---
DATE: 08/13/2019 REASON FOR CONSULTATION: Cardiology was consulted. The patient is going to have surgery for gallbladder removal and acute cholecystitis. Mr. Rosen is an 79-year-old gentleman who was admitted recently on 07/29/2019, and had a left hip fracture. Before that, he was here with GI bleed. He was transferred to the rehab facility, and subsequently had an episode of abdominal discomfort radiating through to the back, and was taken to [facility]. CT scan showed acute cholecystitis. Patient was transferred to [facility]. Surgery has been consulted, and surgery is planned. From a cardiac standpoint, he has significant cardiac history. Denies chest pain suggestive of angina. He does not complain of shortness of breath. He also has history of heart failure. REVIEW OF SYSTEMS: A 14 point Review of Systems was done.Cardiovascular: As above. Gastrointestinal System: As above. Central nervous system: No focal weakness to suggest a CVA or TIA. Genitourinary: There is no dysuria or hematuria. PAST SURGICAL HISTORY: Recent surgical history includes left hip percutaneous pinning. Other surgeries in the past include right lower lobectomy, back surgery, and bilateral cataract surgery. PAST MEDICAL HISTORY: Coronary artery disease, myocardial infarction in 1993, PCI and [place] stent placement to left anterior descending artery. Subsequently, he had stress test, which revealed fixed defect. Ischemic cardiomyopathy with ejection fraction of 20%. History of heart failure. Status post [facility] AICD placement. Hypertension. Hyperlipidemia. Chronic anemia. Degenerative joint disease. Rheumatoid arthritis. ALLERGIES: He is allergic to morphine. HOME MEDICATIONS: 1. Flomax 0.4. 2. Carafate. 3. Coreg 6.25 b.i.d. 4. Amiodarone 200 mg a day. 5. Pravachol 80. 6. Eliquis as directed. 7. Cozaar 25 mg. 8. Remicade. 9. Folic Acid. 10. Nexium 40. 11. Imuran 50 b.i.d. PHYSICAL EXAMINATION: On examination, blood pressure was 115/56. Jugular venous pressure was normal. First and second heart sounds were heard. There was no murmurs or gallop. Respiratory: Normal air entry anteriorly. Mild decreased breath sounds posteriorly. Abdomen: Tender. Central nervous system: Alert and oriented, was moving all 4 extremities. Extremities: Examination of extremities revealed no pedal edema. HEENT: Atraumatic. Pupils were reacting to light. LABORATORY: WBC 10.4, hemoglobin 10, hematocrit 32, and platelet count of 216,000. INR 1.2. Sodium 141, potassium 3.6, BUN 12, and creatinine 0.9. ASSESSMENT AND PLAN: Mr. Geovani Rosen is an 79-year-old gentleman who was recently admitted here and underwent pinning secondary to fracture of his hip on the left side. He went to rehab and had severe abdominal discomfort. Went to the [facility], and subsequently transferred here. He has acute cholecystitis, and surgery is planned. Would recommend proceeding with surgery. He has known ischemic cardiomyopathy with severe LV dysfunction, and ejection fraction of 20%. He is currently euvolemic. Would recommend judicious IV fluid usage intraoperatively as well as postoperatively. He also has history of COPD, pulmonary fibrosis, coronary artery disease, myocardial infarction in the past, stent placement to left anterior descending artery, and hypertension. He is on Eliquis which has been held. He is on other cardiac medications including Coreg, amiodarone and Pravachol. Would recommend starting medications postoperatively. Thank you for the consult. We will follow in hospital course. cc: MD Andres Everett MD
--- NOTE | 2019-08-13 16:21 | PROGRESS NOTE ---
DATE: 08/13/2019 SUBJECTIVE: Today Mr. Rosen continues to have remarkable pain in the right upper quadrant. OBJECTIVE: Vital signs: Blood pressure is 110/58, pulse of 59, respiration is 16, temperature is 98 degrees. General exam: Mr. rosen is an 79-year-old gentleman. He is in bed in no distress. HEENT: Mucosa is pink and moist. Anicteric. Acyanotic. Neck: Supple. Chest: Good air entry bilateral. No crepitations. No rhonchi. Cardiovascular: Regular rate and rhythm. Abdomen: Soft. There is a lot of tenderness in the right upper quadrant. There is some guarding and rebound. Bowel sounds present. Extremities: No pedal edema. Central nervous system: Patient is awake, alert, and oriented. LABORATORY DATA: CBC from yesterday shows microcytic anemia. Chemistry is completely within normal range. TSH is normal. IMAGING STUDIES: From [facility] seems to suggest acute cholecystitis. Review of echocardiogram from our facility here and from 2018 suggests ejection fraction of 20%. Severe with thinning and hyper echogenicity of the anterior wall, as well as akinesis. There was also some dyskinesis noted in the apex. This was all suggestive of OR. ASSESSMENT: 1. Acute abdomen secondary to acute cholecystitis. Surgery is on board. There is a plan for possible gallbladder removal laparoscopically tomorrow. 2. History of congestive heart failure, currently euvolemic. The patient is actually slightly volume depleted and he is getting gentle fluid. 3. Chronic atrial fibrillation, currently rate controlled. The patient is on amiodarone and beta chucky. 4. Chronic anticoagulation with Eliquis. This has been withheld because of surgery plan. The patient has at least 3 of Girma Vasc score. 5. We will resume anticoagulation once there is adequate hemostasis after surgery. 6. Dyslipidemia. 7. Severe dilated ischemic cardiomyopathy. The patient is currently asymptomatic. The patient has been evaluated by Cardiology for perioperative cardiac evaluation. cc: MD Andres Whitmore MD
[2019-08-13] MEDS: DILAUDID IV PRN (18:28)
[2019-08-13] MEDS: PRAVACHOL PO SCH (20:07)
[2019-08-14] MEDS: DILAUDID IV PRN ×2 (01:39→19:46)
[2019-08-14] MEDS: ZOSYN 3.375 GM in NS 50 ML IV SCH ×4 (04:58→21:17)
[2019-08-14] MEDS: CARAFATE PO SCH ×4 (08:15→21:18)
[2019-08-14] MEDS: COREG PO SCH ×2 (08:15→21:18)
[2019-08-14] MEDS: FLOMAX PO SCH ×2 (08:15→21:18)
[2019-08-14] MEDS: CORDARONE PO SCH (08:16)
[2019-08-14] MEDS ORDERED: DIPRIVAN 1% ONE (09:53)
[2019-08-14] MEDS ORDERED: FENTANYL ONE (09:53)
[2019-08-14] MEDS ORDERED: QUELICIN (DOSE) ONE (09:56)
[2019-08-14] MEDS ORDERED: ZOFRAN ONE (09:56)
[2019-08-14] MEDS ORDERED: ZEMURON ONE (09:56)
[2019-08-14] MEDS ORDERED: SENSORCAINE 0.25%/EPI 1:200,000 ONE (12:16)
[2019-08-14] MEDS ORDERED: SODIUM CHLORIDE 0.9% ONE (12:16)
[2019-08-14] MEDS ORDERED: LR 1,000 ML ONE ×2 (12:16→13:53)
[2019-08-14] MEDS ORDERED: AMIDATE ONE (12:36)
[2019-08-14] MEDS ORDERED: NEO-SYNEPHRINE ONE (12:52)
--- NOTE | 2019-08-14 13:48 | Diag Imaging Result Doc PS360 ---
EXAM: OPERATIVE CHOLANGIOGRAM 08/14/2019 HISTORY: CHOLECYSTECTOMY TECHNIQUE: Intraoperative cholangiogram COMMENT: There are no filling defects or evidence of obstruction. There is contrast in the duodenum. IMPRESSION: No evidence of retained stones. Electronically signed by Ran Branch 08/14/2019 1:46 PM
[2019-08-14] MEDS ORDERED: BRIDION ONE (13:54)
--- NOTE | 2019-08-14 15:26 | PROGRESS NOTE ---
DATE: 08/14/2019 SUBJECTIVE: This morning, Mr. Rosen referred to be doing fairly the same. Some pain in the abdomen, especially at the right upper quadrant. He is waiting for surgery. OBJECTIVELY: Vital signs: Blood pressure is 117/62, pulse of 69, respiration is 20, temperature 99.2 degrees. The patient was saturating 98%. General: Mr. Rosen is an 79-year-old male. He was in bed, no distress. Mucosa is pink and moist. Anicteric. Acyanotic. Neck: Supple. Chest: Clear to auscultation. No crepitations. No rhonchi. Cardiovascular: Regular rate and rhythm. Gastrointestinal: Abdomen is soft. Still tenderness in the right upper quadrant with some guarding and rebound. Extremities: No pedal edema. Central nervous system: Patient is awake, alert, oriented. LABORATORY DATA: None for today. IMAGING STUDIES: None for today. ASSESSMENT AND PLAN: 1. Acute abdomen secondary to acute gallstone-induced cholecystitis. The patient is pending laparoscopic gallbladder removal today. 2. History of atrial fibrillation, currently euvolemic. 3. Chronic atrial fibrillation, currently rate controlled. 4. Chronic anticoagulation with Eliquis. This has been withheld for surgery. 5. Dyslipidemia. 6. Severe dilated ischemic cardiomyopathy. The patient is currently asymptomatic. Cardiology has also evaluated the patient. cc: MD Andres Whitmore MD MTDD
[2019-08-14] MEDS: NORCO-7.5 PO PRN (16:37)
--- NOTE | 2019-08-14 18:39 | OPERATIVE NOTE ---
PROCEDURE DATE: 08/14/2019 PREOPERATIVE DIAGNOSES: 1. Acute cholecystitis. 2. Congestive heart failure. 3. Cardiomyopathy. POSTOPERATIVE DIAGNOSES: 1. Acute cholecystitis. 2. Congestive heart failure. 3. Cardiomyopathy. PROCEDURE: Laparoscopic cholecystectomy with operative cholangiogram. SURGEON: Capo Neff MD. ANESTHESIA: General. ESTIMATED BLOOD LOSS: 200 mL. COMPLICATIONS: None apparent. SPECIMENS: Gallbladder. FINDINGS: The gallbladder was distended and appeared to be gangrenous. The cholangiogram revealed normal proximal hepatic radicles as well as distal common bile duct with flow of contrast seen in the duodenum without filling defects or stenoses. DRAINS: One #19 Shaun. TECHNIQUE: He was brought to the operating room and placed supine on the table. General anesthesia was induced. He was prepped and draped in usual sterile fashion. Then, 0.25% Marcaine with epinephrine was used to anesthetize our incisions. An 11 mm incision was made below the umbilicus. The fascia was exposed and incised sharply. Entry into the peritoneal cavity was obtained under direct vision with the Optiview device. Pneumoperitoneum was established. The camera was inserted. There was no evidence of injury to underlying structures. He was placed in reverse Trendelenburg and left rotation. Three 5 mm incision ports were placed across the epigastric and right upper quadrant under direct vision. The gallbladder was found below some pericolonic fat that was adherent to the liver. I incised the fat at its attachments to the liver and swept it away foot so that I could expose the dome of the gallbladder. It was very full of fluid. We went ahead and punctured it and drained most of the fluid out of the gallbladder for better retraction and mobility. The dome of the gallbladder was grasped with an Allis clamp and lifted up superiorly. The pyloric area of the stomach and duodenal bulb were somewhat heaped up, obscuring our view of the cystic duct, common duct junction. I did place a 12 mm incision port in the right lateral lower abdomen and a fan retractor was used to hold stomach and duodenum and retract them away. The triangle of Calot was then dissected out with the [place] forceps and hook cautery until the critical view was obtained. The gallbladder liver junction was seen. There were only 2 structures entering the gallbladder, the cystic duct and cystic artery. The artery was clipped proximally and distally and incised between with scissors. A clip was placed on the distal cystic duct. A ductotomy was made proximal to this. A 14-gauge Angiocath was passed through the right upper quadrant. The Taut cholangiogram catheter was passed through this into the cystic duct and held in place with a clip. The cholangiogram was performed with findings as noted above. The clip, catheter, and Angiocath were removed 2 clips. Two clips were placed on the proximal cystic duct. It was divided distal with the use of scissors. The gallbladder was removed from the liver bed. After it was removed, there was moderate bloody ooze throughout the liver bed. The gallbladder was placed in an EndoCatch bag. I irrigated with saline and used cautery as well as Surgicel to obtain hemostasis in the gallbladder fossa. Once this was done, I brought in a 19 Shaun drain and laid along the gallbladder fossa and brought it out through the right lateral port site. It was anchored to the skin with 3-0 nylon. The gallbladder and bag were brought up and out of the umbilical port site extending the skin and fascia about 2 more cm to allow removal of this enlarged gallbladder. The abdomen was desufflated. The ports were removed. The fascia of the umbilicus and right lower quadrant incisions were closed with a running 0 Vicryl. The skin was closed with 4-0 subcuticular Monocryl and Steri-Strips. There were no apparent complications. He was transferred to the recovery room in fair condition. cc: MD Andres Donald MD
[2019-08-14] MEDS: PRAVACHOL PO SCH (21:18)
[2019-08-15] MEDS: ZOSYN 3.375 GM in NS 50 ML IV SCH ×5 (03:43→21:02)
[2019-08-15] MEDS: DILAUDID IV PRN ×3 (04:15→19:32)
[2019-08-15] MEDS: CARAFATE PO SCH ×5 (05:42→20:40)
[2019-08-15 06:52] LABS: BASO# 0.01 X1000 (0.0-0.2); BASO% 0.1 % (0.0-0.8); EOS# 0.26 X1000 (0.0-0.7); EOS% 3.6 % (0.0-10.0); HEMATOCRIT 29.9 % (42.0-52.0); HEMOGLOBIN 9.3 g/dL (14.0-18.0); LYMPH% 12.5 % (20.5-51.1); MCHC 31.1 g/dL (33-37); MCV 102.7 FL (81-99); MONO# 0.69 X1000 (0.11-0.59); MONO% 9.6 % (1.7-9.3); MPV 9.4 FL (7.4-10.4); NEUT# 5.33 X1000 (1.4-6.5); NEUT% 74.2 % (42.2-75.2); PLT 168 X1000 (130-400); RBC 2.91 XMIL (4.7-6.1); RDW 14.9 % (11.5-14.5); WBC 7.19 X1000 (4.8-10.8)
[2019-08-15 07:24] LABS: AGAP 8; BUN 14 mg/dL (8-22); CALCIUM 8.9 mg/dL (8.8-10.2); CHLORIDE 108 mmol/L (98-107); COSMO 283; CREATININE 0.9 mg/dL (0.7-1.2); ESTIMATED GFR > 60; GLUCOSE 95 mg/dL (70-104); POTASSIUM 3.2 mmol/L (3.5-5.1); SODIUM 142 mmol/L (136-145); TCO2 26 mmol/L (25-35)
[2019-08-15] MEDS: NORCO-7.5 PO PRN (09:27)
[2019-08-15] MEDS: FLOMAX PO SCH ×2 (09:30→20:40)
[2019-08-15] MEDS: CORDARONE PO SCH (09:30)
[2019-08-15] MEDS: COREG PO SCH ×2 (09:31→20:40)
--- NOTE | 2019-08-15 12:54 | PROGRESS NOTE ---
DATE: 08/15/2019 SUBJECTIVE: This morning Mr. Rosen refers to be doing fairly okay, still hurting. OBJECTIVE: Vitals: Blood pressure is 130/75, pulse of 65, respirations 17, temperature 97.9 degrees. General: Mr. Rosen is an 79-year-old gentleman. He is in bed, not in any cardiopulmonary distress. Mucosa is pink and moist. Anicteric. Acyanotic. Neck: Neck is supple. Chest: Good air entry bilaterally. Few crackles in the posterior lung pfeiffer. Cardiovascular: Regular rate and rhythm. There were no murmurs. Abdomen: Was soft, minimally distended. There is a tenderness in the right upper quadrant. There is a FATMATA drain in place and there are new laparoscopic scars and the incisions on the abdominal wall. EXECUTIVE DIRECTOR OF MARKETING: Patient is awake, awake, alert and oriented. LABORATORY DATA: WBC is 7.19, hemoglobin is 9.3, platelet count of 168,000. Chemistry is also reviewed, potassium is 3.2. Rest of chemistry is unremarkable. So far, blood cultures have been to 48 hours negative. Surgery report has also been reviewed from yesterday. The findings were the gallbladder was distended and appeared to be gangrenous. The intraoperative cholangiogram was normal. ASSESSMENT: 1. Acute abdomen secondary to gallstone induced cholecystitis with gangrenous changes. Patient is status post laparoscopic cholecystectomy with a normal intraoperative cholangiogram. Today is day 1 postop. Patient still has a FATMATA drain in place and surgery is on board. 2. Chronic atrial fibrillation, currently rate controlled. 3. History of congestive heart failure, currently euvolemic. 4. History of severe dilated ischemic cardiomyopathy. 5. Dyslipidemia. 6. Chronic anticoagulation with apixaban. I think this can be restarted tomorrow 48 hours after the surgery if it is okay with surgery. cc: MD Andres Whitmore MD
[2019-08-15] MEDS: PRAVACHOL PO SCH (20:40)
--- NOTE | 2019-08-16 00:14 | GENERAL SURGERY PROGRESS NOTE ---
DATE: 08/15/2019 SUBJECTIVE: The patient feels better. He is still having some abdominal pain, but it is not as bad as before surgery. He denies nausea or vomiting. He is tolerating some sips of water. OBJECTIVE: He is afebrile. Vital signs are stable.General: He is awake, alert and oriented x3, in no acute distress. Gastrointestinal: Soft, nondistended. Appropriately tender. Incisions are clean, dry and intact. FATMATA drain is serosanguineous, without bile. LABORATORY DATA: White blood cell count 7, hemoglobin 9.3, hematocrit 29.9. Electrolytes reviewed and unremarkable. ASSESSMENT AND PLAN: An 79-year-old male postoperative day 1, laparoscopic cholecystectomy for gangrenous cholecystitis. He is doing better today. We will advance his diet as tolerated. I think we can start his anticoagulation back tomorrow. cc: MD Andres Donald MD
[2019-08-16] MEDS: ZOSYN 3.375 GM in NS 50 ML IV SCH ×2 (04:29→09:45)
[2019-08-16] MEDS: CARAFATE PO SCH ×5 (05:59→21:21)
[2019-08-16] MEDS: CORDARONE PO SCH (08:20)
[2019-08-16] MEDS: FLOMAX PO SCH ×2 (08:20→21:22)
[2019-08-16] MEDS: COREG PO SCH ×2 (08:20→21:21)
[2019-08-16] MEDS: DILAUDID IV PRN ×3 (08:28→16:54)
[2019-08-16] MEDS: NORCO-7.5 PO PRN ×2 (09:45→15:04)
[2019-08-16] MEDS: ZOFRAN IV PRN ×2 (09:45→17:00)
[2019-08-16] MEDS ORDERED: DULCOLAX PR ONE (11:45)
--- NOTE | 2019-08-16 13:25 | PROGRESS NOTE ---
DATE: 08/16/2019 Today Mr. Chew refers to be feeling slightly nauseated. He said he has not had any bowel movement yet. He has been started on full liquid diet by surgery since yesterday. OBJECTIVE: Vital signs: Blood pressure is 96/62, pulse of 63, respirations 12, temperature 98.1 degrees. General: Mr. Sotomayor is an 79-year-old gentleman. He is in bed. He did not seem to be in any cardiopulmonary distress. Mucosa is pink and moist. Anicteric. Acyanotic. Neck: Supple. Chest: Good air entry bilaterally. Few crackles posteriorly. Cardiovascular: Regular rate and rhythm. GI: Abdomen soft, distended, and minimally tender, especially around the FATMATA drain. There are laparoscopic incisions on the anterior abdominal wall. Bowel sounds are remarkably reduced. REHAB CARE ASSISTANT: Patient is awake, alert. Follows basic commands. LAB WORK: No labwork for this morning. No imaging studies for this morning either. So far microbiology data is 48 hours negative. CURRENT MEDICATIONS: Have all been reviewed. 1. He has been back on his Eliquis at 2.5 b.i.d. 2. Amiodarone 200 daily. 3. Carvedilol 6.25 b.i.d. 4. Dilaudid 1 mg IV q. 3 h. p.r.n. 5. Zosyn 3.375 g every 6 hours. 6. Carafate. ASSESSMENT: 1. Acute abdomen secondary to gallstone induced gangrenous cholecystitis. Patient is status post laparoscopic cholecystectomy with a normal intraoperative cholangiogram. Today is day 2 postop. There is a FATMATA drain in place, which seems to be draining a lot. Surgery is on board. 2. Chronic atrial fibrillation currently rate controlled on amiodarone and beta chucky. Patient is also on Eliquis for stroke prophylaxis. 3. History of congestive heart failure, currently euvolemic. 4. Severe dilated ischemic cardiomyopathy. 5. Dyslipidemia. 6. Chronic anticoagulation with apixaban. The patient has been restarted on medications. 7. Distended abdomen, most likely due to postoperative ileus. The patient has been encouraged to be mobile. We will get him some Dulcolax rectal to help him with bowel movement. cc: MD Andres Whitmore MD
--- NOTE | 2019-08-16 19:27 | GENERAL SURGERY PROGRESS NOTE ---
DATE: 08/16/2019 SUBJECTIVE: The patient is doing okay. He has some abdominal soreness. It is not severe. He has been drinking some liquids without vomiting. He does not have much of an appetite at this point. He has passed gas. OBJECTIVE: Vital signs: He is afebrile. Vital signs are stable. General: He is awake and alert. No acute distress. Respiratory: No increased work of breathing. Cardiovascular: Regular rate and rhythm. Gastrointestinal: Soft, mildly distended. Appropriately tender. Incisional dressings are clean and dry. FATMATA drain is serosanguineous. LABORATORY: None today. ASSESSMENT AND PLAN: An 79-year-old male status post laparoscopic cholecystectomy for gangrenous cholecystitis. He is doing better overall. We will discontinue the Zosyn and start Augmentin for the localized peritonitis, and he should take that for about a week. He can advance his diet as tolerated, and he can be discharged back to rehab from my standpoint. I will see him back in my office in 2 to 3 weeks for a postoperative checkup. cc: MD Andres Donald MD
[2019-08-16] MEDS ORDERED: ELIQUIS PO SCH (21:00)
[2019-08-16] MEDS: PRAVACHOL PO SCH (21:21)
[2019-08-16] MEDS: AUGMENTIN PO SCH (21:22)
[2019-08-17] MEDS: CARAFATE PO SCH ×4 (06:04→20:57)
[2019-08-17] MEDS: DILAUDID IV PRN ×2 (09:55→15:56)
[2019-08-17] MEDS: ZOFRAN IV PRN (09:55)
[2019-08-17] MEDS: AUGMENTIN PO SCH ×2 (09:56→20:57)
[2019-08-17] MEDS: COREG PO SCH ×2 (09:56→20:57)
[2019-08-17] MEDS: ELIQUIS PO SCH ×2 (09:56→20:57)
[2019-08-17] MEDS: FLOMAX PO SCH ×2 (09:57→20:57)
[2019-08-17] MEDS: CORDARONE PO SCH (09:57)
[2019-08-17] MEDS: NORCO-7.5 PO PRN (12:53)
--- NOTE | 2019-08-17 16:49 | PROGRESS NOTE ---
DATE: 08/17/2019 SUBJECTIVE: This morning, Mr. Rosen refers to be doing okay and not much pain as before. He said he has been tolerating his full liquid diet and he did have a bowel movement yesterday. OBJECTIVE: Vital signs: Blood pressure is 114/73, pulse of 77, respirations 16. Temperature is 98.6 degrees. The patient is saturating 98% on room air. General: Mr. Rosen is an 79-year-old, gentleman. He is in bed, in no distress. Mucosa is pink and moist. Anicteric. Acyanotic. Neck: Supple. Chest: Clear to auscultation. No crepitations. No rhonchi. Cardiovascular: Regular rate and rhythm. Abdomen: Soft, minimally distended, but nontender. The right side has a dressing over where the FATMATA drain used to be and the dressing is remarkably soaked. There are also some laparoscopic incisions on the anterior abdominal wall. central nervous system: Patient is awake, alert, and oriented. LABORATORY DATA: None for this morning. CURRENT MEDICATIONS: Have all been reviewed. Antibiotic has been switched to oral. ASSESSMENT AND PLAN: 1. Acute abdomen secondary to gallstone-induced gangrenous cholecystitis. The patient is status post laparoscopic cholecystectomy with a normal intraoperative cholangiogram. Today is day three postoperative. Doing well. Surgery notes refer that the patient can be discharged. However, because he is from a halfway, would have to wait until Monday. 2. Chronic atrial fibrillation. Currently, rate controlled on amiodarone and carvedilol. The patient is also on Eliquis for stroke prophylaxis. 3. History of congestive heart failure. Currently euvolemic. 4. Severe dilated ischemic cardiomyopathy with known ejection fraction of about 20%. 5. Dyslipidemia. 6. Chronic anticoagulation with Eliquis. 7. Mild postoperative ileus. Improved. In general, I think Mr. Rosen is doing well. He wants to go home, but unfortunately he is from a halfway, and I understand he will not be accepted back until Monday, when the admission staff is there. cc: MD Andres Whitmore MD
[2019-08-17] MEDS: PRAVACHOL PO SCH (20:57)
[2019-08-18] MEDS: ZOFRAN IV PRN ×2 (02:04→10:37)
[2019-08-18] MEDS: DILAUDID IV PRN ×2 (02:04→10:37)
[2019-08-18] MEDS: CARAFATE PO SCH ×4 (07:09→21:46)
[2019-08-18] MEDS: CORDARONE PO SCH (08:56)
[2019-08-18] MEDS: AUGMENTIN PO SCH ×2 (08:56→21:46)
[2019-08-18] MEDS: FLOMAX PO SCH ×2 (08:56→21:46)
[2019-08-18] MEDS: ELIQUIS PO SCH ×2 (08:57→21:46)
[2019-08-18] MEDS: COREG PO SCH ×2 (08:57→21:47)
[2019-08-18] MEDS ORDERED: DULCOLAX PR ONE (14:56)
--- NOTE | 2019-08-18 15:17 | PROGRESS NOTE ---
DATE: 08/18/2019 SUBJECTIVE: Today, Mr. Rosen refers to be doing okay. No new complaints. Has not had any bowel movement today but he is tolerating his clears. However, he said this got advanced to a mechanical soft and since then, he has really not been eating that much. OBJECTIVE: Vital Signs: Blood pressure is 99/61, pulse of 70, respirations are 19, temperature is 97.9 degrees. General Examination: Mr. Rosen is an 79-year-old, male. He is in bed. No distress. HEENT: Mucosa is pink and moist. Anicteric. Acyanotic. Neck: Supple. Chest: Good air entry bilaterally. No crepitations. No rhonchi. Cardiovascular: Regular rate and rhythm. There is a generator pocket on the left anterior chest wall. GI: Abdomen is soft. There is a dressing over the surgical incision. There is a dressing over where the FATMATA drain used to be, a few laparoscopic scars on the anterior abdominal wall. The dressing is not soaked like it was yesterday. BEAD WIRE INSULATOR: The patient is awake, alert, and oriented. No lab work for this morning. ASSESSMENT: 1. Acute abdomen on presentation secondary to gallstone-induced gangrenous cholecystitis. The patient is status post laparoscopic cholecystectomy with normal intraoperative cholangiogram. Today is day 4 postoperatively. Surgery is on board. 2. Distended abdomen secondary to a postoperative ileus. We will start the patient on Dulcolax and bowel regimen. It was also advised that he gets mobilized. 3. Chronic atrial fibrillation, currently rate controlled. Patient is on amiodarone and carvedilol. 4. History of congestive heart failure, currently euvolemic. 5. Severe dilated ischemic cardiomyopathy with known ejection fraction of 20%. 6. Dyslipidemia. We will continue with statin. 7. Chronic anticoagulation with Eliquis, noted. PLAN: In general, I think Mr. Rosen is doing well. He still has not had any bowel movement in 2 days. However, he definitely has some good bowel sounds. We are going to add some bowel regimen to his treatment plan to help him evacuate. DISPOSITION: Hopefully, we can get Mr. Rosen to the rehab tomorrow. cc: MD Andres Whitmore MD
[2019-08-18] MEDS: NORCO-7.5 PO PRN (17:55)
[2019-08-18] MEDS: PRAVACHOL PO SCH (21:47)
[2019-08-19 06:54] LABS: HEMATOCRIT 27.4 % (42.0-52.0); HEMOGLOBIN 8.8 g/dL (14.0-18.0); MCH 32.6 PG (27-31); MCHC 32.1 g/dL (33-37); MCV 101.5 FL (81-99); MPV 9.5 FL (7.4-10.4); RBC 2.7 XMIL (4.7-6.1); RDW 14.2 % (11.5-14.5); WBC 7.96 X1000 (4.8-10.8)
[2019-08-19 07:19] LABS: AGAP 5; ALBUMIN 2.4 g/dL (3.5-5.0); BUN 19 mg/dL (8-22); CALCIUM 9.5 mg/dL (8.8-10.2); CHLORIDE 101 mmol/L (98-107); COSMO 274; ESTIMATED GFR > 60; GLUCOSE 101 mg/dL (70-104); IRON SATURATION 25 %; PHOSPHORUS 1.9 mg/dL (2.7-4.5); POTASSIUM 4.6 mmol/L (3.5-5.1); SODIUM 136 mmol/L (136-145); TCO2 30 mmol/L (25-35); TIBC 101 ug/dL; TOTAL IRON 25 ug/dL (53-167); UNBOUND IRON 76 ug/dL (112-346)
[2019-08-19] MEDS: CARAFATE PO SCH ×2 (07:28→12:06)
[2019-08-19 07:36] VITALS: BP 105/57
[2019-08-19 07:46] LABS: FERRITIN 625 ng/mL (30-400)
[2019-08-19] MEDS: CORDARONE PO SCH (08:34)
[2019-08-19] MEDS: ELIQUIS PO SCH (08:34)
[2019-08-19] MEDS: AUGMENTIN PO SCH (08:34)
[2019-08-19] MEDS: FLOMAX PO SCH (08:34)
[2019-08-19] MEDS: COREG PO SCH (08:34)
[2019-08-19] MEDS ORDERED: FLEET ENEMA PR ONE (09:50)
--- NOTE | 2019-08-19 10:42 | DISCHARGE SUMMARY ---
ADMISSION DATE: 08/12/2019 DISCHARGE DATE: 08/19/2019 DISPOSITION: Back to [facility] long-term. ADMISSION DIAGNOSES: 1. Acute cholecystitis. 2. Chronic atrial fibrillation. 3. Hyperlipidemia. 4. Recent gastrointestinal bleed. DISCHARGE DIAGNOSES: 1. Acute abdomen secondary to gallstone-induced gangrenous cholecystitis. 2. Cholelithiasis. 3. Postoperative ileus. 4. Chronic atrial fibrillation. 5. History of congestive heart failure. 6. Severe dilated ischemic cardiomyopathy with known ejection fraction of 20%. 7. Dyslipidemia. 8. Chronic anticoagulation with Eliquis. DISCHARGE MEDICATIONS: 1. Pravastatin 80 mg p.o. at bedtime. 2. Tamsulosin 0.4 p.o. b.i.d. 3. Imuran 50 mg b.i.d. 4. Remicade as directed. 5. Iron. 6. Amiodarone 200 mg p.o. daily. 7. Carvedilol 3.125 b.i.d. 8. Omeprazole 40 mg p.o. daily. 9. Losartan 25 mg p.o. daily. 10. Carafate 1 gram p.o. 4 times per day. 11. Colace 200 mg p.o. at bedtime. 12. Pantoprazole 40 mg b.i.d. 13. Tramadol. 14. Linaclotide 290 mcg p.o. daily. 15. Eliquis 2.5 b.i.d. 16. Amoxil 875 b.i.d. 17. Nepro. 18. Neutra-Phos. CONSULTATIONS DURING THIS ADMISSION: Surgery was consulted. The patient was seen by Dr. Purvis. Cardiology was also consulted. The patient was seen by Dr. Snow. INVASIVE PROCEDURES DONE DURING THIS ADMISSION: Laparoscopic cholecystectomy with intraoperative cholangiogram was done by Dr. Neff on 08/14/2019. PRESENTING COMPLAINT: Abdominal pain. HISTORY OF PRESENTING COMPLAINT: Mr. Rosen is an 79-year-old male, who was recently admitted for left hip fracture, follows up with Dr. Moore, went to [facility] from rehab because of abdominal pain. Over there, a CT scan was done which showed acute cholecystitis. The patient was transferred to [facility] for surgical consultation. HOSPITAL COURSE: Mr. Rosen was admitted to the surgical floor, was evaluated by Dr. Purvis. A decision was made for gallbladder removal. However, because of his poor EF, Cardiology consult was made. Mr. Rosen was seen by Cardiology, was evaluated, was cleared for surgery since he did not seem to have any acute decompensation of his chronic cardiac pathologies. Surgery went successfully. Postoperatively, he continues to show some improvement. He was started on clears, and was subsequently advanced as tolerated. He also has had a bowel movement. He has developed mild postoperative ileus, and has been advised mobility and continue with his bowel regimen. This morning, Mr. Rosen refers to be doing well. He tolerated his breakfast today. PHYSICAL EXAMINATION: Current Vital Signs: Blood pressure is 105/57, pulse of 67, respirations 16, temperature 98.4 degrees. General: Mr. Rosen is an 79-year-old male. He is in bed. No distress. Abdomen: Soft. It is minimally distended, but nontender. There are new laparoscopic incision scars on the anterior abdominal wall, but otherwise physical exam is unremarkable. PLAN: We think Mr. Rosen is fairly stable for discharge back to rehab, and continue with physical yazidi. Mr. Rosen will also follow up with Dr. Neff, Dr. Snow, and Dr. Moore. Discharge instructions have been discussed with him. He voiced understanding. TIME SPENT: Time spent for discharge was 37 minutes. cc: MD Capo Whitmore MD Ashish K. Basu, MD Dr. Gill
[2019-08-19] MEDS ORDERED: NEUTRA-PHOS PO SCH (13:00)
== END 2019-08-19 12:45 | DRG 418 ==
LOC: 4N 22:10 → SUATTDRO 22:10 → 4N 22:59 → 2N 08-14 15:06 → 4N 08-16 23:17
PROVIDERS: ATTEND Internal Medicine